=== PATIENT | female | born 1940 | race Caucasian/White ===

== ENCOUNTER 2017-08-31 22:08 | Inpatient (IN) | payer MEDICARE ==
[~2017-08-31] VITALS: Ht 162.6 cm; Wt 52.1 kg
[~2017-08-31 22:08] MED LIST: ASPI81 PO; FISH1000 PO; FURO1TAB93 PO; HYDR-2768 PO; HYDR10TA16 PO; HYDR2.5T PO; METO100T PO; MEVA40TA PO; NIAC500T34 PO; OMEP20TA PO; POTA-71 XX; PRED5 PO; TAB-TAB PO; TEMA15CA PO
[2017-08-31] MEDS ORDERED: SODIUM CHLORIDE 0.9% FLUSH 10 ML FLUSH IVF PRN (22:15)
[2017-08-31 22:19] VITALS: BP 162/75; PULSE 78; RESP 18; O2SAT 95
[2017-08-31] MEDS ORDERED: ONDANSETRON HCL 4 MG/2 ML VIAL ONE (22:27)
[2017-08-31 22:36] LABS: AUTOMATED NEUTROPHIL # 7.1 TH/MM3 (1.8-7.7); BASOPHIL % 0.4 % (0.0-2.0); EOSINOPHIL # 0.1 TH/MM3 (0-0.4); EOSINOPHIL % 1.4 % (0.0-4.0); HEMATOCRIT 42.2 % (35.0-46.0); HEMOGLOBIN 14.3 GM/DL (11.6-15.3); LYMPH % 16.4 % (9.0-44.0); LYMPHOCYTE # 1.5 TH/MM3 (1.0-4.8); MEAN CELL VOLUME 89.8 FL (80.0-100.0); MEAN CORPUSCULAR HEMOGLOBIN 30.5 PG (27.0-34.0); MEAN CORPUSCULAR HGB CONC 33.9 % (32.0-36.0); MONOCYTE # 0.6 TH/MM3 (0-0.9); NEUT % 75.8 % (16.0-70.0); PLATELET COUNT 300 TH/MM3 (150-450); RED CELL DISTRIBUTION WIDTH 13.8 % (11.6-17.2); WHITE BLOOD COUNT 9.3 TH/MM3 (4.0-11.0)
--- NOTE | 2017-08-31 22:44 | RADRPT ---
EXAM DATE/TIME: 08/31/2017 22:18 [facility] COMPARISON: No previous studies available for comparison. INDICATIONS : Right sided weakness. RADIATION DOSE: 52.83 CTDIvol (mGy) MEDICAL HISTORY : Non-responsive. SURGICAL HISTORY : Non-responsive. ENCOUNTER: Initial ACUITY: 1 day PAIN SCALE: Non-responsive LOCATION: cranial TECHNIQUE: Multiple contiguous axial images were obtained of the head. Using automated exposure control and adj ustment of the mA and/or kV according to patient size, radiation dose was kept as low as reasonably a chievable to obtain optimal diagnostic quality images. DICOM format image data is available electro nically for review and comparison. FINDINGS: CEREBRUM: The ventricles are normal for age. There is mild decreased attenuation in the supratentorial white m atter suggesting Kienbck change. No evidence of midline shift, mass lesion, hemorrhage or acute inf arction. No extra-axial fluid collections are seen. POSTERIOR FOSSA: The cerebellum and brainstem are intact. The 4th ventricle is midline. The cerebellopontine angle i s unremarkable. EXTRACRANIAL: The visualized portion of the orbits is intact. SKULL: The calvaria is intact. No evidence of skull fracture. CONCLUSION: 1. No acute findings in the brain. Gordon Huerta MD on August 31, 2017 at 22:41 Board Certified Radiologist. This report was verified electronically.
[2017-08-31] MEDS ORDERED: ONDANSETRON HCL 4 MG/2 ML VIAL IV PUSH ONE (22:45)
[2017-08-31 22:50] VITALS: BP 142/67; PULSE 77; RESP 18; O2SAT 97
[2017-08-31 22:51] LABS: INTERNATIONAL NORMALIZED RATIO 1.2 RATIO; PROTHROMBIN TIME - PATIENT 12.2 SEC (9.8-11.6)
--- NOTE | 2017-08-31 22:51 | RADRPT ---
EXAM DATE/TIME: 08/31/2017 22:24 [facility] COMPARISON: No previous studies available for comparison. INDICATIONS : Possible cerebral vascular accident. MEDICAL HISTORY : None. SURGICAL HISTORY : None. ENCOUNTER: Initial ACUITY: 1 day PAIN SCORE: Non-responsive. LOCATION: Bilateral chest FINDINGS: Mild patient rotation towards the left. Frontal view of the chest demonstrates calcified nodes in th e left hilar and infrahilar region. There is thickening of the minor fissure on the right side, poss ible pleural fluid. Focal prominence infrahilar region on the right side measuring 1.8 cm. Both hem idiaphragms are well delineated. The heart is normal in size for AP technique. Degenerative changes in both shoulders. CONCLUSION: 1. No focal infiltrates seen. 2. 1.8 cm focal opacity right perihilar region of uncertain significance; cannot exclude a focal mass . Gordon Huerta MD on August 31, 2017 at 22:48 Board Certified Radiologist. This report was verified electronically.
[2017-08-31 22:56] LABS: ALBUMIN 3.8 GM/DL (3.4-5.0); AST (GOT) 20 U/L (15-37); BICARBONATE 26.1 MEQ/L (21.0-32.0); BLOOD UREA NITROGEN 14 MG/DL (7-18); CALCIUM 9.5 MG/DL (8.5-10.1); CHLORIDE 103 MEQ/L (98-107); CREATININE 0.93 MG/DL (0.50-1.00); GLOMERULAR FILTRATION RATE 59 ML/MIN (>89); GLUCOSE,RANDOM 139 MG/DL (74-106); SODIUM (NA) 139 MEQ/L (136-145)
[2017-08-31 22:57] LABS: ALT (GPT) 16 U/L (10-53)
[2017-08-31 23:00] LABS: ALKALINE PHOSPHATASE 44 U/L (45-117); TOTAL BILIRUBIN ADULT 0.9 MG/DL (0.2-1.0); TOTAL PROTEIN 7.5 GM/DL (6.4-8.2); TROPONIN I LESS THAN 0.02 NG/ML (0.02-0.05)
[2017-08-31] MEDS ORDERED: ASPIRIN 325 MG TAB PO ONE (23:00)
--- NOTE | 2017-08-31 23:04 | PD ---
HPI Chief Complaint: Neuro Symptoms/ Deficits Time Seen by Provider: 22:13 Travel History International Travel<30 days: No Contact w/Intl Traveler<30days: No Traveled to known affect area: No History of Present Illness HPI 76-year-old female patient presents to the ER today brought in by EMS, stroke alert had been called in the field, patient was last seen normal by family according to EMS at 3:30 PM, somebody had talked her over the phone, and this evening, she appears disoriented, slurred speech, aphasic. I was not able to get much more history from her. Modifying Factors: None Associated Signs & Symptoms: Altered mental status, slurred speech, phasic Risk Factors: Elderly PFSH Past Medical History Arthritis: Yes Cancer: No Cardiac Catheterization: Yes Cardiovascular Problems: Yes High Cholesterol: Yes Chest Pain: No Congestive Heart Failure: Yes Diabetes: No Diminished Hearing: No Gastrointestinal Disorders: No Glaucoma: No Hepatitis: No Hiatal Hernia: No Hypertension: Yes Respiratory: Yes (COPD) Integumentary: No Immunizations Current: Yes Thyroid Disease: No Past Surgical History Abdominal Surgery: Yes Appendectomy: Yes Hysterectomy: Yes Social History Alcohol Use: No Tobacco Use: Yes (1/2-1PPD) Substance Use: No Allergies-Medications (Allergen,Severity, Reaction): Coded Allergies: No Known Allergies (Unverified Adverse Reaction, Unknown, 08/31/17) Reported Meds & Prescriptions Reported Meds & Active Scripts Active Reported Hydrochlorothiazide 12.5 Mg Tab 12.5 Mg PO DAILY Aspirin 81 Mg Chew 81 Mg CHEW DAILY EC-Naprosyn (Naproxen) 500 Mg Tabdr 500 Mg PO BID Metoprolol Tartrate 100 Mg Tab 100 Mg PO BID Omeprazole 20 Mg Tab 20 Mg PO DAILY Meclizine (Meclizine HCl) 12.5 Mg Tab 12.5 Mg PO DIRECTED PRN Unisom Sleepgels (Diphenhydramine (Sleep)) 50 Mg Cap 50 Mg PO HS PRN Losartan (Losartan Potassium) 100 Mg Tab 100 Mg PO DAILY Promethazine (Promethazine HCl) 12.5 Mg Tab 12.5 Mg PO Q6H PRN Lovastatin 20 Mg Tab 20 Mg PO DAILY Prednisone 2.5 Mg Tab 2.5 Mg PO DAILY Furosemide 40 Mg Tab 40 Mg PO DAILY Review of Systems ROS Limitations: Altered Mental Status Physical Exam Narrative GENERAL: Well-developed elderly white female patient who is currently in moderate distress. Awake, oriented to self, poorly directable, not following directions appropriately. SKIN: Focused skin assessment warm/dry. HEAD: Atraumatic. Normocephalic. EYES: Pupils equal and round. No scleral icterus. No injection or drainage. ENT: No nasal bleeding or discharge. Mucous membranes pink and moist. NECK: Trachea midline. No JVD. CARDIOVASCULAR: Regular rate and rhythm. No murmur appreciated. RESPIRATORY: No accessory muscle use. Clear to auscultation. Breath sounds equal bilaterally. GASTROINTESTINAL: Abdomen soft, non-tender, nondistended. Hepatic and splenic margins not palpable. MUSCULOSKELETAL: No obvious deformities. No clubbing. No cyanosis. No edema. NEUROLOGICAL: Awake and alert. Mild facial asymmetry. Motor grossly within normal limits although exam is fairly limited because the patient is disoriented and not following directions well. Aphasic. PSYCHIATRIC: Disoriented; insight and judgment poor. Data Data Last Documented VS Vital Signs Date Time Temp Pulse Resp B/P (MAP) Pulse Ox O2 Delivery O2 Flow Rate FiO2 08/31/17 22:50 77 18 142/67 (92) 97 Nasal Cannula 2.00 Orders Orders Electrocardiogram (08/31/17 22:13) Prothrombin Time / Inr (Pt) (08/31/17 22:13) Act Partial Throm Time (Ptt) (08/31/17 22:13) Complete Blood Count With Diff (08/31/17 22:13) Comprehensive Metabolic Panel (08/31/17 22:13) Troponin I (08/31/17 22:13) Urinalysis - C+S If Indicated (08/31/17 22:13) Ct Brain W/O Iv Contrast(Rout) (08/31/17 22:13) Cta Brain W Iv Contrast W 3d (08/31/17 22:13) Cta Neck W Iv Contrast W 3d (08/31/17 22:13) Chest, Single Ap (08/31/17 22:13) Ecg Monitoring (08/31/17 22:13) Iv Access Insert/Monitor (08/31/17 22:13) Oximetry (08/31/17 22:13) Sodium Chloride 0.9% Flush (Ns Flush) (08/31/17 22:15) Ondansetron Inj (Zofran Inj) (08/31/17 22:27) Ondansetron Inj (Zofran Inj) (08/31/17 22:45) Aspirin (Aspirin) (08/31/17 23:00) Urine Culture (08/31/17 22:37) Iohexol 350 Inj (Omnipaque 350 Inj) (08/31/17 23:29) Blood Culture (08/31/17 23:45) Piperacil-Tazo 4.5 Gm Premix (Zosyn 4.5 (08/31/17 23:45) Admit Order (Ed Use Only) (09/01/17 00:16) Admit To Inpatient (09/01/17 ) Code Status (09/01/17 00:18) Vital Signs (Adult) Q4H (09/01/17 00:18) Nih Stroke Scale - Nihss .On admission and discharge (09/01/17 00:18) Neuro Checks Q4H (09/01/17 00:18) Case Management Consult (09/01/17 ) Activity Bed Rest (09/01/17 00:18) Nursing Bedside Swallow Assess .ONCE (09/01/17 00:18) Scd Bilateral/Knee High DIANA.QSHIFT (09/01/17 00:18) Diet Npo (09/01/17 Breakfast) Hemoglobin (Hgb) A1c (09/01/17 06:00) Lipid Profile (09/01/17 06:00) ^ Hold Medication (09/01/17 00:18) Consult Neurology (09/01/17 ) Sodium Chloride 0.9% Flush (Ns Flush) (09/01/17 09:00) Sodium Chloride 0.9% Flush (Ns Flush) (09/01/17 00:30) Enalaprilat Inj (Vasotec Inj) (09/01/17 00:30) Aspirin Supp (Aspirin Supp) (09/01/17 09:00) Bedside Glucose DIANA.CSUGAR (09/01/17 00:18) ^ Discontinue Insulin Orders (09/01/17 00:18) Insulin Aspart Supplemtl Scale (Novolog (09/01/17 08:00) Dextrose 50% In Jack (Vial) Inj (D50w (Vi (09/01/17 00:30) Glucagon Inj (Glucagon Inj) (09/01/17 00:30) Harness Placer / Telemetry DIANA.Q8H (09/01/17 00:18) Consult Stroke Navigator (09/01/17 ) Scd Bilateral/Knee High DIANA.BID (09/01/17 00:18) Reji Bilateral/Knee High DIANA.QSHIFT (09/01/17 00:20) Inpatient Certification (09/01/17 ) Labs Laboratory Tests Test 08/31/17 22:20 08/31/17 22:37 White Blood Count 9.3 TH/MM3 Red Blood Count 4.70 MIL/MM3 Hemoglobin 14.3 GM/DL Hematocrit 42.2 % Mean Corpuscular Volume 89.8 FL Mean Corpuscular Hemoglobin 30.5 PG Mean Corpuscular Hemoglobin Concent 33.9 % Red Cell Distribution Width 13.8 % Platelet Count 300 TH/MM3 Mean Platelet Volume 7.0 FL Neutrophils (%) (Auto) 75.8 % Lymphocytes (%) (Auto) 16.4 % Monocytes (%) (Auto) 6.0 % Eosinophils (%) (Auto) 1.4 % Basophils (%) (Auto) 0.4 % Neutrophils # (Auto) 7.1 TH/MM3 Lymphocytes # (Auto) 1.5 TH/MM3 Monocytes # (Auto) 0.6 TH/MM3 Eosinophils # (Auto) 0.1 TH/MM3 Basophils # (Auto) 0.0 TH/MM3 CBC Comment DIFF FINAL Differential Comment Prothrombin Time 12.2 SEC Prothromb Time International Ratio 1.2 RATIO Activated Partial Thromboplast Time 22.9 SEC Blood Urea Nitrogen 14 MG/DL Creatinine 0.93 MG/DL Random Glucose 139 MG/DL Total Protein 7.5 GM/DL Albumin 3.8 GM/DL Calcium Level 9.5 MG/DL Alkaline Phosphatase 44 U/L Aspartate Amino Transf (AST/SGOT) 20 U/L Alanine Aminotransferase (ALT/SGPT) 16 U/L Total Bilirubin 0.9 MG/DL Sodium Level 139 MEQ/L Potassium Level 3.3 MEQ/L Chloride Level 103 MEQ/L Carbon Dioxide Level 26.1 MEQ/L Anion Gap 10 MEQ/L Estimat Glomerular Filtration Rate 59 ML/MIN Troponin I LESS THAN 0.02 NG/ML Urine Color YELLOW Urine Turbidity HAZY Urine pH 6.5 Urine Specific [place] 1.017 Urine Protein 30 mg/dL Urine Glucose (UA) NEG mg/dL Urine Ketones NEG mg/dL Urine Occult Blood MOD Urine Nitrite NEG Urine Bilirubin NEG Urine Urobilinogen LESS THAN 2.0 MG/DL Urine Leukocyte Esterase LARGE Urine RBC 72 /hpf Urine WBC /hpf Urine WBC Clumps MOD Urine Squamous Epithelial Cells 2 /hpf Urine Bacteria OCC /hpf Urine Mucus FEW /lpf Urine Yeast (Budding) MANY Microscopic Urinalysis Comment CATH-CULTURE IND MDM Medical Decision Making Medical Screen Exam Complete: Yes Emergency Medical Condition: Yes Medical Record Reviewed: Yes Interpretation(s) EKG shows normal sinus rhythm at a rate of 74 bpm. No signs of acute ST elevations. T-wave inversions notable in the lateral leads. Differential Diagnosis CVA versus ICH versus metabolic issues versus dehydration Narrative Course Patient's last normal was in dispute, her daughter states it was 10 PM last night, and 72 also told EMS at [address], patient would be out of TPA window. CAT scan initially did not show any signs of acute intracranial processes. Aspirin was given as a precaution for possible CVA. She had UTI on lab work and IV antibiotics were initiated after cultures were drawn. Lab work otherwise did not show any significant metabolic issues. My plan would be to admit her for further treatment at this point. Case was discussed with Dr. Smyth for admission. Diagnosis Primary Impression: Altered mental status Admitting Information Admitting Physician Requests: Admit Salvador Madrigal MD Aug 31, 2017 23:04
[2017-08-31 23:05] LABS: BACTERIA, URINE OCC /hpf; BILIRUBIN, URINE NEG (NEG); BLOOD, URINE MOD (NEG); GLUCOSE,URINE NEG (NEG); KETONE, URINE NEG (NEG); MUCUS URINE FEW /lpf (OCC); NITRITE,URINE NEG (NEG); PH, URINE 6.5 (5.0-8.5); SQUAMOUS EPITHELIAL CELL URINE 2 /hpf (0-5); URINE COLOR YELLOW (YELLW/STRAW); URINE LEUKOCYTE ESTERASE LARGE (NEG); WHITE BLOOD CELL CLUMPS MOD
[2017-08-31] MEDS ORDERED: NAPR-810 PO (23:18)
[2017-08-31] MEDS ORDERED: UNIS50CA PO (23:18)
[2017-08-31] MEDS ORDERED: METO100T PO (23:18)
[2017-08-31] MEDS ORDERED: LOSA100T PO (23:18)
[2017-08-31] MEDS ORDERED: PROM12.54 PO (23:18)
[2017-08-31] MEDS ORDERED: PRED2.5T PO (23:18)
[2017-08-31] MEDS ORDERED: ASPI-516 CHEW (23:18)
[2017-08-31] MEDS ORDERED: MECL12.574 PO (23:18)
[2017-08-31] MEDS ORDERED: LOVA20TA PO (23:18)
[2017-08-31] MEDS ORDERED: FURO40TA PO (23:18)
[2017-08-31] MEDS ORDERED: OMEP20TA93 PO (23:18)
[2017-08-31] MEDS ORDERED: HYDR12.56 PO (23:18)
[2017-08-31] MEDS ORDERED: IOHEXOL 350 MG/ML 10 ML VIAL (for RAD DIAG) IVCONTRAST ONE (23:29)
--- NOTE | 2017-08-31 23:42 | RADRPT ---
EXAM DATE/TIME: 08/31/2017 23:08 [facility] COMPARISON: No previous studies available for comparison. INDICATIONS : Right sided weakness. IV CONTRAST: 75 cc Omnipaque 350 (iohexol) IV ; Cumulative dose for multiple exams. RADIATION DOSE: 9.78 CTDIvol (mGy) ; Combined studies MEDICAL HISTORY : Non-responsive. SURGICAL HISTORY : Non-responsive. ENCOUNTER: Initial ACUITY: 1 day PAIN SCALE: 0/10 LOCATION: neck Elevated flow velocities and ICA/CCA ratios have been found to correlate with increased degrees of vessel stenosis, calculated as percentage of diameter relative to a normal segment of distal ICA/CCA. TECHNIQUE: Volumetric scanning was performed using a multirow detector CT scanner. The data was post processed with a variety of visualization algorithms including full-volume maximum intensity projection, multip lanar sliding thin-slab reformation, curved-planar reformation, and surface-rendering techniques. Us ing automated exposure control and adjustment of the mA and/or kV according to patient size, radiatio n dose was kept as low as reasonably achievable to obtain optimal diagnostic quality images. DICOM f ormat image data is available electronically for review and comparison. FINDINGS: AORTIC ARCH: There is a three-vessel origin of the great vessels from the aorta. No evidence of ostial narrowing. RIGHT CAROTID: The common carotid artery is intact. The carotid bulb has a normal configuration without ulceration o r narrowing. The internal carotid artery lumen is smooth without stenosis. The external carotid garret ry is intact. LEFT CAROTID: The common carotid artery is intact. The carotid bulb has a normal configuration without ulceration or narrowing. The internal carotid artery lumen is smooth without stenosis. The external carotid ar ekta is intact. VERTEBRALS: The vertebral arteries have a symmetric diameter. No stenotic lesions are seen. CONCLUSION: Negative CTA of the carotids. Gordon Huerta MD on August 31, 2017 at 23:33 Board Certified Radiologist. This report was verified electronically.
[2017-08-31] MEDS ORDERED: PIPERACIL-TAZO 4.5 GM PREMIX 100 ML IV ONE (23:45)
--- NOTE | 2017-08-31 23:49 | RADRPT ---
EXAM DATE/TIME: 08/31/2017 23:08 [facility] COMPARISON: No previous studies available for comparison. INDICATIONS : Right side weakness. IV CONTRAST: 75 cc Omnipaque 350 (iohexol) IV ; Cumulative dose for multiple exams. RADIATION DOSE: 9.78 CTDIvol (mGy) MEDICAL HISTORY : Non-responsive. SURGICAL HISTORY : Non-responsive. ENCOUNTER: Initial ACUITY: 1 day PAIN SCALE: 0/10 LOCATION: cranial TECHNIQUE: Volumetric scanning was performed using a multi-row detector CT scanner. The data was post processed with a variety of visualization algorithms including full volume maximum intensity projection, multi -planar sliding thin slab reformation, curved planar reformation, and surface rendering techniques. Using automated exposure control and adjustment of the mA and/or kV according to patient size, radiat ion dose was kept as low as reasonably achievable to obtain optimal diagnostic quality images. DICO M format image data is available electronically for review and comparison. FINDINGS: There is excellent visualization of the major intracranial arteries out to the second-order branch ve ssels. There is no evidence vessel truncation or stenosis, and no evidence for vascular malformation . 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 Flow is seen in the left PCOM. The right posterior cerebral artery arises from the anterior circulat ion. Intercommunicating artery is not identified. CONCLUSION: No evidence of vessel truncation. 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 Gordon Huerta MD on August 31, 2017 at 23:44 Board Certified Radiologist. This report was verified electronically.
[2017-09-01] VITALS (9 sets, daily range): BP systolic 121–179; BP diastolic 66–91; PULSE 75–91; RESP 14–22; TEMP 97.2–99.5; O2SAT 91–100
[2017-09-01] MEDS ORDERED: ENALAPRILAT 1.25 MG/ML VIAL IV PUSH PRN (00:30)
[2017-09-01] MEDS ORDERED: SODIUM CHLORIDE 0.9% FLUSH 10 ML FLUSH IV FLUSH PRN (00:30)
[2017-09-01] MEDS ORDERED: DEXTROSE 50% IN WATER 50 ML VIAL(D50) IV PUSH PRN (00:30)
[2017-09-01] MEDS ORDERED: GLUCAGON 1 MG/ML VIAL OTHER PRN (00:30)
--- NOTE | 2017-09-01 02:44 | HHI.HP ---
[facility] Unknown Admission Diagnosis Altered mental status/TIA/UTI Diagnoses: (1) Encephalopathy Diagnosis: Principal (2) CVA (cerebral vascular accident) Diagnosis: Principal (3) UTI (urinary tract infection) Diagnosis: Principal Travel History International Travel<30 Days: No Contact w/Intl Traveler <30 Da: No Traveled to Known Affected Are: No History of Present Illness This is a 76-year-old female with a PMH of HTN, Hyperlipidemia, COPD and Tobacco Abuse who is brought to the ER by EMS secondary to AMS, Stroke Alert initiated in field prior to arrival. Pt unable to provide any history as she is aphasic, not following commands. Per Daughter, pt is AA&Ox4 at baseline, ambulates without difficulty. Today pt noted to be confused, not making sense, slurring speech at approx 3:30pm. On arrival, BP 142/67, HR 77, O2 sat 97% on 2L NC, Afebrile. CBC unremarkable. Chemistry unremarkable with the. GFR 59. Troponin negative. INR 1.2. CXR with no focal infiltrates, 1.8 cm opacity right perihilar region, cannot exclude mass. CT Head negative. 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 CTA Neck negative. S/p Zosyn in ER. Review of Systems Except as stated in HPI: all other systems reviewed are Neg ROS: Unable to obtain secondary to AMS. Past Family Social History Past Medical History PMH: HTN, Hyperlipidemia, COPD and Tobacco Abuse Past Surgical History PAST SURGICAL HISTORY: Appendectomy, Hysterectomy Allergies: Coded Allergies: No Known Allergies (Unverified Allergy, Unknown, 09/01/17) Family History PAST FAMILY HISTORY: Reviewed. No h/o DM or CAD Social History PAST SOCIAL HISTORY: Positive for tobacco. Negative for alcohol or drugs. Physical Exam Vital Signs Vital Signs Date Time Temp Pulse Resp B/P (MAP) Pulse Ox O2 Delivery O2 Flow Rate FiO2 09/01/17 01:30 98.5 79 22 173/81 (111) 92 09/01/17 01:20 08/31/17 22:50 77 18 142/67 (92) 97 Nasal Cannula 2.00 08/31/17 22:19 78 18 162/75 (104) 95 Room Air Physical Exam PE: GENERAL: Elderly white female, mildly agitated, says "yes" to name otherwise not following commands. HEENT: PERRLA, EOMI. No scleral icterus or conjunctival pallor. No lid lag or facial droop. CARDIOVASCULAR: Regular rate and rhythm. No obvious murmurs to auscultation. No chest tenderness to palpation. RESPIRATORY: No obvious rhonchi or wheezing. Clear to auscultation. Breath sounds equal bilaterally. GASTROINTESTINAL: Abdomen soft, non-tender, nondistended. BS normal. MUSCULOSKELETAL: Extremities without clubbing, cyanosis, or edema. No obvious deformities. NEUROLOGICAL: Awake, confused, difficult to assess strength as not following commands. Moving both upper and lower extremities spontaneously. Laboratory Laboratory Tests Test 08/31/17 22:20 08/31/17 22:37 White Blood Count 9.3 Red Blood Count 4.70 Hemoglobin 14.3 Hematocrit 42.2 Mean Corpuscular Volume 89.8 Mean Corpuscular Hemoglobin 30.5 Mean Corpuscular Hemoglobin Concent 33.9 Red Cell Distribution Width 13.8 Platelet Count 300 Mean Platelet Volume 7.0 Neutrophils (%) (Auto) 75.8 Lymphocytes (%) (Auto) 16.4 Monocytes (%) (Auto) 6.0 Eosinophils (%) (Auto) 1.4 Basophils (%) (Auto) 0.4 Neutrophils # (Auto) 7.1 Lymphocytes # (Auto) 1.5 Monocytes # (Auto) 0.6 Eosinophils # (Auto) 0.1 Basophils # (Auto) 0.0 CBC Comment DIFF FINAL Differential Comment Prothrombin Time 12.2 Prothromb Time International Ratio 1.2 Activated Partial Thromboplast Time 22.9 Blood Urea Nitrogen 14 Creatinine 0.93 Random Glucose 139 Total Protein 7.5 Albumin 3.8 Calcium Level 9.5 Alkaline Phosphatase 44 Aspartate Amino Transf (AST/SGOT) 20 Alanine Aminotransferase (ALT/SGPT) 16 Total Bilirubin 0.9 Sodium Level 139 Potassium Level 3.3 Chloride Level 103 Carbon Dioxide Level 26.1 Anion Gap 10 Estimat Glomerular Filtration Rate 59 Troponin I LESS THAN 0.02 Urine Color YELLOW Urine Turbidity HAZY Urine pH 6.5 Urine Specific [place] 1.017 Urine Protein 30 Urine Glucose (UA) NEG Urine Ketones NEG Urine Occult Blood MOD Urine Nitrite NEG Urine Bilirubin NEG Urine Urobilinogen LESS THAN 2.0 Urine Leukocyte Esterase LARGE Urine RBC 72 Urine WBC Urine WBC Clumps MOD Urine Squamous Epithelial Cells 2 Urine Bacteria OCC Urine Mucus FEW Urine Yeast (Budding) MANY Microscopic Urinalysis Comment CATH-CULTURE IND Date/Time Source Procedure Growth Status 09/01/17 00:13 Blood Peripheral Aerobic Blood Culture Pending Received 09/01/17 00:13 Blood Peripheral Anaerobic Blood Culture Pending Received 08/31/17 22:37 Urine Catheterized Urine Urine Culture Pending Worksheet Result Diagram: 08/31/17221908/31/172219 Caprini VTE Risk Assessment Caprini VTE Risk Assessment: No/Low Risk (score <= 1) Caprini Risk Assessment Model Point Value = 1 Point Value = 2 Point Value = 3 Point Value = 5 Age 41-60 Minor surgery BMI > 25 kg/m2 Swollen legs Varicose veins or History of unexplained or recurrent spontaneous Oral contraceptives or hormone replacement Sepsis (< 1 month) Serious lung disease, including pneumonia (< 1 month) Abnormal pulmonary function Acute myocardial infarction Congestive heart failure (< 1 month) History of inflammatory bowel disease Medical patient at bed rest Age 61-74 Arthroscopic surgery Major open surgery (> 45 min) Laparoscopic surgery (> 45 min) Malignancy Confined to bed (> 72 hours) Immobilizing plaster cast Central venous access Age >= 75 History of VTE Family history of VTE Factor V Leiden Prothrombin [id number] Lupus anticoagulant Anticardiolipin antibodies Elevated serum homocysteine Heparin-induced thrombocytopenia Other congenital or acquired thrombophilia Stroke (< 1 month) Elective arthroplasty Hip, pelvis, or leg fracture Acute spinal cord injury (< 1 month) Prophylaxis Regimen Total Risk Factor Score Risk Level Prophylaxis Regimen 0-1 Low Early ambulation 2 Moderate Order ONE of the following: *Sequential Compression Device (SCD) *Heparin 5000 units SQ BID 3-4 Higher Order ONE of the following medications: *Heparin 5000 units SQ TID *Enoxaparin/Lovenox 40 mg SQ daily (WT < 150 kg, CrCl > 30 mL/min) *Enoxaparin/Lovenox 30 mg SQ daily (WT < 150 kg, CrCl > 10-29 mL/min) *Enoxaparin/Lovenox 30 mg SQ BID (WT < 150 kg, CrCl > 30 mL/min) AND/OR *Sequential Compression Device (SCD) 5 or more Highest Order ONE of the following medications: *Heparin 5000 units SQ TID (Preferred with Epidurals) *Enoxaparin/Lovenox 40 mg SQ daily (WT < 150 kg, CrCl > 30 mL/min) *Enoxaparin/Lovenox 30 mg SQ daily (WT < 150 kg, CrCl > 10-29 mL/min) *Enoxaparin/Lovenox 30 mg SQ BID (WT < 150 kg, CrCl > 30 mL/min) AND *Sequential Compression Device (SCD) Assessment and Plan Problem List: (1) Encephalopathy ICD Code: G93.40 - Encephalopathy, unspecified (2) CVA (cerebral vascular accident) ICD Code: I63.9 - Cerebral infarction, unspecified (3) UTI (urinary tract infection) ICD Code: N39.0 - Urinary tract infection, site not specified Assessment and Plan A/P: 1. Encephalopathy: acute episode of AMS noted by family, previously AA&Ox4 at baseline per Daughter. Neuro Checks. CT Head w/ no acute findings, images reviewed by me. Possibly compounded by UTI, continue w/ IV Rocephin. 2. CVA: slurred speech/confusion noted at 3:30pm, outside TPA window, previously aphasic, now able to say "yes". Difficult to assess strength as not following commands. CTA Head w/ no truncation, 3mm calcified aneurysm right ICA , CTA Neck negative, images reviewed by me. NPO, IVF, PT/Speech Consult for eval/tx. Consult Neurology for further evaluation. 3. UTI: U/a w/ UTI, follow up cultures, continue w/ IV Abx, IVF. 4. DVT Prophylaxis: SCD/Teds 5. Social work for d/c planning as needed. 6. Case discussed w/ ER physician at length, labs/records/imaging reviewed by me. Physician Certification 2 Midnight Certification Type: Admission for Inpatient Services Order for Inpatient Services The services are ordered in accordance with Medicare regulations or non- Medicare payer requirements, as applicable. In the case of services not specified as inpatient-only, they are appropriately provided as inpatient services in accordance with the 2-midnight benchmark. Estimated LOS (days): 2 days is the estimated time the patient will need to remain in the hospital, assuming treatment plan goals are met and no additional complications. Post-Hospital Plan: Not yet determined Nicolle Smyth MD Sep 01, 2017 02:44
[2017-09-01] MEDS ORDERED: ONDANSETRON HCL 4 MG/2 ML VIAL IV PUSH PRN (04:00)
[2017-09-01 07:08] LABS: CHOLESTEROL 207 MG/DL (120-200); TRIGLYCERIDES 148 MG/DL (42-150)
[2017-09-01 07:09] LABS: CHOLESTEROL/ HDL RATIO 3.39 RATIO; LDL CHOLESTEROL 116 MG/DL (0-99)
[2017-09-01] MEDS: INSULIN ASPART SUPPLEMENTAL SCALE SQ SCH ×4 (07:39→20:19)
[2017-09-01] MEDS: SODIUM CHLORIDE 0.9% FLUSH 10 ML FLUSH IV FLUSH SCH ×2 (07:44→21:00)
[2017-09-01] MEDS ORDERED: ASPIRIN 300 MG SUPP RECTAL SCH (09:00)
[2017-09-01] MEDS ORDERED: ASPIRIN 81 MG CHEW TAB CHEW SCH (09:00)
[2017-09-01] MEDS ORDERED: MECLIZINE HCL 25 MG TAB PO PRN (09:00)
[2017-09-01] MEDS ORDERED: POTASSIUM CHLORIDE 25 MEQ EFFERVESCENT TAB PO ONE (09:15)
[2017-09-01] MEDS: POTASSIUM CHLORIDE 25 MEQ EFFERVESCENT TAB PO ONE ×2 (09:15→11:05)
[2017-09-01] MEDS ORDERED: ASPIRIN 325 MG TAB PO SCH (09:15)
--- NOTE | 2017-09-01 09:18 | HHI.PR ---
Subjective Remarks This is a 76-year-old female with a PMH of HTN, Hyperlipidemia, COPD and Tobacco Abuse who is brought to the ER by EMS secondary to AMS, Stroke Alert initiated in field prior to arrival. Pt unable to provide any history as she is aphasic, not following commands. Per Daughter, pt is AA&Ox4 at baseline, ambulates without difficulty. Today pt noted to be confused, not making sense, slurring speech at approx 3:30pm. On arrival, BP 142/67, HR 77, O2 sat 97% on 2L NC, Afebrile. CBC unremarkable. Chemistry unremarkable with the. GFR 59. Troponin negative. INR 1.2. CXR with no focal infiltrates, 1.8 cm opacity right perihilar region, cannot exclude mass. CT Head negative. 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 CTA Neck negative. S/p Zosyn in ER. 09-01 patient remains totally aphasic Not able to follow any commands. Past swallow eval with pured diet and thickened liquids We will resume her home medications Continue on aspirin and statin Await neurological evaluation Physical therapy, occupational therapy, and speech therapy evaluations Objective Vitals Vital Signs Date Time Temp Pulse Resp B/P (MAP) Pulse Ox O2 Delivery O2 Flow Rate FiO2 09/01/17 04:00 98.4 91 20 179/84 (115) 95 09/01/17 04:00 86 09/01/17 02:10 84 09/01/17 01:30 98.5 79 22 173/81 (111) 92 09/01/17 01:20 08/31/17 22:50 77 18 142/67 (92) 97 Nasal Cannula 2.00 08/31/17 22:19 78 18 162/75 (104) 95 Room Air I/O 08/31/17 08/31/17 08/31/17 09/01/17 09/01/17 09/01/17 07:00 15:00 23:00 07:00 15:00 23:00 Intake Total 100 ml Balance 100 ml Intake Oral 0 ml IV Total 100 ml # Voids 1 # Bowel Movements 0 Result Diagram: 08/31/17 2220 08/31/17 2220 Other Results Laboratory Tests Test 08/31/17 22:20 08/31/17 22:37 3/10/18 05:22 09/01/17 06:00 White Blood Count 9.3 TH/MM3 Red Blood Count 4.70 MIL/MM3 Hemoglobin 14.3 GM/DL Hematocrit 42.2 % Mean Corpuscular Volume 89.8 FL Mean Corpuscular Hemoglobin 30.5 PG Mean Corpuscular Hemoglobin Concent 33.9 % Red Cell Distribution Width 13.8 % Platelet Count 300 TH/MM3 Mean Platelet Volume 7.0 FL Neutrophils (%) (Auto) 75.8 % Lymphocytes (%) (Auto) 16.4 % Monocytes (%) (Auto) 6.0 % Eosinophils (%) (Auto) 1.4 % Basophils (%) (Auto) 0.4 % Neutrophils # (Auto) 7.1 TH/MM3 Lymphocytes # (Auto) 1.5 TH/MM3 Monocytes # (Auto) 0.6 TH/MM3 Eosinophils # (Auto) 0.1 TH/MM3 Basophils # (Auto) 0.0 TH/MM3 CBC Comment DIFF FINAL Differential Comment Prothrombin Time 12.2 SEC Prothromb Time International Ratio 1.2 RATIO Activated Partial Thromboplast Time 22.9 SEC Blood Urea Nitrogen 14 MG/DL Creatinine 0.93 MG/DL Random Glucose 139 MG/DL Total Protein 7.5 GM/DL Albumin 3.8 GM/DL Calcium Level 9.5 MG/DL Alkaline Phosphatase 44 U/L Aspartate Amino Transf (AST/SGOT) 20 U/L Alanine Aminotransferase (ALT/SGPT) 16 U/L Total Bilirubin 0.9 MG/DL Sodium Level 139 MEQ/L Potassium Level 3.3 MEQ/L Chloride Level 103 MEQ/L Carbon Dioxide Level 26.1 MEQ/L Anion Gap 10 MEQ/L Estimat Glomerular Filtration Rate 59 ML/MIN Troponin I LESS THAN 0.02 NG/ML Urine Color YELLOW Urine Turbidity HAZY Urine pH 6.5 Urine Specific Helper 1.017 Urine Protein 30 mg/dL Urine Glucose (UA) NEG mg/dL Urine Ketones NEG mg/dL Urine Occult Blood MOD Urine Nitrite NEG Urine Bilirubin NEG Urine Urobilinogen LESS THAN 2.0 MG/DL Urine Leukocyte Esterase LARGE Urine RBC 72 /hpf Urine WBC /hpf Urine WBC Clumps MOD Urine Squamous Epithelial Cells 2 /hpf Urine Bacteria OCC /hpf Urine Mucus FEW /lpf Urine Yeast (Budding) MANY Microscopic Urinalysis Comment CATH-CULTURE IND Triglycerides Level 148 MG/DL Cholesterol Level 207 MG/DL LDL Cholesterol 116 MG/DL HDL Cholesterol 61.0 MG/DL Cholesterol/HDL Ratio 3.39 RATIO Imaging Last Impressions Neck CTA [id number]/31/172212 Signed Impressions: Service Date/Time: Thursday, August 31, 2017 23:08 - CONCLUSION: Negative CTA of the carotids. Gordon Huerta MD Head CTA [id number]/172212 Signed Impressions: Service Date/Time: Thursday, August 31, 2017 23:08 - CONCLUSION: No evidence of vessel truncation. 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 Gordon Huerta MD Head CT [id number]/31/172212 Signed Impressions: Service Date/Time: Thursday, August 31, 2017 22:18 - CONCLUSION: 1. No acute findings in the brain. Gordon Huerta MD Chest X-Ray [id number]/172212 Signed Impressions: Service Date/Time: Thursday, August 31, 2017 22:24 - CONCLUSION: 1. No focal infiltrates seen. 2. 1.8 cm focal opacity right perihilar region of uncertain significance; cannot exclude a focal mass. Gordon Huerta MD Objective Remarks GENERAL: She is awake and alert --completely aphasic --not oriented at all-- not following any commands-- not making any sense SKIN: Warm and dry. HEAD: Atraumatic. Normocephalic. EYES: Pupils equal and round. No scleral icterus. No injection or drainage. Extraocular muscles appear grossly intact ENT: No nasal bleeding or discharge. Mucous membranes pink and moist. Tongue is midline NECK: Trachea midline. No JVD. Supple CARDIOVASCULAR: Regular rate and rhythm. S1-S2 no S3 or S4 RESPIRATORY: No accessory muscle use. Clear to auscultation. Breath sounds equal bilaterally. GASTROINTESTINAL: Abdomen soft, non-tender, nondistended. Hepatic and splenic margins not palpable. MUSCULOSKELETAL: Extremities without clubbing, cyanosis, or edema. No obvious deformities. NEUROLOGICAL: Awake and alert. No obvious cranial nerve deficits. Motor grossly within normal limits. Five out of 5 muscle strength in the arms and legs. Abnormal speech. Totally aphasic PSYCHIATRIC: inAppropriate mood and affect; insight and judgment abnormal. Patient remains totally aphasic. Procedures None Medications and IVs Current Medications Sodium Chloride (NS Flush) 2 ml UNSCH PRN IVF FLUSH AFTER USING IV ACCESS; Start 08/31/17 at 22:15; Stop 09/01/17 at 00:39; Status DC Ondansetron HCl (Zofran Inj) 4 mg STK-MED ONCE .ROUTE ; Start 08/31/17 at 22:27; Stop 08/31/17 at 22:28; Status DC Ondansetron HCl (Zofran Inj) 4 mg ONCE ONCE IV PUSH Last administered on at 22:51; Start 08/31/17 at 22:45; Stop 08/31/17 at 22:46; Status DC Aspirin (Aspirin) 325 mg ONCE ONCE PO Last administered on 08/31/17at 23:30; Start 08/31/17 at 23:00; Stop 08/31/17 at 23:01; Status DC Iohexol (Omnipaque 350 Inj) 75 ml STK-MED ONCE IVCONTRAST Last administered on 08/31/17at 23:29; Start 08/31/17 at 23:29; Stop 08/31/17 at 23:30; Status DC Piperacillin Sod/ Tazobactam Sod 100 ml @ 200 mls/hr ONCE ONCE IV Last administered on 09/01/17at 00:23; Start 08/31/17 at 23:45; Stop 09/01/17 at 00:14 ; Status DC Sodium Chloride (NS Flush) 2 ml BID IV FLUSH Last administered on 09/01/17at 07: 44; Start 09/01/17 at 09:00 Sodium Chloride (NS Flush) 2 ml UNSCH PRN IV FLUSH FLUSH AFTER USING IV ACCESS ; Start 09/01/17 at 00:30 Enalaprilat (Vasotec Inj) 1.25 mg Q4H PRN IV PUSH For SBP > 220 or DBP > 120; Start 09/01/17 at 00:30 Aspirin (Aspirin Supp) 300 mg DAILY RECTAL Last administered on 09/01/17at 07:44 ; Start 09/01/17 at 09:00 Insulin Aspart (NovoLOG SUPPLEMENTAL SCALE) 1 ACHS SQ ; Start 09/01/17 at 08:00 Dextrose (D50w (Vial) Inj) 50 ml UNSCH PRN IV PUSH HYPOGLYCEMIA-SEE COMMENTS; Start 09/01/17 at 00:30 Glucagon (Glucagon Inj) 1 mg UNSCH PRN OTHER HYPOGLYCEMIA-SEE COMMENTS; Start 09/01/17 at 00:30 Ondansetron HCl (Zofran Inj) 4 mg Q6HR PRN IV PUSH NAUSEA OR VOMITING Last administered on 09/01/17at 04:07; Start 09/01/17 at 04:00 A/P Problem List: (1) Encephalopathy ICD Code: G93.40 - Encephalopathy, unspecified (2) CVA (cerebral vascular accident) ICD Code: I63.9 - Cerebral infarction, unspecified (3) UTI (urinary tract infection) ICD Code: N39.0 - Urinary tract infection, site not specified (4) Hypertension ICD Code: I10 - Essential (primary) hypertension (5) Hyperlipidemia ICD Code: E78.5 - Hyperlipidemia, unspecified (6) GERD (gastroesophageal reflux disease) ICD Code: K21.9 - Gastro-esophageal reflux disease without esophagitis (7) Vertigo ICD Code: R42 - Dizziness and giddiness Assessment and Plan 1. Encephalopathy: acute episode of AMS noted by family, previously AA&Ox4 at baseline per Daughter. Neuro Checks. CT Head w/ no acute findings, images reviewed by me. Possibly compounded by UTI, continue w/ IV Rocephin. 2. CVA: slurred speech/confusion noted at 3:30pm, outside TPA window, previously aphasic, now able to say "yes". Difficult to assess strength as not following commands. CTA Head w/ no truncation, 3mm calcified aneurysm right ICA , CTA Neck negative, images reviewed by me. NPO, IVF, PT/Speech Consult for eval/tx. Consult Neurology for further evaluation. 3. UTI: U/a w/ UTI, follow up cultures, continue w/ IV Abx, IVF. HYPOKALEMIA WILL REPLACE Hypertension resume home medications Hyperlipidemia resume all medications AM LABS PT, OT, and ST 4. DVT Prophylaxis: SCD/Teds 5. Social work for d/c planning as needed. Discharge Planning Pending neurological clearance May need to go to SNF at discharge Aleksander Smith DO Sep 01, 2017 09:18
[2017-09-01] MEDS ORDERED: IOHEXOL 350 MG/ML 10 ML VIAL (for RAD DIAG) IVCONTRAST ONE (10:32)
[2017-09-01] MEDS ORDERED: LORazepam 2 MG/ML VIAL IV PUSH ONE (11:00)
[2017-09-01] MEDS: LOSARTAN 50 MG TAB PO SCH (11:05)
[2017-09-01] MEDS: METOPROLOL TARTRATE 100 MG TAB PO SCH ×2 (11:05→21:39)
[2017-09-01] MEDS: PANTOPRAZOLE SOD 20 MG DELAYED RELEASE TAB PO SCH (11:05)
[2017-09-01] MEDS: PRAVASTATIN SOD 20 MG TAB PO SCH (11:05)
[2017-09-01] MEDS: HYDROCHLOROTHIAZIDE 12.5 MG CAP PO SCH (11:05)
[2017-09-01] MEDS: cefTRIAXone INJ 1,000 MG in SODIUM CHLORIDE 0.9% INJ 100 ML IV SCH (11:06)
[2017-09-01] MEDS: predniSONE 5 MG TAB PO SCH (11:06)
[2017-09-01] MEDS: FUROSEMIDE 40 MG TAB PO SCH (11:08)
--- NOTE | 2017-09-01 11:11 | RADRPT ---
EXAM DATE/TIME: 09/01/2017 10:13 [facility] COMPARISON: CHEST SINGLE AP, August 31, 2017, 22:24. INDICATIONS : Right perihilar opacity on chest x-ray; evaluate for mass. IV CONTRAST: 65 cc Omnipaque 350 (iohexol) IV RADIATION DOSE: 9.41 CTDIvol (mGy) MEDICAL HISTORY : Stroke. Chronic obstructive pulmonary disease. Cardiovascular diseaseHypertension. SURGICAL HISTORY : Appendectomy. Hysterectomy. ENCOUNTER: Initial ACUITY: 1 day PAIN SCALE: Non-responsive LOCATION: chest TECHNIQUE: Volumetric scanning of the chest was performed. Using automated exposure control and adjustment of t he mA and/or kV according to patient size, radiation dose was kept as low as reasonably achievable to obtain optimal diagnostic quality images. DICOM format image data is available electronically for review and comparison. Follow-up recommendations for detected pulmonary nodules are based at a minimum on nodule size and pa tient risk factors according to Fleischner Society Guidelines. FINDINGS: LUNGS: There are no suspicious pulmonary masses. Benign-appearing cysts are identified in the right cardioph renic angle that measure 4.6 4.8 cm in size. The cysts have a broad base along the right lisa. There is no evidence of nodularity or abnormal enhancement. There is no evidence of acute airspace disease. PLEURA: Mild pleural thickening is identified in the left lung base. MEDIASTINUM: The heart is moderately enlarged. Calcific coronary artery disease is noted. There is no evidence of hilar or mediastinal lymphadenopathy. AXILLAE: Within normal limits. No lymphadenopathy. SKELETAL: Advanced arthropathy is identified at both shoulder joints. There is significant joint space narrowin g, subchondral sclerosis and marginal spurring involving the glenohumeral joint. Degenerative disc di sease and spondylosis is seen throughout these thoracic spine. There are no destructive bone lesions. MISCELLANEOUS: Simple left renal cysts are noted. CONCLUSION: 1. Right-sided cardiophrenic opacities represent benign cysts and are characteristic of duplication cysts or pericardial cysts. 2. No suspicious pulmonary mass or acute airspace disease. 3. Moderate cardiomegaly with calcific described disease of the coronary arteries. 4. Simple left renal cyst. 5. Significant bilateral shoulder arthropathy. Carlin Walters MD on September 01, 2017 at 11:02 Board Certified Radiologist. This report was verified electronically.
[2017-09-01] MEDS ORDERED: GADODIAMIDE PF 287 MG/ML 20 ML VIAL (for RAD MRI) IVCONTRAST ONE (12:36)
[2017-09-01 12:37] LABS: HEMOGLOBIN A1C 5.1 % (4.3-6.0)
--- NOTE | 2017-09-01 13:37 | RADRPT ---
EXAM DATE/TIME: 09/01/2017 12:09 [facility] COMPARISON: No previous studies available for comparison. INDICATIONS : Expressive aphasia. MEDICAL HISTORY : Hypertension. Congestive heart failure. SURGICAL HISTORY : Appendectomy. Hysterectomy. ENCOUNTER: Initial ACUITY: 1 day PAIN SCORE: 0/10 LOCATION: cranial Please note a normal MRA of the brain does not entirely exclude the possibility of a small aneurysm, nor the possibility of distal intracranial vessel disease. TECHNIQUE: 3D time of flight MRA was performed. Source images, multiplanar STS MIP, and 3D volume MIP reconstru ctions were reviewed. FINDINGS: There is suboptimal visualization of the major intracranial arteries out to the second-order branch v essels. Significant motion is identified on the source images. Poor flow related enhancement is identified throughout the cerebral circulation. Focal luminal irregu larity with areas of mild to moderate narrowing identified in both middle cerebral arteries. The anterior cerebral arteries are patent. The vertebrobasilar circulation demonstrates lack of flow related enhancement in the distal left vert ebral artery which may represent a high-grade stenosis. The right vertebral artery is small. There is diffuse narrowing of the basilar artery without evidence of focal high-grade stenosis. Decreased faizan w related enhancement is identified in both posterior cerebral arteries. There is no evidence of significant aneurysmal enlargement or mass effect. CONCLUSION: 1. Suboptimal visualization of the intracranial vessels do to motion artifact. 2. Irregularity is evident throughout the middle and posterior cerebral arteries. 3. Focal areas of diminished flow related enhancement which may represent focal stenoses however cons idering the amount of background motion these may be artifactual. Carlin Walters MD on September 01, 2017 at 13:27 Board Certified Radiologist. This report was verified electronically.
--- NOTE | 2017-09-01 13:39 | RADRPT ---
EXAM DATE/TIME: 09/01/2017 12:09 [facility] COMPARISON: No previous studies available for comparison. INDICATIONS : Expressive aphasia. CONTRAST: 20 cc Omniscan (gadodiamide) IV MEDICAL HISTORY : Hypertension. Congestive heart failure. SURGICAL HISTORY : Appendectomy. Hysterectomy. ENCOUNTER: Initial ACUITY: 1 day PAIN SCORE: 0/10 LOCATION: cranial TECHNIQUE: Multiplanar, multisequence MRI of the brain was performed both prior to and following the administrat ion of paramagnetic contrast. FINDINGS: CEREBRUM: The ventricles are normal for age. No evidence of midline shift, mass lesion, hemorrhage or acute in farction. No extraaxial fluid collections are seen. There is no expansion of the sella turcica which is filled with CSF. WHITE MATTER: Scattered signal abnormalities are seen in the white matter. POSTERIOR FOSSA: The cerebellum and brainstem are intact. The 4th ventricle is midline. The cerebellopontine angle is unremarkable. The cerebellar tonsils are normal in position. DIFFUSION IMAGING: No focal areas of restricted diffusion are seen. No evidence of acute infarction. EXTRACRANIAL: The visualized portions of the orbits and paranasal sinuses are unremarkable. POST-CONTRAST: No abnormal areas of parenchymal or dural enhancement. No evidence of blood-brain barrier breakdown. CONCLUSION: 1. Mild cerebral white matter disease characteristic of chronic microvascular ischemic changes. 2. No evidence of acute infarct, hemorrhage, mass or edema. 3. Empty sella appearance. 4. No evidence of enhancing intra-or extra-axial lesions. Carlin Walters MD on September 01, 2017 at 13:35 Board Certified Radiologist. This report was verified electronically.
--- NOTE | 2017-09-01 13:42 | RADRPT ---
EXAM DATE/TIME: 09/01/2017 12:09 [facility] COMPARISON: No previous studies available for comparison. INDICATIONS : Expressive aphasia. CONTRAST: 20 cc Omniscan (gadodiamide) IV MEDICAL HISTORY : Hypertension. Congestive heart failure. SURGICAL HISTORY : Appendectomy. Hysterectomy. ENCOUNTER: Initial ACUITY: 1 day PAIN SCORE: 5/10 LOCATION: Abdomen. Percent stenosis is calculated using the diameter of the stenotic region over the diameter of the nor mal distal internal carotid artery. TECHNIQUE: Bolus infused MRA of the extracranial circulation was performed using a neurovascular coil. Post pro cessing was performed including rotating subvolume maximum intensity projections of each carotid garret ry, rotating full volume maximum intensity projections of both carotid arteries, sagittal and coronal sliding thin slab reformations of each carotid artery, and left oblique sliding thin slab reformatio n through the aortic arch to include the origin of the arch branch vessels. FINDINGS: AORTIC ARCH: There is a three vessel origin of the great vessels from the aorta. No evidence of ostial narrowing. RIGHT CAROTID: The common carotid artery is intact. The carotid bulb has a normal configuration without ulceration or narrowing. The internal carotid artery lumen is smooth without stenosis. The external carotid ar ekta is intact. LEFT CAROTID: The common carotid artery is intact. The carotid bulb has a normal configuration without ulceration or narrowing. The internal carotid artery lumen is smooth without stenosis. The external carotid ar ekta is intact. VERTEBRALS: The vertebral arteries have a symmetric diameter. No stenotic lesions are seen. Intracranial circulation: The apparent stenosis identified in the distal left vertebral artery on nonenhanced MRA is artifactua l. Contrast enhanced evaluation of the carotids demonstrates normal caliber in this area without evid ence of stenosis. The proximal intracranial cerebral vessels are also better visualized. Carotid siph ons and proximal middle cerebral arteries are well visualized and fail reveal any significant stenosi s. CONCLUSION: 1. No evidence of significant stenosis in the extracranial carotid and vertebral arteries. 2. Improved visualization of the intracranial vessels following administration of contrast compared t o nonenhanced MRA. There is no evidence of distal left vertebral artery stenosis or focal areas of mi aw-fl-ulxtbept narrowing in the proximal MCAs. Carlin Walters MD on September 01, 2017 at 13:37 Board Certified Radiologist. This report was verified electronically.
[2017-09-01] MEDS: AMPICILLIN INJ 1,000 MG in SODIUM CHLORIDE 0.9% INJ 100 ML IV SCH ×2 (15:35→21:40)
[2017-09-01 16:57] LABS: MAGNESIUM 1.7 MG/DL (1.5-2.5); PHOSPHORUS 3.8 MG/DL (2.5-4.9)
[2017-09-01] MEDS: SODIUM CHLORIDE 0.9% IV SCH (17:00)
[2017-09-01] MEDS: ACYCLOVIR IV SCH (17:00)
[2017-09-01 17:22] LABS: C-REACTIVE PROTEIN 0.49 MG/DL (0.00-0.30)
[2017-09-01] MEDS ORDERED: VANCOMYCIN INJ 850 MG in SODIUM CHLOR 0.9% 250 ML INJ 250 ML IV SCH ×2 (18:00→22:00)
--- NOTE | 2017-09-01 19:15 | PD.RAD ---
Post Procedure Progress Note Pre Procedure Diagnosis: (1) Altered mental status Post Procedure Diagnosis: (1) Altered mental status Procedure Date: Sep 01, 2017 Supervising Radiologist: Gordon Rodriguez JR Proceduralist/Assist: Corrina Ramírez, RT(R)(CV), May Ding RT(R)() Anesthesia: Local Plan of Activity Patient to Unit: Nursing Unit Patient Condition: Good See PACS Report for procedural detail/treatment Spinal Procedure Lumbar Puncture L3-L4 Fluid Removal (CCs): 11 Fluid Description: Clear Puncture Time: 19:10 Findings: Clear CSF. Opening pressures not requested. Sample to lab. Jr. Michael,Gordon Alfredo MD Sep 01, 2017 19:15
[2017-09-01 19:59] LABS: TOTAL PROTEIN,CSF 42.3 MG/DL (15.0-45.0)
[2017-09-01 20:07] LABS: RBC TUBE #1 0 /MM3; RBC TUBE #4 0 /MM3; SUPERNATE COLOR TUBE #1 CLEAR (CLEAR); WBC TUBE #1 0 /MM3 (0-10); WBC TUBE #4 3 /MM3 (0-10)
[2017-09-01] MEDS: levETIRAcetam INJ 100 ML IV SCH (20:56)
[2017-09-01 21:06] LABS: CSF LYMPHOCYTES 40 %; CSF MONOCYTES 50 %; CSF NEUTROPHILS 10 %
--- NOTE | 2017-09-01 22:42 | MB ---
cc: Brock Laughlin MD, David J MD DATE OF CONSULT: 09/01/2017 A 76-year-old right-handed woman with a history of hypertension, hypercholesterolemia, rheumatoid arthritis. Otherwise, she has been fairly healthy. She is a heavy smoker. She has done fine. Her daughter sees her once a week, usually on Saturdays, and calls her every night. On night, she complained of a little bit of headache, went to bed. She was talking fine at that time, said she was going to go to bed early. Then Sunday night, her son talked to her and she was confused and her daughter went over and she was found to have thrown up on herself sitting on the sofa and was confused, was not making any sense. She came into the hospital. 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 A CT was negative. A chest x-ray revealed possibly right mass in the hilar region. MRI of the brain showed some white matter changes bilaterally but no acute infarct and that was just done. She has not returned to normal on her functioning, however. The MRI of the brain was done with and without contrast. No enhancing was noted. REVIEW OF SYSTEMS: According to her daughter, no diabetes, [place], CABG, stent, angioplasty, A-fib or Coumadin. She does take an aspirin a day. She is not sure what dose, but she is not on any heavy blood thinners or Plavix. She denies any history of renal, hepatic or major pulmonary disease, thyroid disease, lupus, ulcer, cancer, seizure or stroke. SOCIAL HISTORY: She is a smoker, not a drinker. She lives alone in [place]. FAMILY HISTORY: Negative for cancer, seizure or stroke. MEDICATIONS: Hydrochlorothiazide, aspirin 81, naproxen, metoprolol, omeprazole, meclizine, diphenhydramine, losartan, promethazine, prednisone 2.5 a day, Lasix. PHYSICAL EXAMINATION: VITAL SIGNS: Blood pressure initially was 162/75 to 145/91, afebrile, sinus rhythm 88. NECK: There were no carotid bruits. HEART: Regular rhythm. I did not detect a murmur. NEUROLOGIC: She does not count fingers for me. She has a word salad type speech. Sometimes she will say "I am doing it" when I ask her to stick out her tongue but she is not. She will not follow any commands. She moves all four of her extremities well. The toes appear to be downgoing. There is no ankle clonus. Her face has just a hint of droopiness on the right side. She likes to sit with her eyes closed but will open them up. LABORATORY DATA: Her CBC is normal. UA - large amount of leuko esterase, white blood cell clumps. Coags were normal. Basic metabolic profile - GFR is normal, glucose 139. Hemoglobin A1c is normal. Calcium is normal. LFTs are normal. Troponin is negative. LDL is 116. IMAGING STUDIES: As noted. She has not been running any fevers here. IMPRESSION: Acute change in mental status. MRI is negative for any stroke. She had some mild white matter changes, a little bit more on the right than the left. Possibilities would be complex partial seizure or encephalitis could also be considered. We are going to start her on some acyclovir. I note she has taken some aspirin. I did describe to her daughter the risk of bleeding in the back from an lumbar puncture, but I think she should have a lumbar puncture with the change in mental status without obvious etiology. We will check a stat EEG and do a lumbar puncture. Another possibility would be I suppose a urinary tract infection, but she looks much worse than usual on encephalopathy from urinary tract infection. I will check some additional blood work on her including ABG and an ammonia level. We will start her on some acyclovir and other antibiotics at this time. MD DAVID Moreno//pipe , 02:12 PM , 09:57 PM
--- NOTE | 2017-09-01 23:59 | EKG ---
Date Performed: 08/31/2017 Time Performed: 22:46:51 PTAGE: 76 years EKG: Sinus rhythm SEPTAL MYOCARDIAL INFARCTION MODERATE T-WAVE ABNORMALITY, CONSIDER LATERAL ISCHEMIA VS LVH ABNORMAL ECG PREVIOUS TRACING : 09/14/1998 08.10 Compared to prior tracing, lateral ST/T wave changes now n oted DOCTOR: Selvin Cope Interpretating Date/Time 09/01/2017 23:59:16
[2017-09-02] VITALS (8 sets, daily range): BP systolic 123–135; BP diastolic 64–68; PULSE 68–86; RESP 12–18; TEMP 97–98.7; O2SAT 91–99
--- NOTE | 2017-09-02 00:36 | MG ---
cc: Brock Laughlin MD [phone] Change in mental status. Apparently aphasia. Antibiotics. A lot of movement artifact seen at the beginning of the recording. Appears to be some increased alpha rhythms at the right posterior temporal head region to start the recording. There is definitely asymmetry between the left hemisphere and the right hemisphere, higher amplitudes on the right than the left. Some small sharp appearing waves are seen in the alpha range at times on the right side in the temporoparietal region but no definite seizure, no prolonged seizure activity is noted. ____ proximity 3 would be one example and 74 and asymmetry also ____ 83. Photic stimulation is performed without significant posterior driving. IMPRESSION: There does appear to be an asymmetry to the background, some sharp appearing waves are seen over the right posterior temporoparietal region. No PLEDs are noted. Slight attenuation of left hemisphere could also be considered. Clinical correlation is needed. MD MILA MorenoM/rt , 06:00 PM , 12:35 AM
[2017-09-02] MEDS: AMPICILLIN INJ 1,000 MG in SODIUM CHLORIDE 0.9% INJ 100 ML IV SCH ×3 (01:10→07:39)
[2017-09-02] MEDS: ACYCLOVIR IV SCH ×3 (03:11→17:31)
[2017-09-02] MEDS: SODIUM CHLORIDE 0.9% IV SCH ×3 (03:11→17:31)
[2017-09-02] MEDS: SODIUM CHLORIDE 0.9% FLUSH 10 ML FLUSH IV FLUSH SCH ×2 (07:39→21:00)
[2017-09-02] MEDS: INSULIN ASPART SUPPLEMENTAL SCALE SQ SCH ×4 (07:44→21:00)
[2017-09-02] MEDS: METOPROLOL TARTRATE 100 MG TAB PO SCH ×2 (07:45→21:53)
[2017-09-02] MEDS: predniSONE 5 MG TAB PO SCH (07:45)
[2017-09-02] MEDS: LOSARTAN 50 MG TAB PO SCH (07:45)
[2017-09-02] MEDS: HYDROCHLOROTHIAZIDE 12.5 MG CAP PO SCH (07:46)
[2017-09-02] MEDS: PRAVASTATIN SOD 20 MG TAB PO SCH (07:46)
[2017-09-02] MEDS: POTASSIUM CHLORIDE 25 MEQ EFFERVESCENT TAB PO SCH (07:46)
[2017-09-02] MEDS: FUROSEMIDE 40 MG TAB PO SCH (07:46)
[2017-09-02] MEDS: PANTOPRAZOLE SOD 20 MG DELAYED RELEASE TAB PO SCH (07:46)
[2017-09-02] MEDS: levETIRAcetam INJ 100 ML IV SCH ×2 (08:01→21:48)
[2017-09-02 08:40] LABS: AUTOMATED NEUTROPHIL # 4.5 TH/MM3 (1.8-7.7); BASOPHIL % 0.5 % (0.0-2.0); EOSINOPHIL # 0.1 TH/MM3 (0-0.4); EOSINOPHIL % 1.5 % (0.0-4.0); HEMATOCRIT 37.9 % (35.0-46.0); HEMOGLOBIN 12.9 GM/DL (11.6-15.3); LYMPH % 23.6 % (9.0-44.0); LYMPHOCYTE # 1.7 TH/MM3 (1.0-4.8); MEAN CELL VOLUME 90.3 FL (80.0-100.0); MEAN CORPUSCULAR HEMOGLOBIN 30.8 PG (27.0-34.0); MEAN CORPUSCULAR HGB CONC 34.1 % (32.0-36.0); MEAN PLATELET VOLUME 7.1 FL (7.0-11.0); MONO % 11.3 % (0.0-8.0); MONOCYTE # 0.8 TH/MM3 (0-0.9); NEUT % 63.1 % (16.0-70.0); PLATELET COUNT 245 TH/MM3 (150-450); RED CELL DISTRIBUTION WIDTH 13.8 % (11.6-17.2); WHITE BLOOD COUNT 7.2 TH/MM3 (4.0-11.0)
[2017-09-02] MEDS: cefTRIAXone INJ 1,000 MG in SODIUM CHLORIDE 0.9% INJ 100 ML IV SCH (08:49)
[2017-09-02] MEDS ORDERED: POTASSIUM CHLORIDE 25 MEQ EFFERVESCENT TAB PO SCH (09:00)
[2017-09-02 09:26] LABS: ALBUMIN 3.2 GM/DL (3.4-5.0); ALT (GPT) 15 U/L (10-53); AST (GOT) 16 U/L (15-37); BICARBONATE 28.7 MEQ/L (21.0-32.0); BLOOD UREA NITROGEN 16 MG/DL (7-18); CALCIUM 8.4 MG/DL (8.5-10.1); CHLORIDE 105 MEQ/L (98-107); GLOMERULAR FILTRATION RATE 54 ML/MIN (>89); GLUCOSE,RANDOM 84 MG/DL (74-106); MAGNESIUM 1.8 MG/DL (1.5-2.5); SODIUM (NA) 143 MEQ/L (136-145)
[2017-09-02] MEDS ORDERED: Vancomycin Consult Pharmacy 1 EA OTHER SCH (09:45)
[2017-09-02] MEDS ORDERED: VANCOMYCIN INJ 1,000 MG in SODIUM CHLOR 0.9% 250 ML INJ 250 ML IV ONE (09:45)
--- NOTE | 2017-09-02 09:57 | HHI.PR ---
Subjective Remarks much better this am confused last pm Objective Vital Signs Date Time Temp Pulse Resp B/P (MAP) Pulse Ox O2 Delivery O2 Flow Rate FiO2 09/02/17 08:39 71 09/02/17 07:30 97.6 68 12 123/64 (83) 98 09/02/17 03:00 97.0 72 18 125/68 (87) 99 09/01/17 21:25 100 Nasal Cannula 2.00 09/01/17 21:02 99.5 82 14 121/85 (97) 100 09/01/17 20:03 99.1 75 16 142/79 (100) 09/01/17 16:00 99.3 78 17 134/66 (88) 93 09/01/17 12:00 97.2 88 17 145/91 (109) 93 I/O 09/01/17 09/01/17 09/01/17 09/02/17 09/02/17 09/02/17 07:00 15:00 23:00 07:00 15:00 23:00 Intake Total 100 ml 420 ml 300 ml Balance 100 ml 420 ml 300 ml Intake Oral 0 ml 420 ml IV Total 100 ml 300 ml # Voids 1 5 2 3 # Bowel Movements 0 0 2 Result Diagram: 09/02/17 0732 09/02/17 0732 Objective Remarks awake alert face sym moves all follows commands well slurred speech but not aphasic knows db not month Assessment and Plan Assessment and Plan imp LP neg eeg some mild r changes +/- sharps on keppra blood and urine cx pos plan cont acyclovir until pcr back i dw med team watch renal fx daily on that ivf keppra change to po when taking better hold sedatives recheck mri make sure no small cva missed first time sepsis vanco much better Brock Laughlin MD Sep 02, 2017 09:57
[2017-09-02 10:15] LABS: PHOSPHORUS 4.2 MG/DL (2.5-4.9); TOTAL PROTEIN 6.6 GM/DL (6.4-8.2)
[2017-09-02 10:16] LABS: ALKALINE PHOSPHATASE 38 U/L (45-117); FREE T4 1.34 NG/DL (0.76-1.46); TOTAL BILIRUBIN ADULT 0.9 MG/DL (0.2-1.0)
--- NOTE | 2017-09-02 10:26 | HHI.PR ---
Subjective Remarks This is a 76-year-old female with a PMH of HTN, Hyperlipidemia, COPD and Tobacco Abuse who is brought to the ER by EMS secondary to AMS, Stroke Alert initiated in field prior to arrival. Pt unable to provide any history as she is aphasic, not following commands. Per Daughter, pt is AA&Ox4 at baseline, ambulates without difficulty. Today pt noted to be confused, not making sense, slurring speech at approx 3:30pm. On arrival, BP 142/67, HR 77, O2 sat 97% on 2L NC, Afebrile. CBC unremarkable. Chemistry unremarkable with the. GFR 59. Troponin negative. INR 1.2. CXR with no focal infiltrates, 1.8 cm opacity right perihilar region, cannot exclude mass. CT Head negative. 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 CTA Neck negative. S/p Zosyn in ER. 3 patient remains totally aphasic Not able to follow any commands. Past swallow eval with pured diet and thickened liquids We will resume her home medications Continue on aspirin and statin Await neurological evaluation Physical therapy, occupational therapy, and speech therapy evaluations 09-02 POSITIVE CULTURES PENDING SENSITIVITIES CONTINUE ROCEPHIN VANCOMYCIN AND ACYCLOVIR DW NEUROLOGY MOVED TO NEURO FLOOR MUCH MORE ALERT TODAY TALKATIVE- COOPERATIVE DW RN AND PT AND CM AM LABS Objective Vitals Vital Signs Date Time Temp Pulse Resp B/P (MAP) Pulse Ox O2 Delivery O2 Flow Rate FiO2 09/02/17 08:39 71 09/02/17 07:30 97.6 68 12 123/64 (83) 98 09/02/17 03:00 97.0 72 18 125/68 (87) 99 09/01/17 21:25 100 Nasal Cannula 2.00 09/01/17 21:02 99.5 82 14 121/85 (97) 100 09/01/17 20:03 99.1 75 16 142/79 (100) 09/01/17 16:00 99.3 78 17 134/66 (88) 93 09/01/17 12:00 97.2 88 17 145/91 (109) 93 I/O 09/01/17 09/01/17 09/01/17 09/02/17 09/02/17 09/02/17 07:00 15:00 23:00 07:00 15:00 23:00 Intake Total 100 ml 420 ml 300 ml Balance 100 ml 420 ml 300 ml Intake Oral 0 ml 420 ml IV Total 100 ml 300 ml # Voids 1 5 2 3 # Bowel Movements 0 0 2 Result Diagram: 09/02/17 0732 09/02/17 0732 Other Results Laboratory Tests Test 08/31/17 22:20 08/31/17 22:37 09/01/17 05:22 09/01/17 14:29 White Blood Count 9.3 TH/MM3 Red Blood Count 4.70 MIL/MM3 Hemoglobin 14.3 GM/DL Hematocrit 42.2 % Mean Corpuscular Volume 89.8 FL Mean Corpuscular Hemoglobin 30.5 PG Mean Corpuscular Hemoglobin Concent 33.9 % Red Cell Distribution Width 13.8 % Platelet Count 300 TH/MM3 Mean Platelet Volume 7.0 FL Neutrophils (%) (Auto) 75.8 % Lymphocytes (%) (Auto) 16.4 % Monocytes (%) (Auto) 6.0 % Eosinophils (%) (Auto) 1.4 % Basophils (%) (Auto) 0.4 % Neutrophils # (Auto) 7.1 TH/MM3 Lymphocytes # (Auto) 1.5 TH/MM3 Monocytes # (Auto) 0.6 TH/MM3 Eosinophils # (Auto) 0.1 TH/MM3 Basophils # (Auto) 0.0 TH/MM3 CBC Comment DIFF FINAL Differential Comment Prothrombin Time 12.2 SEC Prothromb Time International Ratio 1.2 RATIO Activated Partial Thromboplast Time 22.9 SEC Blood Urea Nitrogen 14 MG/DL Creatinine 0.93 MG/DL Random Glucose 139 MG/DL Total Protein 7.5 GM/DL Albumin 3.8 GM/DL Calcium Level 9.5 MG/DL Alkaline Phosphatase 44 U/L Aspartate Amino Transf (AST/SGOT) 20 U/L Alanine Aminotransferase (ALT/SGPT) 16 U/L Total Bilirubin 0.9 MG/DL Sodium Level 139 MEQ/L Potassium Level 3.3 MEQ/L Chloride Level 103 MEQ/L Carbon Dioxide Level 26.1 MEQ/L Anion Gap 10 MEQ/L Estimat Glomerular Filtration Rate 59 ML/MIN Troponin I LESS THAN 0.02 NG/ML Urine Color YELLOW Urine Turbidity HAZY Urine pH 6.5 Urine Specific [place] 1.017 Urine Protein 30 mg/dL Urine Glucose (UA) NEG mg/dL Urine Ketones NEG mg/dL Urine Occult Blood MOD Urine Nitrite NEG Urine Bilirubin NEG Urine Urobilinogen LESS THAN 2.0 MG/DL Urine Leukocyte Esterase LARGE Urine RBC 72 /hpf Urine WBC /hpf Urine WBC Clumps MOD Urine Squamous Epithelial Cells 2 /hpf Urine Bacteria OCC /hpf Urine Mucus FEW /lpf Urine Yeast (Budding) MANY Microscopic Urinalysis Comment CATH-CULTURE IND Hemoglobin A1c 5.1 % Phosphorus Level 3.8 MG/DL Magnesium Level 1.7 MG/DL C-Reactive Protein 0.49 MG/DL Triglycerides Level 148 MG/DL Cholesterol Level 207 MG/DL LDL Cholesterol 116 MG/DL HDL Cholesterol 61.0 MG/DL Cholesterol/HDL Ratio 3.39 RATIO Vitamin B12 Level 357 PG/ML Blood Gas Puncture Site LT BRACHIAL Blood Gas Patient Temperature 98.6 Blood Gas HCO3 26 mmol/L Blood Gas Base Excess 2.0 mmol/L Blood Gas Oxygen Saturation 85 % Arterial Blood pH 7.42 Arterial Blood Partial Pressure CO2 41 mmHg Arterial Blood Partial Pressure O2 53 mmHg Arterial Blood Oxygen Content 15.6 Vol % Arterial Blood Carboxyhemoglobin 1.3 % Arterial Blood Methemoglobin 0.8 % Blood Gas Hemoglobin 13.1 G/DL Oxygen Delivery Device ROOM AIR Blood Gas Inspired Oxygen 21 % Test 09/01/17 17:28 09/01/17 19:07 09/02/17 07:32 Erythrocyte Sedimentation Rate 5 mm/hr Ammonia 16 MCMOL/L CSF Volume (Tube 1) 2.0 ML CSF Supernatant Color (tube 1) CLEAR CSF WBC (Tube 1) 0 /MM3 CSF RBC (Tube 1) 0 /MM3 CSF Volume (Tube 2) 2.5 ML CSF Supernatant Color (tube 2) CLEAR CSF Gross Blood (Tube 2) 0 CSF Volume (Tube 3) 2.0 ML CSF Supernatant Color (tube 3) CLEAR CSF Gross Blood (Tube 3) 0 CSF Volume (Tube 4) 3.2 ML CSF Supernatant Color (tube 4) CLEAR CSF WBC (Tube 4) 3 /MM3 CSF RBC (Tube 4) 0 /MM3 CSF Neutrophils % CSF Lymphocytes % CSF Monocytes 50 % CSF Glucose 60 MG/DL CSF Total Protein 42.3 MG/DL White Blood Count 7.2 TH/MM3 Red Blood Count 4.20 MIL/MM3 Hemoglobin 12.9 GM/DL Hematocrit 37.9 % Mean Corpuscular Volume 90.3 FL Mean Corpuscular Hemoglobin 30.8 PG Mean Corpuscular Hemoglobin Concent 34.1 % Red Cell Distribution Width 13.8 % Platelet Count 245 TH/MM3 Mean Platelet Volume 7.1 FL Neutrophils (%) (Auto) 63.1 % Lymphocytes (%) (Auto) 23.6 % Monocytes (%) (Auto) 11.3 % Eosinophils (%) (Auto) 1.5 % Basophils (%) (Auto) 0.5 % Neutrophils # (Auto) 4.5 TH/MM3 Lymphocytes # (Auto) 1.7 TH/MM3 Monocytes # (Auto) 0.8 TH/MM3 Eosinophils # (Auto) 0.1 TH/MM3 Basophils # (Auto) 0.0 TH/MM3 CBC Comment DIFF FINAL Differential Comment Blood Urea Nitrogen 16 MG/DL Creatinine 1.00 MG/DL Random Glucose 84 MG/DL Total Protein 6.6 GM/DL Albumin 3.2 GM/DL Calcium Level 8.4 MG/DL Phosphorus Level 4.2 MG/DL Magnesium Level 1.8 MG/DL Alkaline Phosphatase 38 U/L Aspartate Amino Transf (AST/SGOT) 16 U/L Alanine Aminotransferase (ALT/SGPT) 15 U/L Total Bilirubin 0.9 MG/DL Sodium Level 143 MEQ/L Potassium Level 3.3 MEQ/L Chloride Level 105 MEQ/L Carbon Dioxide Level 28.7 MEQ/L Anion Gap 9 MEQ/L Estimat Glomerular Filtration Rate 54 ML/MIN Free Thyroxine 1.34 NG/DL Thyroid Stimulating Hormone 3rd Gen 0.228 uIU/ML Imaging Last Impressions Neck Magnetic Resonance Angiography 09/01/17 Signed Impressions: Service Date/Time: Friday, September 01, 2017 12:09 - CONCLUSION: 1. No evidence of significant stenosis in the extracranial carotid and vertebral arteries. 2. Improved visualization of the intracranial vessels following administration of contrast compared to nonenhanced MRA. There is no evidence of distal left vertebral artery stenosis or focal areas of [id number] narrowing in the proximal MCAs. Carlin Walters MD Head Magnetic Resonance Angiography 09/01/17 Signed Impressions: Service Date/Time: Friday, September 01, 2017 12:09 - CONCLUSION: 1. Suboptimal visualization of the intracranial vessels do to motion artifact. 2. Irregularity is evident throughout the middle and posterior cerebral arteries. 3. Focal areas of diminished flow related enhancement which may represent focal stenoses however considering the amount of background motion these may be artifactual. Carlin Walters MD Chest CT 09/01/17 Signed Impressions: Service Date/Time: Friday, September 01, 2017 10:13 - CONCLUSION: 1. 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 2. No suspicious pulmonary mass or acute airspace disease. 3. Moderate cardiomegaly with calcific described disease of the coronary arteries. 4. Simple left renal cyst. 5. Significant bilateral shoulder arthropathy. Carlin Walters MD Brain MRI 09/01/17 Signed Impressions: Service Date/Time: Friday, September 01, 2017 12:09 - CONCLUSION: 1. Mild cerebral white matter disease characteristic of chronic microvascular ischemic changes. 2. No evidence of acute infarct, hemorrhage, mass or edema. 3. Empty sella appearance. 4. No evidence of enhancing intra-or extra-axial lesions. Carlin Walters MD Neck CTA [id number] Signed Impressions: Service Date/Time: Thursday, August 31, 2017 23:08 - CONCLUSION: Negative CTA of the carotids. Gordon Huerta MD Head CTA [id number] Signed Impressions: Service Date/Time: Thursday, August 31, 2017 23:08 - CONCLUSION: No evidence of vessel truncation. 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 Gordon Huerta MD Head CT [id number] Signed Impressions: Service Date/Time: Thursday, August 31, 2017 22:18 - CONCLUSION: 1. No acute findings in the brain. Gordon Huerta MD Chest X-Ray [id number] Signed Impressions: Service Date/Time: Thursday, August 31, 2017 22:24 - CONCLUSION: 1. No focal infiltrates seen. 2. 1.8 cm focal opacity right perihilar region of uncertain significance; cannot exclude a focal mass. Gordon Huerta MD Objective Remarks GENERAL: She is awake and alert ORIENTED X3 MUCH IMPROVED- TALKATIVE AND COOPERATIVE SKIN: Warm and dry. HEAD: Atraumatic. Normocephalic. EYES: Pupils equal and round. No scleral icterus. No injection or drainage. Extraocular muscles appear grossly intact ENT: No nasal bleeding or discharge. Mucous membranes pink and moist. Tongue is midline NECK: Trachea midline. No JVD. Supple CARDIOVASCULAR: Regular rate and rhythm. S1-S2 no S3 or S4 NO HEAVE OR THRILL OR RUB RESPIRATORY: No accessory muscle use. Clear to auscultation. Breath sounds equal bilaterally. GASTROINTESTINAL: Abdomen soft, non-tender, nondistended. Hepatic and splenic margins not palpable. MUSCULOSKELETAL: Extremities without clubbing, cyanosis, or edema. No obvious deformities. NEUROLOGICAL: Awake and alert. No obvious cranial nerve deficits. Motor grossly within normal limits. Five out of 5 muscle strength in the arms and legs. GOOD SPEECH PSYCHIATRIC: Appropriate mood and affect; insight and judgment ARE NORMAL- NO LONGER APHASIC-RESOLVED Procedures None Medications and IVs Current Medications Sodium Chloride (NS Flush) 2 ml UNSCH PRN IVF FLUSH AFTER USING IV ACCESS; Start 08/31/17 at 22:15; Stop 09/01/17 at 00:39; Status DC Ondansetron HCl (Zofran Inj) 4 mg STK-MED ONCE .ROUTE ; Start 08/31/17 at 22:27; Stop 08/31/17 at 22:28; Status DC Ondansetron HCl (Zofran Inj) 4 mg ONCE ONCE IV PUSH Last administered on at 22:51; Start 08/31/17 at 22:45; Stop 08/31/17 at 22:46; Status DC Aspirin (Aspirin) 325 mg ONCE ONCE PO Last administered on 08/31/17at 23:30; Start 08/31/17 at 23:00; Stop 09/01/17 at 14:02; Status DC Iohexol (Omnipaque 350 Inj) 75 ml STK-MED ONCE IVCONTRAST Last administered on 08/31/17at 23:29; Start 08/31/17 at 23:29; Stop 08/31/17 at 23:30; Status DC Piperacillin Sod/ Tazobactam Sod 100 ml @ 200 mls/hr ONCE ONCE IV Last administered on 09/01/17at 00:23; Start 08/31/17 at 23:45; Stop 09/01/17 at 00:14 ; Status DC Sodium Chloride (NS Flush) 2 ml BID IV FLUSH Last administered on 09/02/17at 07: 39; Start 09/01/17 at 09:00 Sodium Chloride (NS Flush) 2 ml UNSCH PRN IV FLUSH FLUSH AFTER USING IV ACCESS ; Start 09/01/17 at 00:30 Enalaprilat (Vasotec Inj) 1.25 mg Q4H PRN IV PUSH For SBP > 220 or DBP > 120; Start 09/01/17 at 00:30 Aspirin (Aspirin Supp) 300 mg DAILY RECTAL Last administered on 09/01/17at 07:44 ; Start 09/01/17 at 09:00; Stop 09/01/17 at 14:02; Status DC Insulin Aspart (NovoLOG SUPPLEMENTAL SCALE) 1 ACHS SQ ; Start 09/01/17 at 08:00 Dextrose (D50w (Vial) Inj) 50 ml UNSCH PRN IV PUSH HYPOGLYCEMIA-SEE COMMENTS; Start 09/01/17 at 00:30 Glucagon (Glucagon Inj) 1 mg UNSCH PRN OTHER HYPOGLYCEMIA-SEE COMMENTS; Start 09/01/17 at 00:30 Ondansetron HCl (Zofran Inj) 4 mg Q6HR PRN IV PUSH NAUSEA OR VOMITING Last administered on 09/01/17at 04:07; Start 09/01/17 at 04:00 Aspirin (Aspirin Chew) 81 mg DAILY CHEW ; Start 09/01/17 at 09:00; Stop at 09:11; Status DC Furosemide (Lasix) 40 mg DAILY PO Last administered on 09/02/17at 07:46; Start 09/01/17 at 09:00 Hydrochlorothiazide (Microzide) 12.5 mg DAILY PO Last administered on at 07:46; Start 09/01/17 at 09:00 Losartan Potassium (Cozaar) 100 mg DAILY PO Last administered on 09/02/17at 07: 45; Start 09/01/17 at 09:00 Pravastatin Sodium (Pravachol) 20 mg DAILY PO Last administered on 09/02/17at 07 :46; Start 09/01/17 at 09:00 Meclizine HCl (Antivert) 12.5 mg Q8H PRN PO VERTIGO; Start 09/01/17 at 09:00; Stop 09/01/17 at 14:02; Status DC Metoprolol Tartrate (Lopressor) 100 mg BID PO Last administered on 09/02/17at 07 :45; Start 09/01/17 at 09:00 Pantoprazole Sodium (Protonix) 20 mg DAILY PO Last administered on 09/02/17at 07 :46; Start 09/01/17 at 09:00 Prednisone (Deltasone) 2.5 mg DAILY PO Last administered on 09/02/17at 07:45; Start 09/01/17 at 09:00 Aspirin (Aspirin) 325 mg DAILY PO ; Start 09/01/17 at 09:15; Stop 09/01/17 at 14 :02; Status DC Ceftriaxone Sodium 1000 mg/ Sodium Chloride 100 ml @ 200 mls/hr Q24H IV Last administered on 09/02/17at 08:49; Start 09/01/17 at 09:00 Potassium Bicarb/ Potassium Chloride (K-Lyte Cl Eff) 50 meq ONCE ONCE PO ; Start 09/01/17 at 09:15; Stop 09/01/17 at 09:46; Status DC Potassium Bicarb/ Potassium Chloride (K-Lyte Cl Eff) 25 meq DAILY PO Last administered on 09/02/17at 07:46; Start 09/02/17 at 09:00 Potassium Bicarb/ Potassium Chloride (K-Lyte Cl Eff) 50 meq ONCE ONCE PO ; Start 09/01/17 at 09:15; Stop 09/01/17 at 09:16; Status UNV Potassium Bicarb/ Potassium Chloride (K-Lyte Cl Eff) 25 meq DAILY PO ; Start at 09:00; Status UNV Iohexol (Omnipaque 350 Inj) 65 ml STK-MED ONCE IVCONTRAST Last administered on 09/01/17at 10:32; Start 09/01/17 at 10:32; Stop 09/01/17 at 10:33; Status DC Lorazepam (Ativan Inj) 1 mg ONCE ONCE IV PUSH Last administered on 09/01/17at 11:51; Start 09/01/17 at 11:00; Stop 09/02/17 at 09:55; Status DC Gadodiamide (Omniscan Pf Inj) 20 ml STK-MED ONCE IVCONTRAST Last administered on 09/01/17at 12:36; Start 09/01/17 at 12:36; Stop 09/01/17 at 12:37; Status DC Acyclovir Sodium 568 mg/Sodium Chloride 100 ml @ 100 mls/hr Q8H IV Last administered on 09/02/17at 09:17; Start 09/01/17 at 17:00 Ampicillin Sodium 1000 mg/Sodium Chloride 100 ml @ 400 mls/hr Q4H IV Last administered on 09/02/17at 07:39; Start 09/01/17 at 16:00; Stop 09/02/17 at 08:22 ; Status DC Vancomycin HCl 850 mg/Sodium Chloride 258.5 ml @ 250 mls/hr Q12H IV ; Start 04/11 at 18:00; Stop 09/01/17 at 22:08; Status DC Levetriacetam 100 ml @ 400 mls/hr Q12HR IV Last administered on 09/02/17at 08: 01; Start 09/01/17 at 21:00 Vancomycin HCl 850 mg/Sodium Chloride 258.5 ml @ 250 mls/hr Q12H IV Last administered on 09/02/17at 00:04; Start 09/01/17 at 22:00; Stop 09/02/17 at 08:22 ; Status DC Vancomycin HCl 1000 mg/Sodium Chloride 250 ml @ 250 mls/hr ONCE ONCE IV ; Start 09/02/17 at 09:45; Stop 09/02/17 at 10:44; Status UNV Pharmacy Profile Note 0 ml @ 0 mls/hr UNSCH OTHER ; Start 09/02/17 at 09:45; Status UNV A/P Problem List: (1) Encephalopathy ICD Code: G93.40 - Encephalopathy, unspecified (2) CVA (cerebral vascular accident) ICD Code: I63.9 - Cerebral infarction, unspecified (3) UTI (urinary tract infection) ICD Code: N39.0 - Urinary tract infection, site not specified (4) Hypertension ICD Code: I10 - Essential (primary) hypertension (5) Hyperlipidemia ICD Code: E78.5 - Hyperlipidemia, unspecified (6) GERD (gastroesophageal reflux disease) ICD Code: K21.9 - Gastro-esophageal reflux disease without esophagitis (7) Vertigo ICD Code: R42 - Dizziness and giddiness (8) Hypokalemia ICD Code: E87.6 - Hypokalemia Assessment and Plan 1. Encephalopathy: MUCH IMPROVED acute episode of AMS noted by family, previously AA&Ox4 at baseline per Daughter. Neuro Checks. CT Head w/ no acute findings, images reviewed by me. Possibly compounded by UTI, continue w/ IV Rocephin. 2. CVA RULED OUT slurred speech/confusion noted at 3:30pm, outside T[facility] window , previously aphasic, now able to say "yes". FOLLOWING COMMANDS NOW. CTA Head w / no truncation, 3mm calcified aneurysm right ICA, CTA Neck negative, images reviewed by me. IVF, PT/Speech Consult for eval/tx. Consult Neurology for further evaluation. MUCH IMPROVED FROM YESTERDAY AWAKE AND ALERT- JOKING AROUND 3. UTI: U/a w/ UTI, follow up cultures, continue w/ IV Abx, IVF. ROCEPHIN AND VANCO- HYPOKALEMIA WILL REPLACE Hypertension resume home medications Hyperlipidemia resume all medications AM LABS PT, OT, and ST 4. DVT Prophylaxis: SCD/Teds AWAIT SENSITIVITIES ON CULTURES ON VANCO, ROCEPHIN AND ACYCLOVIR 5. Social work for d/c planning as needed. Discharge Planning Pending neurological clearance May need to go to SNF at discharge Aleksander Smith DO Sep 02, 2017 10:26
[2017-09-02] MEDS: VANCOMYCIN 1,000 MG/NS 250 ML IV SCH ×2 (12:14)
[2017-09-02] MEDS ORDERED: MAGNESIUM HYDROXIDE SUSP 30 ML CUP PO PRN (12:15)
--- NOTE | 2017-09-02 13:29 | RADRPT ---
EXAM DATE/TIME: 09/02/2017 12:49 [facility] COMPARISON: MRI BRAIN W & W/O CONTRAST, September 01, 2017, 12:09. INDICATIONS : Aphasia. MEDICAL HISTORY : Hypertension. Hypercholesterolemia. SURGICAL HISTORY : Tonsillectomy. Hysterectomy. ENCOUNTER: Subsequent ACUITY: 2 day PAIN SCORE: 0/10 LOCATION: cranial TECHNIQUE: Multiplanar, multisequence MRI of the brain was performed without contrast. FINDINGS: Significant interval change has developed since the prior study. T2 hyperintense fluid is now identif ied in the subarachnoid space throughout the parietal and occipital lobes. Focal hyperintensity is al so identified within the occipital horns. Diffusion weighted imaging remains unremarkable without evidence of acute infarct. There is no eviden ce of parenchymal hemorrhage, edema or mass effect. CONCLUSION: 1. Interval development of T2 hyperintense fluid in the subarachnoid space in the parietal and occipi cody lobes which may represent either subarachnoid blood or proteinaceous exudate. 2. No evidence of acute infarct or parenchymal hemorrhage. 3. No evidence of developing intra-axial edema. Carlin Walters MD on September 02, 2017 at 13:09 Board Certified Radiologist. This report was verified electronically.
[2017-09-02] MEDS: DOCUSATE SODIUM 50 MG/SENNA 8.6 MG TAB PO SCH (21:53)
[2017-09-02] MEDS ORDERED: ACETAMINOPHEN 325 MG TAB PO PRN (23:00)
--- NOTE | 2017-09-02 23:02 | RADRPT ---
EXAM DATE/TIME: 09/01/2017 19:14 [facility] COMPARISON: No previous studies available for comparison. INDICATIONS : Patient with altered mental status in need of lumbar puncture. MEDICAL HISTORY : 1.AMS 2.UTI 3.TIA 4.HTN 5.COPD 6.Hyperlipidemia SURGICAL HISTORY : 1.Appendectomy 2.Hysterectomy ENCOUNTER: Initial ACUITY: 1 day PAIN SCORE: Nonresponsive. LUMBAR PUNCTURE TIME: 1907 hours FLUORO TIME: 0.7 minutes IMAGE SERIES: 1 ACCESS LEVEL: L3-4 FLUID: 11 cc of clear CSF was collected and sent to the laboratory for analysis. PROCEDURE : 1. Fluoroscopic guided lumbar puncture. The risks, benefits and alternatives to the procedure were explained and verbal and written consent w as obtained from the patient's family. It was discussed with the family of the additional risks of bl eeding due to the patient's aspirin utilization. The site was prepped in sterile fashion. Full ster ile technique was used, including cap, mask, sterile gloves and gown and a large sterile sheet. Hand hygiene and 2% chlorhexidine and/or betadine/alcohol prep was utilized per protocol for cutaneous an tisepsis. The skin and subcutaneous tissues were infiltrated with local anesthetic solution. With fluoroscopic guidance the lumbar thecal sac was punctured at the level above. The fluid describ ed above was removed without difficulty. The patient tolerated the procedure well and there were no complications. CONCLUSION: Uncomplicated fluoroscopically guided lumbar puncture. Gorodn Rodriguez Jr., MD on September 02, 2017 at 23:00 Board Certified Radiologist. This report was verified electronically.
[2017-09-03] VITALS (12 sets, daily range): BP systolic 124–155; BP diastolic 67–87; PULSE 72–94; RESP 16–22; TEMP 97.3–98.8; O2SAT 94–98
[2017-09-03] MEDS: ACYCLOVIR IV SCH ×4 (00:28→23:51)
[2017-09-03] MEDS: SODIUM CHLORIDE 0.9% IV SCH ×4 (00:28→23:51)
[2017-09-03 07:10] LABS: AUTOMATED NEUTROPHIL # 4.8 TH/MM3 (1.8-7.7); BASOPHIL # 0.1 TH/MM3 (0-0.2); BASOPHIL % 0.8 % (0.0-2.0); EOSINOPHIL # 0.3 TH/MM3 (0-0.4); EOSINOPHIL % 4.1 % (0.0-4.0); HEMATOCRIT 38.3 % (35.0-46.0); HEMOGLOBIN 13.1 GM/DL (11.6-15.3); LYMPH % 21.4 % (9.0-44.0); LYMPHOCYTE # 1.6 TH/MM3 (1.0-4.8); MEAN CELL VOLUME 90.9 FL (80.0-100.0); MEAN CORPUSCULAR HGB CONC 34.1 % (32.0-36.0); MONO % 9.8 % (0.0-8.0); MONOCYTE # 0.7 TH/MM3 (0-0.9); NEUT % 63.9 % (16.0-70.0); PLATELET COUNT 243 TH/MM3 (150-450); RED BLOOD COUNT 4.21 MIL/MM3 (4.00-5.30); RED CELL DISTRIBUTION WIDTH 13.5 % (11.6-17.2); WHITE BLOOD COUNT 7.5 TH/MM3 (4.0-11.0)
--- NOTE | 2017-09-03 07:20 | HHI.PR ---
Subjective Remarks ruelas mils overnoc Objective Vital Signs Date Time Temp Pulse Resp B/P (MAP) Pulse Ox O2 Delivery O2 Flow Rate FiO2 09/03/17 06:00 73 09/03/17 04:00 97.3 73 18 145/73 (97) 95 09/03/17 00:00 97.3 94 18 124/87 (99) 97 09/02/17 22:18 94 Nasal Cannula 2.00 09/02/17 20:00 98.7 86 18 135/68 (90) 91 09/02/17 17:13 74 09/02/17 16:00 97.6 73 16 131/66 (87) 93 09/02/17 12:00 71 09/02/17 12:00 98.5 72 16 128/66 (86) 95 09/02/17 08:39 71 09/02/17 07:30 97.6 68 12 123/64 (83) 98 I/O 09/02/17 09/02/17 09/02/17 09/03/17 09/03/17 09/03/17 07:00 15:00 23:00 07:00 15:00 23:00 Intake Total 300 ml Balance 300 ml IV Total 300 ml # Voids 3 2 # Bowel Movements 2 Result Diagram: 09/03/17 0610 09/02/17 0732 Objective Remarks awake alert face sym moves all follows commands well speech clear now knows db not month or yr know [facility] no ruelas nad moves all well Assessment and Plan Assessment and Plan imp LP neg eeg some mild r changes +/- sharps on keppra blood and urine cx pos plan cont acyclovir until pcr back i dw med team watch renal fx daily on that ivf keppra change to po when taking better hold sedatives recheck mri make sure no small cva missed first time sepsis vanco much better 09/03/17 really looks well some stm off the mri repeat yest no cva but some posterior bilat extra axial fluid unclear what that is with nl LP plan is to repeat mri tomorrow and see if cleared but clinically not apparent may have some mild dementia Brock Stout MD Sep 03, 2017 07:20
[2017-09-03 07:38] LABS: ALBUMIN 3.3 GM/DL (3.4-5.0); ALKALINE PHOSPHATASE 39 U/L (45-117); ALT (GPT) 16 U/L (10-53); AST (GOT) 18 U/L (15-37); BICARBONATE 28.1 MEQ/L (21.0-32.0); BLOOD UREA NITROGEN 18 MG/DL (7-18); CALCIUM 9.8 MG/DL (8.5-10.1); CHLORIDE 106 MEQ/L (98-107); CREATININE 1.01 MG/DL (0.50-1.00); GLOMERULAR FILTRATION RATE 54 ML/MIN (>89); GLUCOSE,RANDOM 86 MG/DL (74-106); MAGNESIUM 1.8 MG/DL (1.5-2.5); PHOSPHORUS 3.7 MG/DL (2.5-4.9); SODIUM (NA) 144 MEQ/L (136-145); TOTAL BILIRUBIN ADULT 0.8 MG/DL (0.2-1.0); TOTAL PROTEIN 6.7 GM/DL (6.4-8.2)
[2017-09-03] MEDS: INSULIN ASPART SUPPLEMENTAL SCALE SQ SCH ×2 (07:52→11:22)
[2017-09-03] MEDS: SODIUM CHLORIDE 0.9% FLUSH 10 ML FLUSH IV FLUSH SCH ×2 (07:54→21:01)
[2017-09-03] MEDS: levETIRAcetam INJ 100 ML IV SCH ×2 (07:54→21:00)
[2017-09-03] MEDS: predniSONE 5 MG TAB PO SCH (07:59)
[2017-09-03] MEDS: POTASSIUM CHLORIDE 25 MEQ EFFERVESCENT TAB PO SCH (07:59)
[2017-09-03] MEDS: DOCUSATE SODIUM 50 MG/SENNA 8.6 MG TAB PO SCH ×2 (08:00→21:01)
[2017-09-03] MEDS: PRAVASTATIN SOD 20 MG TAB PO SCH (08:00)
[2017-09-03] MEDS: HYDROCHLOROTHIAZIDE 12.5 MG CAP PO SCH (08:00)
[2017-09-03] MEDS: FUROSEMIDE 40 MG TAB PO SCH (08:01)
[2017-09-03] MEDS: METOPROLOL TARTRATE 100 MG TAB PO SCH ×2 (08:01→21:00)
[2017-09-03] MEDS: PANTOPRAZOLE SOD 20 MG DELAYED RELEASE TAB PO SCH (08:01)
[2017-09-03] MEDS: LOSARTAN 50 MG TAB PO SCH (08:01)
[2017-09-03] MEDS: cefTRIAXone INJ 1,000 MG in SODIUM CHLORIDE 0.9% INJ 100 ML IV SCH (08:39)
[2017-09-03] MEDS: VANCOMYCIN 1,000 MG/NS 250 ML IV SCH ×2 (11:40)
--- NOTE | 2017-09-03 12:36 | HHI.PR ---
Subjective Remarks This is a 76-year-old female with a PMH of HTN, Hyperlipidemia, COPD and Tobacco Abuse who is brought to the ER by EMS secondary to AMS, Stroke Alert initiated in field prior to arrival. Pt unable to provide any history as she is aphasic, not following commands. Per Daughter, pt is AA&Ox4 at baseline, ambulates without difficulty. Today pt noted to be confused, not making sense, slurring speech at approx 3:30pm. On arrival, BP 142/67, HR 77, O2 sat 97% on 2L NC, Afebrile. CBC unremarkable. Chemistry unremarkable with the. GFR 59. Troponin negative. INR 1.2. CXR with no focal infiltrates, 1.8 cm opacity right perihilar region, cannot exclude mass. CT Head negative. 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 CTA Neck negative. S/p Zosyn in ER. 3-10 patient remains totally aphasic Not able to follow any commands. Past swallow eval with pured diet and thickened liquids We will resume her home medications Continue on aspirin and statin Await neurological evaluation Physical therapy, occupational therapy, and speech therapy evaluations 09-02 POSITIVE CULTURES PENDING SENSITIVITIES CONTINUE ROCEPHIN VANCOMYCIN AND ACYCLOVIR DW NEUROLOGY MOVED TO NEURO FLOOR MUCH MORE ALERT TODAY TALKATIVE- COOPERATIVE DW RN AND PT AND AM LABS 3-12 CONSULT ID REGARDING COAG NEG STAPH MUCH MORE TALKATIVE AND ALERT PROBABLY UNISOM OVERDOSE UNINTENTIONALLY UTI AND COAG NEGATIVE STAPH MUCH IMPROVED DOES NOT WANT TO GO TO REHAB DW FAMILY AND RN AND PT AND CASE MANAGEMENT Objective Vitals Vital Signs Date Time Temp Pulse Resp B/P (MAP) Pulse Ox O2 Delivery O2 Flow Rate FiO2 09/03/17 12:00 97.9 81 18 140/81 (100) 98 09/03/17 09:02 72 09/03/17 08:42 97.7 78 16 146/75 (98) 96 09/03/17 06:00 73 09/03/17 04:00 97.3 73 18 145/73 (97) 95 09/03/17 00:00 97.3 94 18 124/87 (99) 97 09/02/17 22:18 94 Nasal Cannula 2.00 09/02/17 20:00 98.7 86 18 135/68 (90) 91 09/02/17 17:13 74 3/11/18 16:00 97.6 73 16 131/66 (87) 93 I/O 09/02/17 09/02/17 09/02/17 09/03/17 09/03/17 09/03/17 07:00 15:00 23:00 07:00 15:00 23:00 Intake Total 300 ml 300 ml Balance 300 ml 300 ml IV Total 300 ml 300 ml # Voids 3 2 # Bowel Movements 2 Result Diagram: 09/03/17 0610 09/03/17 0610 Other Results Laboratory Tests Test 08/31/17 22:20 08/31/17 22:37 09/01/17 05:22 09/01/17 14:29 White Blood Count 9.3 TH/MM3 Red Blood Count 4.70 MIL/MM3 Hemoglobin 14.3 GM/DL Hematocrit 42.2 % Mean Corpuscular Volume 89.8 FL Mean Corpuscular Hemoglobin 30.5 PG Mean Corpuscular Hemoglobin Concent 33.9 % Red Cell Distribution Width 13.8 % Platelet Count 300 TH/MM3 Mean Platelet Volume 7.0 FL Neutrophils (%) (Auto) 75.8 % Lymphocytes (%) (Auto) 16.4 % Monocytes (%) (Auto) 6.0 % Eosinophils (%) (Auto) 1.4 % Basophils (%) (Auto) 0.4 % Neutrophils # (Auto) 7.1 TH/MM3 Lymphocytes # (Auto) 1.5 TH/MM3 Monocytes # (Auto) 0.6 TH/MM3 Eosinophils # (Auto) 0.1 TH/MM3 Basophils # (Auto) 0.0 TH/MM3 CBC Comment DIFF FINAL Differential Comment Prothrombin Time 12.2 SEC Prothromb Time International Ratio 1.2 RATIO Activated Partial Thromboplast Time 22.9 SEC Blood Urea Nitrogen 14 MG/DL Creatinine 0.93 MG/DL Random Glucose 139 MG/DL Total Protein 7.5 GM/DL Albumin 3.8 GM/DL Calcium Level 9.5 MG/DL Alkaline Phosphatase 44 U/L Aspartate Amino Transf (AST/SGOT) 20 U/L Alanine Aminotransferase (ALT/SGPT) 16 U/L Total Bilirubin 0.9 MG/DL Sodium Level 139 MEQ/L Potassium Level 3.3 MEQ/L Chloride Level 103 MEQ/L Carbon Dioxide Level 26.1 MEQ/L Anion Gap 10 MEQ/L Estimat Glomerular Filtration Rate 59 ML/MIN Troponin I LESS THAN 0.02 NG/ML Urine Color YELLOW Urine Turbidity HAZY Urine pH 6.5 Urine Specific [place] 1.017 Urine Protein 30 mg/dL Urine Glucose (UA) NEG mg/dL Urine Ketones NEG mg/dL Urine Occult Blood MOD Urine Nitrite NEG Urine Bilirubin NEG Urine Urobilinogen LESS THAN 2.0 MG/DL Urine Leukocyte Esterase LARGE Urine RBC 72 /hpf Urine WBC /hpf Urine WBC Clumps MOD Urine Squamous Epithelial Cells 2 /hpf Urine Bacteria OCC /hpf Urine Mucus FEW /lpf Urine Yeast (Budding) MANY Microscopic Urinalysis Comment CATH-CULTURE IND Hemoglobin A1c 5.1 % Phosphorus Level 3.8 MG/DL Magnesium Level 1.7 MG/DL C-Reactive Protein 0.49 MG/DL Triglycerides Level 148 MG/DL Cholesterol Level 207 MG/DL LDL Cholesterol 116 MG/DL HDL Cholesterol 61.0 MG/DL Cholesterol/HDL Ratio 3.39 RATIO Vitamin B12 Level 357 PG/ML Blood Gas Puncture Site LT BRACHIAL Blood Gas Patient Temperature 98.6 Blood Gas HCO3 26 mmol/L Blood Gas Base Excess 2.0 mmol/L Blood Gas Oxygen Saturation 85 % Arterial Blood pH 7.42 Arterial Blood Partial Pressure CO2 41 mmHg Arterial Blood Partial Pressure O2 53 mmHg Arterial Blood Oxygen Content 15.6 Vol % Arterial Blood Carboxyhemoglobin 1.3 % Arterial Blood Methemoglobin 0.8 % Blood Gas Hemoglobin 13.1 G/DL Oxygen Delivery Device ROOM AIR Blood Gas Inspired Oxygen 21 % Test 09/01/17 17:28 09/01/17 19:07 09/02/17 07:32 09/03/17 06:10 Erythrocyte Sedimentation Rate 5 mm/hr Ammonia 16 MCMOL/L Rapid Plasma Reagin NON-REACTIVE CSF Volume (Tube 1) 2.0 ML CSF Supernatant Color (tube 1) CLEAR CSF WBC (Tube 1) 0 /MM3 CSF RBC (Tube 1) 0 /MM3 CSF Volume (Tube 2) 2.5 ML CSF Supernatant Color (tube 2) CLEAR CSF Gross Blood (Tube 2) 0 CSF Volume (Tube 3) 2.0 ML CSF Supernatant Color (tube 3) CLEAR CSF Gross Blood (Tube 3) 0 CSF Volume (Tube 4) 3.2 ML CSF Supernatant Color (tube 4) CLEAR CSF WBC (Tube 4) 3 /MM3 CSF RBC (Tube 4) 0 /MM3 CSF Neutrophils % CSF Lymphocytes % CSF Monocytes 50 % CSF Glucose 60 MG/DL CSF Total Protein 42.3 MG/DL White Blood Count 7.2 TH/MM3 7.5 TH/MM3 Red Blood Count 4.20 MIL/MM3 4.21 MIL/MM3 Hemoglobin 12.9 GM/DL 13.1 GM/DL Hematocrit 37.9 % 38.3 % Mean Corpuscular Volume 90.3 FL 90.9 FL Mean Corpuscular Hemoglobin 30.8 PG 31.0 PG Mean Corpuscular Hemoglobin Concent 34.1 % 34.1 % Red Cell Distribution Width 13.8 % 13.5 % Platelet Count 245 TH/MM3 243 TH/MM3 Mean Platelet Volume 7.1 FL 7.0 FL Neutrophils (%) (Auto) 63.1 % 63.9 % Lymphocytes (%) (Auto) 23.6 % 21.4 % Monocytes (%) (Auto) 11.3 % 9.8 % Eosinophils (%) (Auto) 1.5 % 4.1 % Basophils (%) (Auto) 0.5 % 0.8 % Neutrophils # (Auto) 4.5 TH/MM3 4.8 TH/MM3 Lymphocytes # (Auto) 1.7 TH/MM3 1.6 TH/MM3 Monocytes # (Auto) 0.8 TH/MM3 0.7 TH/MM3 Eosinophils # (Auto) 0.1 TH/MM3 0.3 TH/MM3 Basophils # (Auto) 0.0 TH/MM3 0.1 TH/MM3 CBC Comment DIFF FINAL DIFF FINAL Differential Comment Blood Urea Nitrogen 16 MG/DL 18 MG/DL Creatinine 1.00 MG/DL 1.01 MG/DL Random Glucose 84 MG/DL 86 MG/DL Total Protein 6.6 GM/DL 6.7 GM/DL Albumin 3.2 GM/DL 3.3 GM/DL Calcium Level 8.4 MG/DL 9.8 MG/DL Phosphorus Level 4.2 MG/DL 3.7 MG/DL Magnesium Level 1.8 MG/DL 1.8 MG/DL Alkaline Phosphatase 38 U/L 39 U/L Aspartate Amino Transf (AST/SGOT) 16 U/L 18 U/L Alanine Aminotransferase (ALT/SGPT) 15 U/L 16 U/L Total Bilirubin 0.9 MG/DL 0.8 MG/DL Sodium Level 143 MEQ/L 144 MEQ/L Potassium Level 3.3 MEQ/L 3.3 MEQ/L Chloride Level 105 MEQ/L 106 MEQ/L Carbon Dioxide Level 28.7 MEQ/L 28.1 MEQ/L Anion Gap 9 MEQ/L 10 MEQ/L Estimat Glomerular Filtration Rate 54 ML/MIN 54 ML/MIN Free Thyroxine 1.34 NG/DL Thyroid Stimulating Hormone 3rd Gen 0.228 uIU/ML Imaging Last Impressions Brain MRI 09/02/17 Signed Impressions: Service Date/Time: Saturday, September 02, 2017 12:49 - CONCLUSION: 1. Interval development of T2 hyperintense fluid in the subarachnoid space in the parietal and occipital lobes which may represent either subarachnoid blood or proteinaceous exudate. 2. No evidence of acute infarct or parenchymal hemorrhage. 3. No evidence of developing intra-axial edema. Carlin Walters MD Neck Magnetic Resonance Angiography 09/01/17 Signed Impressions: Service Date/Time: Friday, September 01, 2017 12:09 - CONCLUSION: 1. No evidence of significant stenosis in the extracranial carotid and vertebral arteries. 2. Improved visualization of the intracranial vessels following administration of contrast compared to nonenhanced MRA. There is no evidence of distal left vertebral artery stenosis or focal areas of [id number] narrowing in the proximal MCAs. Carlin Walters MD Lumbar Puncture Fluoroscopy 09/01/17 Signed Impressions: Service Date/Time: Friday, September 01, 2017 19:14 - CONCLUSION: Uncomplicated fluoroscopically guided lumbar puncture. Gordon Rodriguez Jr., MD Head Magnetic Resonance Angiography 09/01/17 Signed Impressions: Service Date/Time: Friday, September 01, 2017 12:09 - CONCLUSION: 1. Suboptimal visualization of the intracranial vessels do to motion artifact. 2. Irregularity is evident throughout the middle and posterior cerebral arteries. 3. Focal areas of diminished flow related enhancement which may represent focal stenoses however considering the amount of background motion these may be artifactual. Carlin Walters MD Chest CT 09/01/17 Signed Impressions: Service Date/Time: Friday, September 01, 2017 10:13 - CONCLUSION: 1. 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 2. No suspicious pulmonary mass or acute airspace disease. 3. Moderate cardiomegaly with calcific described disease of the coronary arteries. 4. Simple left renal cyst. 5. Significant bilateral shoulder arthropathy. Carlin Walters MD Neck CTA [id number]/[id number] Signed Impressions: Service Date/Time: Thursday, August 31, 2017 23:08 - CONCLUSION: Negative CTA of the carotids. Gordon Huerta MD Head CTA [id number] Signed Impressions: Service Date/Time: Thursday, August 31, 2017 23:08 - CONCLUSION: No evidence of vessel truncation. 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 Gordon Huerta MD Head CT [id number] Signed Impressions: Service Date/Time: Thursday, August 31, 2017 22:18 - CONCLUSION: 1. No acute findings in the brain. Gordon Huerta MD Chest X-Ray [id number] Signed Impressions: Service Date/Time: Thursday, August 31, 2017 22:24 - CONCLUSION: 1. No focal infiltrates seen. 2. 1.8 cm focal opacity right perihilar region of uncertain significance; cannot exclude a focal mass. Gordon Huerta MD Objective Remarks GENERAL: She is awake and alert ORIENTED X3 MUCH IMPROVED- TALKATIVE AND COOPERATIVE SKIN: Warm and dry. HEAD: Atraumatic. Normocephalic. EYES: Pupils equal and round. No scleral icterus. No injection or drainage. Extraocular muscles appear grossly intact ENT: No nasal bleeding or discharge. Mucous membranes pink and moist. Tongue is midline NECK: Trachea midline. No JVD. Supple CARDIOVASCULAR: Regular rate and rhythm. S1-S2 no S3 or S4 NO HEAVE OR THRILL OR RUB RESPIRATORY: No accessory muscle use. Clear to auscultation. Breath sounds equal bilaterally. GASTROINTESTINAL: Abdomen soft, non-tender, nondistended. Hepatic and splenic margins not palpable. MUSCULOSKELETAL: Extremities without clubbing, cyanosis, or edema. No obvious deformities. NEUROLOGICAL: Awake and alert. No obvious cranial nerve deficits. Motor grossly within normal limits. Five out of 5 muscle strength in the arms and legs. GOOD SPEECH PSYCHIATRIC: Appropriate mood and affect; insight and judgment ARE NORMAL- NO LONGER APHASIC-RESOLVED Procedures None Medications and IVs Current Medications Sodium Chloride (NS Flush) 2 ml UNSCH PRN IVF FLUSH AFTER USING IV ACCESS; Start 08/31/17 at 22:15; Stop 09/01/17 at 00:39; Status DC Ondansetron HCl (Zofran Inj) 4 mg STK-MED ONCE .ROUTE ; Start 08/31/17 at 22:27; Stop 08/31/17 at 22:28; Status DC Ondansetron HCl (Zofran Inj) 4 mg ONCE ONCE IV PUSH Last administered on at 22:51; Start 08/31/17 at 22:45; Stop 08/31/17 at 22:46; Status DC Aspirin (Aspirin) 325 mg ONCE ONCE PO Last administered on 08/31/17at 23:30; Start 08/31/17 at 23:00; Stop 09/01/17 at 14:02; Status DC Iohexol (Omnipaque 350 Inj) 75 ml STK-MED ONCE IVCONTRAST Last administered on 08/31/17at 23:29; Start 08/31/17 at 23:29; Stop 08/31/17 at 23:30; Status DC Piperacillin Sod/ Tazobactam Sod 100 ml @ 200 mls/hr ONCE ONCE IV Last administered on 09/01/17at 00:23; Start 08/31/17 at 23:45; Stop 09/01/17 at 00:14 ; Status DC Sodium Chloride (NS Flush) 2 ml BID IV FLUSH Last administered on 09/03/17at 07: 54; Start 09/01/17 at 09:00 Sodium Chloride (NS Flush) 2 ml UNSCH PRN IV FLUSH FLUSH AFTER USING IV ACCESS ; Start 09/01/17 at 00:30 Enalaprilat (Vasotec Inj) 1.25 mg Q4H PRN IV PUSH For SBP > 220 or DBP > 120; Start 09/01/17 at 00:30 Aspirin (Aspirin Supp) 300 mg DAILY RECTAL Last administered on 09/01/17at 07:44 ; Start 09/01/17 at 09:00; Stop 09/01/17 at 14:02; Status DC Insulin Aspart (NovoLOG SUPPLEMENTAL SCALE) 1 ACHS SQ ; Start 09/01/17 at 08:00 ; Stop 09/03/17 at 12:22; Status DC Dextrose (D50w (Vial) Inj) 50 ml UNSCH PRN IV PUSH HYPOGLYCEMIA-SEE COMMENTS; Start 09/01/17 at 00:30; Stop 09/03/17 at 12:22; Status DC Glucagon (Glucagon Inj) 1 mg UNSCH PRN OTHER HYPOGLYCEMIA-SEE COMMENTS; Start 09/01/17 at 00:30; Stop 09/03/17 at 12:22; Status DC Ondansetron HCl (Zofran Inj) 4 mg Q6HR PRN IV PUSH NAUSEA OR VOMITING Last administered on 09/01/17at 04:07; Start 09/01/17 at 04:00 Aspirin (Aspirin Chew) 81 mg DAILY CHEW ; Start 09/01/17 at 09:00; Stop at 09:11; Status DC Furosemide (Lasix) 40 mg DAILY PO Last administered on 09/03/17at 08:01; Start 09/01/17 at 09:00 Hydrochlorothiazide (Microzide) 12.5 mg DAILY PO Last administered on at 08:00; Start 09/01/17 at 09:00 Losartan Potassium (Cozaar) 100 mg DAILY PO Last administered on 09/03/17at 08: 01; Start 09/01/17 at 09:00 Pravastatin Sodium (Pravachol) 20 mg DAILY PO Last administered on 09/03/17at 08 :00; Start 09/01/17 at 09:00 Meclizine HCl (Antivert) 12.5 mg Q8H PRN PO VERTIGO; Start 09/01/17 at 09:00; Stop 09/01/17 at 14:02; Status DC Metoprolol Tartrate (Lopressor) 100 mg BID PO Last administered on 09/03/17at 08 :01; Start 09/01/17 at 09:00 Pantoprazole Sodium (Protonix) 20 mg DAILY PO Last administered on 09/03/17at 08 :01; Start 09/01/17 at 09:00 Prednisone (Deltasone) 2.5 mg DAILY PO Last administered on 09/03/17at 07:59; Start 09/01/17 at 09:00 Aspirin (Aspirin) 325 mg DAILY PO ; Start 09/01/17 at 09:15; Stop 09/01/17 at 14 :02; Status DC Ceftriaxone Sodium 1000 mg/ Sodium Chloride 100 ml @ 200 mls/hr Q24H IV Last administered on 09/03/17at 08:39; Start 09/01/17 at 09:00 Potassium Bicarb/ Potassium Chloride (K-Lyte Cl Eff) 50 meq ONCE ONCE PO ; Start 09/01/17 at 09:15; Stop 09/01/17 at 09:46; Status DC Potassium Bicarb/ Potassium Chloride (K-Lyte Cl Eff) 25 meq DAILY PO Last administered on 09/03/17at 07:59; Start 09/02/17 at 09:00 Potassium Bicarb/ Potassium Chloride (K-Lyte Cl Eff) 50 meq ONCE ONCE PO ; Start 09/01/17 at 09:15; Stop 09/01/17 at 09:16; Status UNV Potassium Bicarb/ Potassium Chloride (K-Lyte Cl Eff) 25 meq DAILY PO ; Start at 09:00; Status UNV Iohexol (Omnipaque 350 Inj) 65 ml STK-MED ONCE IVCONTRAST Last administered on 09/01/17at 10:32; Start 09/01/17 at 10:32; Stop 09/01/17 at 10:33; Status DC Lorazepam (Ativan Inj) 1 mg ONCE ONCE IV PUSH Last administered on 09/01/17at 11:51; Start 09/01/17 at 11:00; Stop 09/02/17 at 09:55; Status DC Gadodiamide (Omniscan Pf Inj) 20 ml STK-MED ONCE IVCONTRAST Last administered on 09/01/17at 12:36; Start 09/01/17 at 12:36; Stop 09/01/17 at 12:37; Status DC Acyclovir Sodium 568 mg/Sodium Chloride 100 ml @ 100 mls/hr Q8H IV Last administered on 09/03/17at 09:20; Start 09/01/17 at 17:00 Ampicillin Sodium 1000 mg/Sodium Chloride 100 ml @ 400 mls/hr Q4H IV Last administered on 09/02/17at 07:39; Start 09/01/17 at 16:00; Stop 09/02/17 at 08:22 ; Status DC Vancomycin HCl 850 mg/Sodium Chloride 258.5 ml @ 250 mls/hr Q12H IV ; Start 04/11 at 18:00; Stop 09/01/17 at 22:08; Status DC Levetriacetam 100 ml @ 400 mls/hr Q12HR IV Last administered on 09/03/17at 07: 54; Start 09/01/17 at 21:00 Vancomycin HCl 850 mg/Sodium Chloride 258.5 ml @ 250 mls/hr Q12H IV Last administered on 09/02/17at 00:04; Start 09/01/17 at 22:00; Stop 09/02/17 at 08:22 ; Status DC Vancomycin HCl 1000 mg/Sodium Chloride 250 ml @ 250 mls/hr ONCE ONCE IV ; Start 09/02/17 at 09:45; Stop 09/02/17 at 10:44; Status UNV Pharmacy Profile Note 0 ml @ 0 mls/hr UNSCH OTHER ; Start 09/02/17 at 09:45 Vancomycin HCl 1000 mg/Sodium Chloride 250 ml @ 250 mls/hr Q24H IV Last administered on 09/03/17at 11:40; Start 09/02/17 at 12:00 Senna/Docusate Sodium (Franci-Colace) 2 tab BID PO Last administered on at 08:00; Start 09/02/17 at 21:00 Magnesium Hydroxide (Milk Of Magnesia Liq) 30 ml Q6H PRN PO CONSTIPATION; Start 09/02/17 at 12:15 Miscellaneous Information SPECIFIC LAB TO BE ... ONCE ONCE .XX ; Start 09/05 at 11:45; Stop 09/05/17 at 11:46 Acetaminophen (Tylenol) 650 mg Q8H PRN PO HEADACHE Last administered on at 23:02; Start 09/02/17 at 23:00 A/P Problem List: (1) Encephalopathy ICD Code: G93.40 - Encephalopathy, unspecified (2) CVA (cerebral vascular accident) ICD Code: I63.9 - Cerebral infarction, unspecified (3) UTI (urinary tract infection) ICD Code: N39.0 - Urinary tract infection, site not specified (4) Hypertension ICD Code: I10 - Essential (primary) hypertension (5) Hyperlipidemia ICD Code: E78.5 - Hyperlipidemia, unspecified (6) GERD (gastroesophageal reflux disease) ICD Code: K21.9 - Gastro-esophageal reflux disease without esophagitis (7) Vertigo ICD Code: R42 - Dizziness and giddiness (8) Hypokalemia ICD Code: E87.6 - Hypokalemia Assessment and Plan 1. Encephalopathy: MUCH IMPROVED acute episode of AMS noted by family, previously AA&Ox4 at baseline per Daughter. Neuro Checks. CT Head w/ no acute findings, images reviewed by me. Possibly compounded by UTI, continue w/ IV Rocephin. 2. CVA RULED OUT slurred speech/confusion noted at 3:30pm, outside [facility] window , previously aphasic, now able to say "yes". FOLLOWING COMMANDS NOW. CTA Head w / no truncation, 3mm calcified aneurysm right ICA, CTA Neck negative, images reviewed by me. IVF, PT/Speech Consult for eval/tx. Consult Neurology for further evaluation. MUCH IMPROVED FROM YESTERDAY AWAKE AND ALERT- JOKING AROUND--POSSIBLE BENADRYL/ UNISOM OVERDOSE UNINTENTIONALLY 3. UTI: U/a w/ UTI, follow up cultures, continue w/ IV Abx, IVF. ROCEPHIN AND VANCO- HYPOKALEMIA WILL REPLACE AGAIN Hypertension resume home medications Hyperlipidemia resume all medications AM LABS PT, OT, and ST 4. DVT Prophylaxis: SCD/Teds AWAIT SENSITIVITIES ON CULTURES ON VANCO, ROCEPHIN AND ACYCLOVIR- COAG NEGATIVE STAPH- CONSULT ID 5. Social work for d/c planning as needed. Discharge Planning Pending neurological clearance May need to go to SNF at discharge Aleksander Smith DO Sep 03, 2017 12:36
[2017-09-03] MEDS ORDERED: POTASSIUM CHLORIDE 25 MEQ EFFERVESCENT TAB PO ONE (12:45)
[2017-09-03 14:45] LABS: ANA SCREEN NEG (NEG)
[2017-09-03 16:56] LABS: HEMOGLOBIN A1C 5.1 % (4.3-6.0)
--- NOTE | 2017-09-03 17:16 | ECHRPT ---
Indication: CVA/TIA CONCLUSIONS Normal left ventricular size. Mild concentric left ventricular hypertrophy. The left ventricular systolic function is low normal with an estimated ejection fraction in the rang e of 50- 55%. The left atrial size is ftllzltp-[id number]-vevtscdy dilated. The right atrial size is mildly dilated. No atrial level shunt is demonstrated by color flow Doppler interrogation. Mild mitral annular calcification. Trace mitral valve regurgitation. Mild aortic valve regurgitation. There is mild tricuspid valve regurgitation. The estimated pulmonary arterial pressure is 47.9 mmHg. The pulmonary valve is not well visualized. BP: 123 / 64 HR: 83 Rhythm: Sinus MEASUREMENTS (Male / Female) Normal Values Technical Quality:Fair 2D ECHO LV Diastolic Diameter PLAX 4.3 cm 4.2 - 5.9 / 3.9 - 5.3 cm LV Systolic Diameter PLAX 3.4 cm IVS Diastolic Thickness 1.2 cm 0.6 - 1.0 / 0.6 - 0.9 cm LVPW Diastolic Thickness 1.1 cm 0.6 - 1.0 / 0.6 - 0.9 cm LV Relative Wall Thickness 0.5 RV Internal Dim ED PLAX 3.1 cm LVOT Diameter 2.2 cm LA Systolic Diameter LX 5.3 cm 3.0 - 4.0 / 2.7 - 3.8 cm LA Volume Index 53.3 cm/m 16 - 28 cm/m M-MODE Aortic Root Diameter MM 3.1 cm LA Systolic Diameter MM 5.1 cm LA Ao Ratio MM 1.6 AV Cusp Separation MM 1.8 cm DOPPLER AV Peak Velocity 109.0 cm/s AV Peak Gradient 4.8 mmHg AI Peak Velocity 418.5 cm/s AI Peak Gradient 70.1 mmHg AI Pressure Half Time 476.0 ms LVOT Peak Velocity 74.3 cm/s LVOT Peak Gradient 2.2 mmHg AV Area Cont Eq pk 2.6 cm MV Area PHT 3.9 cm Mitral E Point Velocity 41.3 cm/s Mitral A Point Velocity 58.3 cm/s Mitral E to A Ratio 0.7 LV E' Lateral Velocity 5.7 cm/s Mitral E to LV E' Lateral Ratio 7.3 LV E' Septal Velocity 3.2 cm/s Mitral E to LV E' Septal Ratio 13.0 TR Peak Velocity 308.0 cm/s TR Peak Gradient 37.9 mmHg Right Atrial Pressure 10.0 mmHg Pulmonary Artery Systolic Pressu 47.9 mmHg Right Ventricular Systolic Press 47.9 mmHg FINDINGS LEFT VENTRICLE Normal left ventricular size. Mild concentric left ventricular hypertrophy. The left ventricular systolic function is low normal with an estimated ejection fraction in the rang e of 50- 55%. RIGHT VENTRICLE Normal right ventricular size and systolic function. LEFT ATRIUM The left atrial size is dmbuiikl-yv-ykglhjup dilated. RIGHT ATRIUM The right atrial size is mildly dilated. ATRIAL SEPTUM No atrial level shunt is demonstrated by color flow Doppler interrogation. AORTA The aortic root and proximal ascending aorta are normal in size on limited imaging. MITRAL VALVE Mild mitral annular calcification. Trace mitral valve regurgitation. AORTIC VALVE Mild aortic valve regurgitation. TRICUSPID VALVE There is mild tricuspid valve regurgitation. The estimated pulmonary arterial pressure is 47.9 mmHg. PULMONARY VALVE The pulmonary valve is not well visualized. VESSELS The inferior vena cava is normal in size. PERICARDIUM No pericardial effusion. Mat Allen MD, FACC (Electronically Signed) Final Date:03 September 2017 17:15
[2017-09-04] VITALS (8 sets, daily range): BP systolic 131–155; BP diastolic 68–95; PULSE 80–88; RESP 19–21; TEMP 97.9–99.3; O2SAT 92–96
--- NOTE | 2017-09-04 07:24 | HHI.PR ---
Subjective Remarks ruelas none now did not sleep well Objective Vital Signs Date Time Temp Pulse Resp B/P (MAP) Pulse Ox O2 Delivery O2 Flow Rate FiO2 09/04/17 05:47 98.5 80 21 144/68 (93) 92 09/04/17 01:16 97.9 82 21 155/68 (97) 95 09/03/17 22:05 98.8 93 22 142/67 (92) 94 09/03/17 17:19 97 Nasal Cannula 2.00 09/03/17 16:40 85 09/03/17 16:00 97.8 85 18 155/78 (103) 95 09/03/17 14:19 97 Nasal Cannula 2.00 09/03/17 13:22 82 09/03/17 12:00 97.9 81 18 140/81 (100) 98 09/03/17 09:02 72 09/03/17 08:42 97.7 78 16 146/75 (98) 96 I/O 09/03/17 09/03/17 09/03/17 09/04/17 09/04/17 09/04/17 07:00 15:00 23:00 07:00 15:00 23:00 Intake Total 550 ml Balance 550 ml IV Total 550 ml # Voids 2 3 1 # Bowel Movements 1 Result Diagram: 09/03/1710 09/03/17 0610 Objective Remarks awake alert face sym moves all follows commands well speech slurred now but nurse state like that every am knows db not month or yr know hmc vff moves all well Assessment and Plan Assessment and Plan imp LP neg eeg some mild r changes +/- sharps on keppra blood and urine cx pos plan cont acyclovir until pcr back i dw med team watch renal fx daily on that ivf keppra change to po when taking better hold sedatives recheck mri make sure no small cva missed first time sepsis vanco much better 09/03/17 really looks well some stm off the mri repeat yest no cva but some posterior bilat extra axial fluid unclear what that is with nl LP plan is to repeat mri tomorrow and see if cleared but clinically not apparent may have some mild dementia oob 09/04/17 doing well fu hsv pcr repeat mri today sepsis stable neuro Brock Laughlin MD Sep 04, 2017 07:24
[2017-09-04 08:17] LABS: AUTOMATED NEUTROPHIL # 6.6 TH/MM3 (1.8-7.7); BASOPHIL # 0.1 TH/MM3 (0-0.2); BASOPHIL % 0.6 % (0.0-2.0); EOSINOPHIL # 0.3 TH/MM3 (0-0.4); EOSINOPHIL % 2.9 % (0.0-4.0); HEMATOCRIT 38.6 % (35.0-46.0); HEMOGLOBIN 13.2 GM/DL (11.6-15.3); LYMPH % 17.9 % (9.0-44.0); LYMPHOCYTE # 1.7 TH/MM3 (1.0-4.8); MEAN CELL VOLUME 91.7 FL (80.0-100.0); MEAN CORPUSCULAR HEMOGLOBIN 31.3 PG (27.0-34.0); MEAN CORPUSCULAR HGB CONC 34.2 % (32.0-36.0); MEAN PLATELET VOLUME 7.4 FL (7.0-11.0); MONO % 9.2 % (0.0-8.0); MONOCYTE # 0.9 TH/MM3 (0-0.9); NEUT % 69.4 % (16.0-70.0); PLATELET COUNT 283 TH/MM3 (150-450); RED CELL DISTRIBUTION WIDTH 13.5 % (11.6-17.2); WHITE BLOOD COUNT 9.5 TH/MM3 (4.0-11.0)
[2017-09-04] MEDS: levETIRAcetam INJ 100 ML IV SCH ×2 (08:36→21:57)
[2017-09-04] MEDS: HYDROCHLOROTHIAZIDE 12.5 MG CAP PO SCH (08:37)
[2017-09-04] MEDS: PANTOPRAZOLE SOD 20 MG DELAYED RELEASE TAB PO SCH (08:37)
[2017-09-04] MEDS: METOPROLOL TARTRATE 100 MG TAB PO SCH ×2 (08:37→22:04)
[2017-09-04] MEDS: PRAVASTATIN SOD 20 MG TAB PO SCH (08:37)
[2017-09-04] MEDS: SODIUM CHLORIDE 0.9% FLUSH 10 ML FLUSH IV FLUSH SCH ×2 (08:38→22:04)
[2017-09-04] MEDS: DOCUSATE SODIUM 50 MG/SENNA 8.6 MG TAB PO SCH ×2 (08:38→22:04)
[2017-09-04] MEDS: POTASSIUM CHLORIDE 25 MEQ EFFERVESCENT TAB PO SCH (08:38)
[2017-09-04] MEDS: FUROSEMIDE 40 MG TAB PO SCH (08:38)
[2017-09-04] MEDS: LOSARTAN 50 MG TAB PO SCH (08:38)
[2017-09-04] MEDS: predniSONE 5 MG TAB PO SCH (08:38)
[2017-09-04 08:45] LABS: ALBUMIN 3.3 GM/DL (3.4-5.0); ALT (GPT) 16 U/L (10-53); AST (GOT) 16 U/L (15-37); BICARBONATE 31.4 MEQ/L (21.0-32.0); BLOOD UREA NITROGEN 20 MG/DL (7-18); CALCIUM 9.7 MG/DL (8.5-10.1); CHLORIDE 105 MEQ/L (98-107); CREATININE 1.11 MG/DL (0.50-1.00); GLOMERULAR FILTRATION RATE 48 ML/MIN (>89); GLUCOSE,RANDOM 96 MG/DL (74-106); MAGNESIUM 1.7 MG/DL (1.5-2.5); PHOSPHORUS 3.5 MG/DL (2.5-4.9); SODIUM (NA) 145 MEQ/L (136-145)
[2017-09-04 08:47] LABS: ALKALINE PHOSPHATASE 42 U/L (45-117); TOTAL BILIRUBIN ADULT 0.7 MG/DL (0.2-1.0); TOTAL PROTEIN 6.8 GM/DL (6.4-8.2)
[2017-09-04 08:58] LABS: HSV 1,PCR Negative (Negative)
[2017-09-04] MEDS: ACYCLOVIR IV SCH (09:39)
[2017-09-04] MEDS: SODIUM CHLORIDE 0.9% IV SCH (09:39)
[2017-09-04] MEDS: cefTRIAXone INJ 1,000 MG in SODIUM CHLORIDE 0.9% INJ 100 ML IV SCH (10:37)
--- NOTE | 2017-09-04 11:04 | HHI.PR ---
Subjective Remarks This is a 76-year-old female with a PMH of HTN, Hyperlipidemia, COPD and Tobacco Abuse who is brought to the ER by EMS secondary to AMS, Stroke Alert initiated in field prior to arrival. Pt unable to provide any history as she is aphasic, not following commands. Per Daughter, pt is AA&Ox4 at baseline, ambulates without difficulty. Today pt noted to be confused, not making sense, slurring speech at approx 3:30pm. On arrival, BP 142/67, HR 77, O2 sat 97% on 2L NC, Afebrile. CBC unremarkable. Chemistry unremarkable with the. GFR 59. Troponin negative. INR 1.2. CXR with no focal infiltrates, 1.8 cm opacity right perihilar region, cannot exclude mass. CT Head negative. 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 CTA Neck negative. S/p Zosyn in ER. 3-10 patient remains totally aphasic Not able to follow any commands. Past swallow eval with pured diet and thickened liquids We will resume her home medications Continue on aspirin and statin Await neurological evaluation Physical therapy, occupational therapy, and speech therapy evaluations 09-02 POSITIVE CULTURES PENDING SENSITIVITIES CONTINUE ROCEPHIN VANCOMYCIN AND ACYCLOVIR DW NEUROLOGY MOVED TO NEURO FLOOR MUCH MORE ALERT TODAY TALKATIVE- COOPERATIVE DW RN AND PT AND CM AM LABS 09-03 CONSULT ID REGARDING COAG NEG STAPH MUCH MORE TALKATIVE AND ALERT PROBABLY UNISOM OVERDOSE UNINTENTIONALLY UTI AND COAG NEGATIVE STAPH MUCH IMPROVED DOES NOT WANT TO GO TO REHAB DW FAMILY AND RN AND PT AND CASE MANAGEMENT 09-04 THINKS SHE SAW ID TODAY CALIN RN AND PT TO HAVE REPEAT MRI TODAY CONTINUE PT AND OT MAY NEED SNF AT DC Objective Vitals Vital Signs Date Time Temp Pulse Resp B/P (MAP) Pulse Ox O2 Delivery O2 Flow Rate FiO2 09/04/17 10:41 85 09/04/17 07:40 98.0 84 19 141/70 (93) 93 09/04/17 05:47 98.5 80 21 144/68 (93) 92 09/04/17 01:16 97.9 82 21 155/68 (97) 95 09/03/17 22:05 98.8 93 22 142/67 (92) 94 09/03/17 17:19 97 Nasal Cannula 2.00 09/03/17 16:40 85 09/03/17 16:00 97.8 85 18 155/78 (103) 95 09/03/17 14:19 97 Nasal Cannula 2.00 09/03/17 13:22 82 09/03/17 12:00 97.9 81 18 140/81 (100) 98 I/O 09/03/17 09/03/17 09/03/17 09/04/17 09/04/17 09/04/17 07:00 15:00 23:00 07:00 15:00 23:00 Intake Total 550 ml Balance 550 ml IV Total 550 ml # Voids 2 3 1 # Bowel Movements 1 Result Diagram: 09/04/17 0540 09/04/17 0540 Other Results Laboratory Tests Test 09/01/17 14:29 09/01/17 17:28 09/01/17 19:07 09/02/17 07:32 Blood Gas Puncture Site LT BRACHIAL Blood Gas Patient Temperature 98.6 Blood Gas HCO3 26 mmol/L Blood Gas Base Excess 2.0 mmol/L Blood Gas Oxygen Saturation 85 % Arterial Blood pH 7.42 Arterial Blood Partial Pressure CO2 41 mmHg Arterial Blood Partial Pressure O2 53 mmHg Arterial Blood Oxygen Content 15.6 Vol % Arterial Blood Carboxyhemoglobin 1.3 % Arterial Blood Methemoglobin 0.8 % Blood Gas Hemoglobin 13.1 G/DL Oxygen Delivery Device ROOM AIR Blood Gas Inspired Oxygen 21 % Erythrocyte Sedimentation Rate 5 mm/hr Ammonia 16 MCMOL/L Anti-Nuclear Antibody Screen NEG Rapid Plasma Reagin NON-REACTIVE CSF Volume (Tube 1) 2.0 ML CSF Supernatant Color (tube 1) CLEAR CSF WBC (Tube 1) 0 /MM3 CSF RBC (Tube 1) 0 /MM3 CSF Volume (Tube 2) 2.5 ML CSF Supernatant Color (tube 2) CLEAR CSF Gross Blood (Tube 2) 0 CSF Volume (Tube 3) 2.0 ML CSF Supernatant Color (tube 3) CLEAR CSF Gross Blood (Tube 3) 0 CSF Volume (Tube 4) 3.2 ML CSF Supernatant Color (tube 4) CLEAR CSF WBC (Tube 4) 3 /MM3 CSF RBC (Tube 4) 0 /MM3 CSF Neutrophils % CSF Lymphocytes % CSF Monocytes 50 % CSF Glucose 60 MG/DL CSF Total Protein 42.3 MG/DL Herpes Simplex Virus I DNA (PCR) Negative Herpes Simplex Virus II DNA (PCR) Negative White Blood Count 7.2 TH/MM3 Red Blood Count 4.20 MIL/MM3 Hemoglobin 12.9 GM/DL Hematocrit 37.9 % Mean Corpuscular Volume 90.3 FL Mean Corpuscular Hemoglobin 30.8 PG Mean Corpuscular Hemoglobin Concent 34.1 % Red Cell Distribution Width 13.8 % Platelet Count 245 TH/MM3 Mean Platelet Volume 7.1 FL Neutrophils (%) (Auto) 63.1 % Lymphocytes (%) (Auto) 23.6 % Monocytes (%) (Auto) 11.3 % Eosinophils (%) (Auto) 1.5 % Basophils (%) (Auto) 0.5 % Neutrophils # (Auto) 4.5 TH/MM3 Lymphocytes # (Auto) 1.7 TH/MM3 Monocytes # (Auto) 0.8 TH/MM3 Eosinophils # (Auto) 0.1 TH/MM3 Basophils # (Auto) 0.0 TH/MM3 CBC Comment DIFF FINAL Differential Comment Blood Urea Nitrogen 16 MG/DL Creatinine 1.00 MG/DL Random Glucose 84 MG/DL Total Protein 6.6 GM/DL Albumin 3.2 GM/DL Calcium Level 8.4 MG/DL Phosphorus Level 4.2 MG/DL Magnesium Level 1.8 MG/DL Alkaline Phosphatase 38 U/L Aspartate Amino Transf (AST/SGOT) 16 U/L Alanine Aminotransferase (ALT/SGPT) 15 U/L Total Bilirubin 0.9 MG/DL Sodium Level 143 MEQ/L Potassium Level 3.3 MEQ/L Chloride Level 105 MEQ/L Carbon Dioxide Level 28.7 MEQ/L Anion Gap 9 MEQ/L Estimat Glomerular Filtration Rate 54 ML/MIN Hemoglobin A1c 5.1 % Free Thyroxine 1.34 NG/DL Thyroid Stimulating Hormone 3rd Gen 0.228 uIU/ML Test 09/03/17 06:10 09/04/17 05:40 White Blood Count 7.5 TH/MM3 9.5 TH/MM3 Red Blood Count 4.21 MIL/MM3 4.20 MIL/MM3 Hemoglobin 13.1 GM/DL 13.2 GM/DL Hematocrit 38.3 % 38.6 % Mean Corpuscular Volume 90.9 FL 91.7 FL Mean Corpuscular Hemoglobin 31.0 PG 31.3 PG Mean Corpuscular Hemoglobin Concent 34.1 % 34.2 % Red Cell Distribution Width 13.5 % 13.5 % Platelet Count 243 TH/MM3 283 TH/MM3 Mean Platelet Volume 7.0 FL 7.4 FL Neutrophils (%) (Auto) 63.9 % 69.4 % Lymphocytes (%) (Auto) 21.4 % 17.9 % Monocytes (%) (Auto) 9.8 % 9.2 % Eosinophils (%) (Auto) 4.1 % 2.9 % Basophils (%) (Auto) 0.8 % 0.6 % Neutrophils # (Auto) 4.8 TH/MM3 6.6 TH/MM3 Lymphocytes # (Auto) 1.6 TH/MM3 1.7 TH/MM3 Monocytes # (Auto) 0.7 TH/MM3 0.9 TH/MM3 Eosinophils # (Auto) 0.3 TH/MM3 0.3 TH/MM3 Basophils # (Auto) 0.1 TH/MM3 0.1 TH/MM3 CBC Comment DIFF FINAL DIFF FINAL Differential Comment Blood Urea Nitrogen 18 MG/DL 20 MG/DL Creatinine 1.01 MG/DL 1.11 MG/DL Random Glucose 86 MG/DL 96 MG/DL Total Protein 6.7 GM/DL 6.8 GM/DL Albumin 3.3 GM/DL 3.3 GM/DL Calcium Level 9.8 MG/DL 9.7 MG/DL Phosphorus Level 3.7 MG/DL 3.5 MG/DL Magnesium Level 1.8 MG/DL 1.7 MG/DL Alkaline Phosphatase 39 U/L 42 U/L Aspartate Amino Transf (AST/SGOT) 18 U/L 16 U/L Alanine Aminotransferase (ALT/SGPT) 16 U/L 16 U/L Total Bilirubin 0.8 MG/DL 0.7 MG/DL Sodium Level 144 MEQ/L 145 MEQ/L Potassium Level 3.3 MEQ/L 3.4 MEQ/L Chloride Level 106 MEQ/L 105 MEQ/L Carbon Dioxide Level 28.1 MEQ/L 31.4 MEQ/L Anion Gap 10 MEQ/L 9 MEQ/L Estimat Glomerular Filtration Rate 54 ML/MIN 48 ML/MIN Imaging Last Impressions Brain MRI 09/02/17 0000 Signed Impressions: Service Date/Time: Saturday, September 02, 2017 12:49 - CONCLUSION: 1. Interval development of T2 hyperintense fluid in the subarachnoid space in the parietal and occipital lobes which may represent either subarachnoid blood or proteinaceous exudate. 2. No evidence of acute infarct or parenchymal hemorrhage. 3. No evidence of developing intra-axial edema. Carlin Walters MD Neck Magnetic Resonance Angiography 09/01/17 Signed Impressions: Service Date/Time: Friday, September 01, 2017 12:09 - CONCLUSION: 1. No evidence of significant stenosis in the extracranial carotid and vertebral arteries. 2. Improved visualization of the intracranial vessels following administration of contrast compared to nonenhanced MRA. There is no evidence of distal left vertebral artery stenosis or focal areas of [id number] narrowing in the proximal MCAs. Carlin Walters MD Lumbar Puncture Fluoroscopy 09/01/17 Signed Impressions: Service Date/Time: Friday, September 01, 2017 19:14 - CONCLUSION: Uncomplicated fluoroscopically guided lumbar puncture. Gordon Rodriguez Jr., MD Head Magnetic Resonance Angiography 09/01/17 Signed Impressions: Service Date/Time: Friday, September 01, 2017 12:09 - CONCLUSION: 1. Suboptimal visualization of the intracranial vessels do to motion artifact. 2. Irregularity is evident throughout the middle and posterior cerebral arteries. 3. Focal areas of diminished flow related enhancement which may represent focal stenoses however considering the amount of background motion these may be artifactual. Carlin Walters MD Chest CT 09/01/17 Signed Impressions: Service Date/Time: Friday, September 01, 2017 10:13 - CONCLUSION: 1. 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 2. No suspicious pulmonary mass or acute airspace disease. 3. Moderate cardiomegaly with calcific described disease of the coronary arteries. 4. Simple left renal cyst. 5. Significant bilateral shoulder arthropathy. Carlin Walters MD Neck CTA [id number] Signed Impressions: Service Date/Time: Thursday, August 31, 2017 23:08 - CONCLUSION: Negative CTA of the carotids. Gordon Huerta MD Head CTA [id number] Signed Impressions: Service Date/Time: Thursday, August 31, 2017 23:08 - CONCLUSION: No evidence of vessel truncation. 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 Gordon Huerta MD Head CT [id number] Signed Impressions: Service Date/Time: Thursday, August 31, 2017 22:18 - CONCLUSION: 1. No acute findings in the brain. Gordon Huerta MD Chest X-Ray 3/9/18 [id number] Signed Impressions: Service Date/Time: Thursday, August 31, 2017 22:24 - CONCLUSION: 1. No focal infiltrates seen. 2. 1.8 cm focal opacity right perihilar region of uncertain significance; cannot exclude a focal mass. Gordon Huerta MD Objective Remarks GENERAL: She is awake and alert ORIENTED X3 MUCH IMPROVED- TALKATIVE AND COOPERATIVE SKIN: Warm and dry. HEAD: Atraumatic. Normocephalic. EYES: Pupils equal and round. No scleral icterus. No injection or drainage. Extraocular muscles appear grossly intact ENT: No nasal bleeding or discharge. Mucous membranes pink and moist. Tongue is midline NECK: Trachea midline. No JVD. Supple CARDIOVASCULAR: Regular rate and rhythm. S1-S2 no S3 or S4 NO HEAVE OR THRILL OR RUB RESPIRATORY: No accessory muscle use. Clear to auscultation. Breath sounds equal bilaterally. GASTROINTESTINAL: Abdomen soft, non-tender, nondistended. Hepatic and splenic margins not palpable. MUSCULOSKELETAL: Extremities without clubbing, cyanosis, or edema. No obvious deformities. NEUROLOGICAL: Awake and alert. No obvious cranial nerve deficits. Motor grossly within normal limits. Five out of 5 muscle strength in the arms and legs. GOOD SPEECH PSYCHIATRIC: Appropriate mood and affect; insight and judgment ARE NORMAL- NO LONGER APHASIC-RESOLVED Procedures LUMBAR PUNCTURE Medications and IVs Current Medications Sodium Chloride (NS Flush) 2 ml UNSCH PRN IVF FLUSH AFTER USING IV ACCESS; Start 08/31/17 at 22:15; Stop 09/01/17 at 00:39; Status DC Ondansetron HCl (Zofran Inj) 4 mg STK-MED ONCE .ROUTE ; Start 08/31/17 at 22:27; Stop 08/31/17 at 22:28; Status DC Ondansetron HCl (Zofran Inj) 4 mg ONCE ONCE IV PUSH Last administered on at 22:51; Start 08/31/17 at 22:45; Stop 08/31/17 at 22:46; Status DC Aspirin (Aspirin) 325 mg ONCE ONCE PO Last administered on 08/31/17at 23:30; Start 08/31/17 at 23:00; Stop 09/01/17 at 14:02; Status DC Iohexol (Omnipaque 350 Inj) 75 ml STK-MED ONCE IVCONTRAST Last administered on 08/31/17at 23:29; Start 08/31/17 at 23:29; Stop 08/31/17 at 23:30; Status DC Piperacillin Sod/ Tazobactam Sod 100 ml @ 200 mls/hr ONCE ONCE IV Last administered on 09/01/17at 00:23; Start 08/31/17 at 23:45; Stop 09/01/17 at 00:14 ; Status DC Sodium Chloride (NS Flush) 2 ml BID IV FLUSH Last administered on 09/04/17at 08: 38; Start 09/01/17 at 09:00 Sodium Chloride (NS Flush) 2 ml UNSCH PRN IV FLUSH FLUSH AFTER USING IV ACCESS ; Start 09/01/17 at 00:30 Enalaprilat (Vasotec Inj) 1.25 mg Q4H PRN IV PUSH For SBP > 220 or DBP > 120; Start 09/01/17 at 00:30 Aspirin (Aspirin Supp) 300 mg DAILY RECTAL Last administered on 09/01/17at 07:44 ; Start 09/01/17 at 09:00; Stop 09/01/17 at 14:02; Status DC Insulin Aspart (NovoLOG SUPPLEMENTAL SCALE) 1 ACHS SQ ; Start 09/01/17 at 08:00 ; Stop 09/03/17 at 12:22; Status DC Dextrose (D50w (Vial) Inj) 50 ml UNSCH PRN IV PUSH HYPOGLYCEMIA-SEE COMMENTS; Start 09/01/17 at 00:30; Stop 09/03/17 at 12:22; Status DC Glucagon (Glucagon Inj) 1 mg UNSCH PRN OTHER HYPOGLYCEMIA-SEE COMMENTS; Start 09/01/17 at 00:30; Stop 09/03/17 at 12:22; Status DC Ondansetron HCl (Zofran Inj) 4 mg Q6HR PRN IV PUSH NAUSEA OR VOMITING Last administered on 09/01/17at 04:07; Start 09/01/17 at 04:00 Aspirin (Aspirin Chew) 81 mg DAILY CHEW ; Start 09/01/17 at 09:00; Stop at 09:11; Status DC Furosemide (Lasix) 40 mg DAILY PO Last administered on 09/04/17at 08:38; Start 09/01/17 at 09:00 Hydrochlorothiazide (Microzide) 12.5 mg DAILY PO Last administered on 08:37; Start 09/01/17 at 09:00 Losartan Potassium (Cozaar) 100 mg DAILY PO Last administered on 09/04/17 08: 38; Start 09/01/17 at 09:00 Pravastatin Sodium (Pravachol) 20 mg DAILY PO Last administered on 09/04/17 08 :37; Start 09/01/17 at 09:00 Meclizine HCl (Antivert) 12.5 mg Q8H PRN PO VERTIGO; Start 09/01/17 at 09:00; Stop 09/01/17 at 14:02; Status DC Metoprolol Tartrate (Lopressor) 100 mg BID PO Last administered on 09/04/17 08 :37; Start 09/01/17 at 09:00 Pantoprazole Sodium (Protonix) 20 mg DAILY PO Last administered on 09/04/17 08 :37; Start 09/01/17 at 09:00 Prednisone (Deltasone) 2.5 mg DAILY PO Last administered on 09/04/17 08:38; Start 09/01/17 at 09:00 Aspirin (Aspirin) 325 mg DAILY PO ; Start 09/01/17 at 09:15; Stop 09/01/17 at 14 :02; Status DC Ceftriaxone Sodium 1000 mg/ Sodium Chloride 100 ml @ 200 mls/hr Q24H IV Last administered on 09/04/17at 10:37; Start 09/01/17 at 09:00 Potassium Bicarb/ Potassium Chloride (K-Lyte Cl Eff) 50 meq ONCE ONCE PO ; Start 09/01/17 at 09:15; Stop 09/01/17 at 09:46; Status DC Potassium Bicarb/ Potassium Chloride (K-Lyte Cl Eff) 25 meq DAILY PO Last administered on 09/04/17at 08:38; Start 09/02/17 at 09:00 Potassium Bicarb/ Potassium Chloride (K-Lyte Cl Eff) 50 meq ONCE ONCE PO ; Start 09/01/17 at 09:15; Stop 09/01/17 at 09:16; Status UNV Potassium Bicarb/ Potassium Chloride (K-Lyte Cl Eff) 25 meq DAILY PO ; Start at 09:00; Status UNV Iohexol (Omnipaque 350 Inj) 65 ml STK-MED ONCE IVCONTRAST Last administered on 09/01/17at 10:32; Start 09/01/17 at 10:32; Stop 09/01/17 at 10:33; Status DC Lorazepam (Ativan Inj) 1 mg ONCE ONCE IV PUSH Last administered on 09/01/17at 11:51; Start 09/01/17 at 11:00; Stop 09/02/17 at 09:55; Status DC Gadodiamide (Omniscan Pf Inj) 20 ml STK-MED ONCE IVCONTRAST Last administered on 09/01/17at 12:36; Start 09/01/17 at 12:36; Stop 09/01/17 at 12:37; Status DC Acyclovir Sodium 568 mg/Sodium Chloride 100 ml @ 100 mls/hr Q8H IV Last administered on 09/04/17at 09:39; Start 09/01/17 at 17:00 Ampicillin Sodium 1000 mg/Sodium Chloride 100 ml @ 400 mls/hr Q4H IV Last administered on 09/02/17at 07:39; Start 09/01/17 at 16:00; Stop 09/02/17 at 08:22 ; Status DC Vancomycin HCl 850 mg/Sodium Chloride 258.5 ml @ 250 mls/hr Q12H IV ; Start 04/11 at 18:00; Stop 09/01/17 at 22:08; Status DC Levetriacetam 100 ml @ 400 mls/hr Q12HR IV Last administered on 09/04/17at 08: 36; Start 09/01/17 at 21:00 Vancomycin HCl 850 mg/Sodium Chloride 258.5 ml @ 250 mls/hr Q12H IV Last administered on 09/02/17at 00:04; Start 09/01/17 at 22:00; Stop 09/02/17 at 08:22 ; Status DC Vancomycin HCl 1000 mg/Sodium Chloride 250 ml @ 250 mls/hr ONCE ONCE IV ; Start 09/02/17 at 09:45; Stop 09/02/17 at 10:44; Status UNV Pharmacy Profile Note 0 ml @ 0 mls/hr UNSCH OTHER ; Start 09/02/17 at 09:45 Vancomycin HCl 1000 mg/Sodium Chloride 250 ml @ 250 mls/hr Q24H IV Last administered on 09/03/17at 11:40; Start 09/02/17 at 12:00 Senna/Docusate Sodium (Franci-Colace) 2 tab BID PO Last administered on at 08:38; Start 09/02/17 at 21:00 Magnesium Hydroxide (Milk Of Magngurmeet Liq) 30 ml Q6H PRN PO CONSTIPATION; Start 09/02/17 at 12:15 Miscellaneous Information SPECIFIC LAB TO BE ... ONCE ONCE .XX ; Start 09/05 at 11:45; Stop 09/05/17 at 11:46 Acetaminophen (Tylenol) 650 mg Q8H PRN PO HEADACHE Last administered on at 23:02; Start 09/02/17 at 23:00 Potassium Bicarb/ Potassium Chloride (K-Lyte Cl Eff) 75 meq ONCE ONCE PO Last administered on 09/03/17at 13:02; Start 09/03/17 at 12:45; Stop 09/03/17 at 12:46; Status DC A/P Problem List: (1) Encephalopathy ICD Code: G93.40 - Encephalopathy, unspecified (2) CVA (cerebral vascular accident) ICD Code: I63.9 - Cerebral infarction, unspecified (3) UTI (urinary tract infection) ICD Code: N39.0 - Urinary tract infection, site not specified (4) Hypertension ICD Code: I10 - Essential (primary) hypertension (5) Hyperlipidemia ICD Code: E78.5 - Hyperlipidemia, unspecified (6) GERD (gastroesophageal reflux disease) ICD Code: K21.9 - Gastro-esophageal reflux disease without esophagitis (7) Vertigo ICD Code: R42 - Dizziness and giddiness (8) Hypokalemia ICD Code: E87.6 - Hypokalemia Assessment and Plan 1. Encephalopathy: MUCH IMPROVED acute episode of AMS noted by family, previously AA&Ox4 at baseline per Daughter. Neuro Checks. CT Head w/ no acute findings, images reviewed by me. Possibly compounded by UTI, continue w/ IV Rocephin. 2. CVA RULED OUT slurred speech/confusion noted at 3:30pm, outside [facility] window , previously aphasic, now able to say "yes". FOLLOWING COMMANDS NOW. CTA Head w / no truncation, 3mm calcified aneurysm right ICA, CTA Neck negative, images reviewed by me. IVF, PT/Speech Consult for eval/tx. Consult Neurology for further evaluation. MUCH IMPROVED FROM YESTERDAY AWAKE AND ALERT- JOKING AROUND--POSSIBLE BENADRYL/ UNISOM OVERDOSE UNINTENTIONALLY 3. UTI: U/a w/ UTI, follow up cultures, continue w/ IV Abx, IVF. ROCEPHIN AND VANCO- HYPOKALEMIA WILL REPLACE AGAIN Hypertension resume home medications Hyperlipidemia resume all medications DEMENTIA AM LABS PT, OT, and ST 4. DVT Prophylaxis: SCD/Teds AWAIT SENSITIVITIES ON CULTURES ON VANCO, ROCEPHIN AND ACYCLOVIR- COAG NEGATIVE STAPH- CONSULT ID 5. Social work for d/c planning as needed. Discharge Planning Pending neurological clearance May need to go to SNF at discharge Aleksander Smith DO Sep 04, 2017 11:04
[2017-09-04] MEDS: VANCOMYCIN 1,000 MG/NS 250 ML IV SCH ×2 (12:08)
--- NOTE | 2017-09-04 12:25 | MB ---
cc: Dionisio Cotter MD DATE OF CONSULT: 09/03/2017 REQUESTING PHYSICIAN: Dr. Smith. REASON FOR CONSULTATION: Coag negative Staph. Treatment recommendation. HISTORY OF PRESENT ILLNESS: This is a 76-year-old white female who was admitted to the hospital because of altered mental status. The patient presented to the emergency department on 08/31/2017 via Stroke-Alert. The patient was noted to have problems with speech and appeared disoriented. Her speech was noted to be slurred and the daughter tells me that she was having difficulty getting up from a couch. She was evaluated in the emergency department and workup proceeded. The patient's heart rate was 77 and the blood pressure was 142/67 when she presented. Her white count was normal. CT scan was performed and it did not show any sign of intracranial process. Workup so far includes positive urine culture with E. coli. Blood culture from 09/01 has Staph coagulase-negative in all 4 bottles. LP was performed and the cerebrospinal fluid has no growth in 48 hours. The cerebrospinal fluid cell count revealed 0 white cells and 0 red cells. She was started on acyclovir. HSV test on the cerebrospinal fluid is pending. The patient states she feels a lot better. Her speech is coherent. She has a little forgetfulness in trying to remember events and trying to get the correct words to express what she wants to say, but this occurred only on a few occasions during my interview. MRI of the brain yesterday showed interval development of T2 hyperintense fluid in the subarachnoid space, in the parietal and occipital lobes, which may represent either subarachnoid blood or proteinaceous exudate. No evidence of acute infarct or parenchymal hemorrhage was noted. MRI of the brain on 09/01 showed mild cerebral white matter disease, characteristic of chronic microvascular ischemic changes. CT of the chest showed no suspicion of pulmonary mass or acute airspace disease. A 2D echocardiogram revealed mild mitral annular calcification and trace mitral regurgitation. Mild aortic valve regurgitation. Mild tricuspid valve regurgitation. The patient has been febrile since admission. Her white blood cell count has remained normal since admission. The patient has not had any IV access prior to this event. She last had a steroid injection into the knee 2 months ago for osteoarthritis. Besides that, she has had no other instrumentation. PAST MEDICAL HISTORY: Hypertension, COPD, hyperlipidemia, history of appendectomy, history of hysterectomy. ALLERGIES: NO KNOWN DRUG ALLERGIES. MEDICATIONS: Vancomycin, ceftriaxone, acyclovir, Lasix, hydrochlorothiazide, Cozaar, Pravachol, Lopressor, Protonix, prednisone 2.5 milligrams by mouth daily, levetiracetam, potassium. SOCIAL HISTORY: Positive tobacco 1/2-1 pack a day. No alcohol. No illicit drugs. FAMILY HISTORY: Noncontributory. REVIEW OF SYSTEMS: CONSTITUTIONAL: No fevers or chills. HEAD, EARS, EYES, NOSE AND THROAT: Denies visual, blurring or diplopia. Positive for vertigo. No difficulty swallowing. CARDIOVASCULAR: No palpitation or chest pain. RESPIRATORY: No cough or shortness of breath. GASTROINTESTINAL: No nausea. Positive vomiting before admission. GENITOURINARY: No urgency, frequency or dysuria. HEMATOLOGIC: No easy bruising, no bleeding. No skin rash or itching. MUSCULOSKELETAL: No muscle aches. No pain. ENDOCRINE: Denies polyuria. NEUROLOGIC: Problems with speech being slurred prior to admission. PSYCHIATRIC: No mood changes. PHYSICAL EXAMINATION: GENERAL: This is a well developed female who is in no acute distress. She is awake, alert and oriented. VITAL SIGNS: Temperature 97.8, blood pressure 155/78, respirations 18, heart rate 85. HEENT: Head atraumatic. Extraocular movements grossly intact. Pupils reactive to light. No icterus. Oropharynx has moist mucosa, without visible lesions. NECK: Supple, without adenopathy. LUNGS: Clear breath sounds bilateral. Slight rales at the bases. CARDIOVASCULAR: Regular rate and rhythm, without murmurs, rubs or gallops. ABDOMEN: Bowel sounds present, soft, no tenderness appreciated. Her bowel sounds are diminished, however. RECTAL: Not performed. EXTREMITIES: No clubbing, cyanosis or edema. SKIN: No rash. NEUROLOGIC: The patient is alert and oriented. No gross focal findings. PSYCHIATRIC: The patient is calm and cooperative. LABORATORY DATA: WBC 7.5, platelets 243, hemoglobin 13.1. Differential, 63% neutrophils and 21% lymphocytes, 9% monocytes, 4% eosinophils, creatinine 1.01, BUN 18. Sodium 144. Liver function tests normal. IMPRESSION: 1. Positive blood culture. Questionable etiology. The patient has had no recent instrumentation to suggest a possible portal of entry for the Gram negative bacteria in the blood. 2. Urinary tract infection due to Escherichia coli. 3. Altered mental status, which has improved. Cerebrospinal fluid unremarkable as far as the cell counts are concerned, but the cultures are not yet finalized. However, no clear evidence to suggest meningitis with 0 white count in the spinal fluid. RECOMMENDATIONS: 1. Continue vancomycin for the Staph coagulase-negative. 2. Repeat the blood cultures. 3. Follow the cerebrospinal fluid culture. 4. Continue ceftriaxone for UTI. 5. Monitor the clinical status. Thank you for this consultation. I will follow the patient's progress along with you and will make further recommendations upon followup. MD ABDON Awad/JOO , 06:32 PM , 11:12 PM ANNA
--- NOTE | 2017-09-04 14:59 | HHI.IDPN ---
Note Infectious Disease Note Patient is up in a chair. She is alert and oriented. Afebrile. Denies chills. Denies nausea vomiting. Denies headache. 76-year-old white female who was admitted to the hospital because of altered mental status. PAST MEDICAL HISTORY: Hypertension, COPD, hyperlipidemia, history of appendectomy, history of hysterectomy. ALLERGIES: NO KNOWN DRUG ALLERGIES. MEDICATIONS: Current Medications Medications (Trade) Dose Ordered Sig/Valdez Route PRN Reason Start Time Stop Time Status Last Admin Dose Admin Sodium Chloride (NS Flush) 2 ml BID IV FLUSH 09/01/17 09:00 09/04/17 08:38 Sodium Chloride (NS Flush) 2 ml UNSCH PRN IV FLUSH FLUSH AFTER USING IV ACCESS 09/01/17 00:30 Enalaprilat (Vasotec Inj) 1.25 mg Q4H PRN IV PUSH For SBP > 220 or DBP > 120 09/01/17 00:30 Ondansetron HCl (Zofran Inj) 4 mg Q6HR PRN IV PUSH NAUSEA OR VOMITING 09/01/17 04:00 09/01/17 04:07 Furosemide (Lasix) 40 mg DAILY PO 09/01/17 09:00 09/04/17 08:38 Hydrochlorothiazide (Microzide) 12.5 mg DAILY PO 09/01/17 09:00 09/04/17 08:37 Losartan Potassium (Cozaar) 100 mg DAILY PO 09/01/17 09:00 09/04/17 08:38 Pravastatin Sodium (Pravachol) 20 mg DAILY PO 09/01/17 09:00 09/04/17 08:37 Metoprolol Tartrate (Lopressor) 100 mg BID PO 09/01/17 09:00 09/04/17 08:37 Pantoprazole Sodium (Protonix) 20 mg DAILY PO 09/01/17 09:00 09/04/17 08:37 Prednisone (Deltasone) 2.5 mg DAILY PO 09/01/17 09:00 09/04/17 08:38 Ceftriaxone Sodium 1000 mg/ Sodium Chloride 100 ml @ 200 mls/hr Q24H IV 09/01/17 09:00 09/04/17 10:37 Potassium Bicarb/ Potassium Chloride (K-Lyte Cl Eff) 25 meq DAILY PO 09/02/17 09:00 09/04/17 08:38 Acyclovir Sodium 568 mg/Sodium Chloride 100 ml @ 100 mls/hr Q8H IV 09/01/17 17:00 09/04/17 09:39 Levetriacetam 100 ml @ 400 mls/hr Q12HR IV 09/01/17 21:00 09/04/17 08:36 Pharmacy Profile Note 0 ml @ 0 mls/hr UNSCH OTHER 09/02/17 09:45 Vancomycin HCl 1000 mg/Sodium Chloride 250 ml @ 250 mls/hr Q24H IV 09/02/17 12:00 09/04/17 12:08 Senna/Docusate Sodium (Franci-Colace) 2 tab BID PO 09/02/17 21:00 09/04/17 08:38 Magnesium Hydroxide (Milk Of [place] Liq) 30 ml Q6H PRN PO CONSTIPATION 09/02/17 12:15 Miscellaneous Information SPECIFIC LAB TO BE SIMONE... ONCE ONCE .XX 09/05/17 11:45 09/05/17 11:46 Acetaminophen (Tylenol) 650 mg Q8H PRN PO HEADACHE 09/02/17 23:00 09/02/17 23:02 SOCIAL HISTORY: Positive tobacco 1/2-1 pack a day. No alcohol. No illicit drugs. OBJECTIVE: Vital Signs Date Time Temp Pulse Resp B/P (MAP) Pulse Ox O2 Delivery O2 Flow Rate FiO2 09/04/17 11:47 98.7 81 20 131/95 (107) 96 09/04/17 10:41 85 09/04/17 07:40 98.0 84 19 141/70 (93) 93 09/04/17 05:47 98.5 80 21 144/68 (93) 92 09/04/17 01:16 97.9 82 21 155/68 (97) 95 09/03/17 22:05 98.8 93 22 142/67 (92) 94 09/03/17 17:19 97 Nasal Cannula 2.00 09/03/17 16:40 85 09/03/17 16:00 97.8 85 18 155/78 (103) 95 Laboratory Tests Test 09/03/17 06:10 09/04/17 05:40 White Blood Count 7.5 TH/MM3 9.5 TH/MM3 Red Blood Count 4.21 MIL/MM3 4.20 MIL/MM3 Hemoglobin 13.1 GM/DL 13.2 GM/DL Hematocrit 38.3 % 38.6 % Mean Corpuscular Volume 90.9 FL 91.7 FL Mean Corpuscular Hemoglobin 31.0 PG 31.3 PG Mean Corpuscular Hemoglobin Concent 34.1 % 34.2 % Red Cell Distribution Width 13.5 % 13.5 % Platelet Count 243 TH/MM3 283 TH/MM3 Mean Platelet Volume 7.0 FL 7.4 FL Neutrophils (%) (Auto) 63.9 % 69.4 % Lymphocytes (%) (Auto) 21.4 % 17.9 % Monocytes (%) (Auto) 9.8 % 9.2 % Eosinophils (%) (Auto) 4.1 % 2.9 % Basophils (%) (Auto) 0.8 % 0.6 % Neutrophils # (Auto) 4.8 TH/MM3 6.6 TH/MM3 Lymphocytes # (Auto) 1.6 TH/MM3 1.7 TH/MM3 Monocytes # (Auto) 0.7 TH/MM3 0.9 TH/MM3 Eosinophils # (Auto) 0.3 TH/MM3 0.3 TH/MM3 Basophils # (Auto) 0.1 TH/MM3 0.1 TH/MM3 CBC Comment DIFF FINAL DIFF FINAL Differential Comment Laboratory Tests Test 09/03/17 06:10 09/04/17 05:40 Blood Urea Nitrogen 18 MG/DL 20 MG/DL Creatinine 1.01 MG/DL 1.11 MG/DL Random Glucose 86 MG/DL 96 MG/DL Total Protein 6.7 GM/DL 6.8 GM/DL Albumin 3.3 GM/DL 3.3 GM/DL Calcium Level 9.8 MG/DL 9.7 MG/DL Phosphorus Level 3.7 MG/DL 3.5 MG/DL Magnesium Level 1.8 MG/DL 1.7 MG/DL Alkaline Phosphatase 39 U/L 42 U/L Aspartate Amino Transf (AST/SGOT) 18 U/L 16 U/L Alanine Aminotransferase (ALT/SGPT) 16 U/L 16 U/L Total Bilirubin 0.8 MG/DL 0.7 MG/DL Sodium Level 144 MEQ/L 145 MEQ/L Potassium Level 3.3 MEQ/L 3.4 MEQ/L Chloride Level 106 MEQ/L 105 MEQ/L Carbon Dioxide Level 28.1 MEQ/L 31.4 MEQ/L Anion Gap 10 MEQ/L 9 MEQ/L Estimat Glomerular Filtration Rate 54 ML/MIN 48 ML/MIN IMAGING: Brain MRI 09/02/17 0000 Signed Impressions: Service Date/Time: Saturday, September 02, 2017 12:49 - CONCLUSION: 1. Interval development of T2 hyperintense fluid in the subarachnoid space in the parietal and occipital lobes which may represent either subarachnoid blood or proteinaceous exudate. 2. No evidence of acute infarct or parenchymal hemorrhage. 3. No evidence of developing intra-axial edema. Carlin Walters MD Microbiology Date/Time Source Procedure Growth Status 09/03/17 20:00 Blood Peripheral Aerobic Blood Culture - Preliminary NO GROWTH IN 1 DAY Resulted 09/03/17 20:00 Blood Peripheral Anaerobic Blood Culture - Preliminary NO GROWTH IN 1 DAY Resulted 09/03/17 19:50 Blood Peripheral Aerobic Blood Culture - Preliminary NO GROWTH IN 1 DAY Resulted 09/03/17 19:50 Blood Peripheral Anaerobic Blood Culture - Preliminary NO GROWTH IN 1 DAY Resulted 09/01/17 19:07 Cerebral Spinal Fluid Lumbar Puncture Fungal Smear - Final NO FUNGAL ELEMENTS SEEN. Resulted 09/01/17 19:07 Cerebral Spinal Fluid Lumbar Puncture Fungal Culture Pending Resulted 09/01/17 19:07 Cerebral Spinal Fluid Lumbar Puncture Acid Fast Stain - Final NO ACID FAST BACILLI SEEN Resulted 09/01/17 19:07 Cerebral Spinal Fluid Lumbar Puncture Mycobacterial Culture Pending Resulted 09/01/17 19:07 Cerebral Spinal Fluid Lumbar Puncture Gram Stain - Final Complete 09/01/17 19:07 Cerebral Spinal Fluid Lumbar Puncture CSF Culture - Final NO GROWTH IN 72 HOURS Complete PHYSICAL EXAMINATION: GENERAL: No acute distress. Awake, alert and oriented. HEENT: Head atraumatic. Extraocular movements grossly intact. Pupils reactive to light. No icterus. Oropharynx has moist mucosa, without visible lesions. NECK: Supple, without adenopathy. LUNGS: Clear breath sounds. CARDIOVASCULAR: Regular rate and rhythm, without murmurs, rubs or gallops. ABDOMEN: Bowel sounds present, soft, no tenderness appreciated. Her bowel sounds are diminished, however. EXTREMITIES: No clubbing, cyanosis or edema. SKIN: No rash. NEUROLOGIC: The patient is alert and oriented. No gross focal findings. PSYCHIATRIC: Calm and cooperative. IMPRESSION: 1. Positive blood culture. Questionable etiology. The patient has had no recent instrumentation to suggest a possible portal of entry for the Gram positive bacteria in the blood. 2. Urinary tract infection due to Escherichia coli. 3. Altered mental status, which has improved significantly. Cerebrospinal fluid unremarkable as far as the cell counts are concerned, but the cultures are not yet finalized. However, no clear evidence to suggest meningitis with 0 white count in the spinal fluid. HSV negative. RECOMMENDATIONS: 1. Continue vancomycin for the Staph coagulase-negative. If repeat blood cultures negative 3 days Vancomycin can be discontinued. 2. Follow repeat the blood cultures. 3. Follow the cerebrospinal fluid culture. 4. Stop ceftriaxone. 5. Stop Acyclovir. 6. Monitor the clinical status. Dionisio Cotter MD Sep 04, 2017 14:59
[2017-09-04] MEDS ORDERED: GADODIAMIDE PF 287 MG/ML 10 ML VIAL (for RAD MRI) IVCONTRAST ONE (15:51)
--- NOTE | 2017-09-04 16:20 | RADRPT ---
EXAM DATE/TIME: 09/04/2017 15:32 [facility] COMPARISON: MRI BRAIN W/O CONTRAST, September 02, 2017, 12:49. MRI BRAIN W & W/O CONTRAST, September 01, 2017, 12:09. INDICATIONS : Abnormal prior MRI. CONTRAST: 10 cc Omniscan (gadodiamide) IV MEDICAL HISTORY : Hyperthyroidism. Congestive heart failure. SURGICAL HISTORY : Appendectomy. Hysterectomy. ENCOUNTER: Subsequent ACUITY: 4-6 days PAIN SCORE: 0/10 LOCATION: cranial TECHNIQUE: Multiplanar, multisequence MRI of the brain was performed both prior to and following the administrat ion of paramagnetic contrast. FINDINGS: Near interval resolution of previously noted T2 hyperintense fluid in the subarachnoid space througho ut the parietal and occipital lobes. There is persistent subtle focal hyperintensity within vertebral horns of the lateral ventricles bilaterally. Again, no diffusion abnormality is noted in this region . On postcontrast images there is no evidence for significant abnormal meningeal enhancement. No sign ificant evidence for blood products on DWI images. Ventricles are symmetrical and stable without evid ence for hydrocephalus. Remainder of the exam is unchanged. CONCLUSION: 1. Near interval resolution of previously noted T2 hyperintense subarachnoid fluid in the parietal an d occipital lobes. There is no residual restricted diffusion, meningeal enhancement or significant bl ood products. Jordan Epstein MD on September 04, 2017 at 16:07 Board Certified Radiologist. This report was verified electronically.
[2017-09-04 19:25] LABS: CSF CRYPTOCOCCUS AG CONF ND (NOT DETECTD)
[2017-09-05] VITALS (9 sets, daily range): BP systolic 105–147; BP diastolic 59–78; PULSE 73–92; RESP 18–20; TEMP 97.7–98.8; O2SAT 95–100
--- NOTE | 2017-09-05 07:40 | HHI.PR ---
Subjective Remarks slept from2-6 am Objective Vital Signs Date Time Temp Pulse Resp B/P (MAP) Pulse Ox O2 Delivery O2 Flow Rate FiO2 09/05/17 04:00 97.8 90 18 147/78 (101) 99 09/04/17 20:00 99.3 88 20 142/78 (99) 96 09/04/17 18:30 84 09/04/17 15:48 98.5 82 20 136/88 (104) 94 09/04/17 11:47 98.7 81 20 131/95 (107) 96 09/04/17 10:41 85 09/04/17 07:40 98.0 84 19 141/70 (93) 93 I/O 09/04/17 09/04/17 09/04/17 09/05/17 09/05/17 09/05/17 07:00 15:00 23:00 07:00 15:00 23:00 Intake Total 240 ml 240 ml Balance 240 ml 240 ml Intake Oral 240 ml 240 ml # Voids 1 2 1 2 1 # Bowel Movements 1 2 1 0 Result Diagram: 09/04/17 0540 09/04/17 0540 Objective Remarks awake alert face sym moves all follows commands well speech clear knows month and yr vff moves all well Assessment and Plan Assessment and Plan imp LP neg eeg some mild r changes +/- sharps on keppra blood and urine cx pos plan hsv pcr neg off acyclovir i dw med team watch renal fx daily on that ivf keppra change to po mri the posterior fluid resolved some hallucinations yest could have been sleep deprivation or keppra will watch ? dc soon? Brock Laughlin MD Sep 05, 2017 07:40
[2017-09-05 07:42] LABS: AUTOMATED NEUTROPHIL # 6.5 TH/MM3 (1.8-7.7); BASOPHIL # 0.1 TH/MM3 (0-0.2); BASOPHIL % 0.7 % (0.0-2.0); EOSINOPHIL # 0.3 TH/MM3 (0-0.4); EOSINOPHIL % 3.1 % (0.0-4.0); HEMATOCRIT 40.1 % (35.0-46.0); HEMOGLOBIN 13.6 GM/DL (11.6-15.3); LYMPH % 19.7 % (9.0-44.0); LYMPHOCYTE # 1.9 TH/MM3 (1.0-4.8); MEAN CELL VOLUME 90.3 FL (80.0-100.0); MEAN CORPUSCULAR HEMOGLOBIN 30.6 PG (27.0-34.0); MEAN CORPUSCULAR HGB CONC 33.9 % (32.0-36.0); MEAN PLATELET VOLUME 7.3 FL (7.0-11.0); MONO % 9.4 % (0.0-8.0); MONOCYTE # 0.9 TH/MM3 (0-0.9); NEUT % 67.1 % (16.0-70.0); PLATELET COUNT 298 TH/MM3 (150-450); RED BLOOD COUNT 4.44 MIL/MM3 (4.00-5.30); RED CELL DISTRIBUTION WIDTH 13.6 % (11.6-17.2); WHITE BLOOD COUNT 9.6 TH/MM3 (4.0-11.0)
[2017-09-05 07:51] LABS: ALBUMIN 3.3 GM/DL (3.4-5.0); AST (GOT) 16 U/L (15-37); BLOOD UREA NITROGEN 19 MG/DL (7-18); CALCIUM 10.2 MG/DL (8.5-10.1); CHLORIDE 102 MEQ/L (98-107); CREATININE 1.08 MG/DL (0.50-1.00); GLOMERULAR FILTRATION RATE 50 ML/MIN (>89); GLUCOSE,RANDOM 109 MG/DL (74-106); MAGNESIUM 1.6 MG/DL (1.5-2.5); PHOSPHORUS 4.4 MG/DL (2.5-4.9); SODIUM (NA) 143 MEQ/L (136-145)
[2017-09-05 07:56] LABS: ALKALINE PHOSPHATASE 46 U/L (45-117); ALT (GPT) 17 U/L (10-53); TOTAL BILIRUBIN ADULT 0.7 MG/DL (0.2-1.0); TOTAL PROTEIN 7.1 GM/DL (6.4-8.2)
[2017-09-05] MEDS: PANTOPRAZOLE SOD 20 MG DELAYED RELEASE TAB PO SCH (09:09)
[2017-09-05] MEDS: FUROSEMIDE 40 MG TAB PO SCH (09:09)
[2017-09-05] MEDS: LOSARTAN 50 MG TAB PO SCH (09:09)
[2017-09-05] MEDS: HYDROCHLOROTHIAZIDE 12.5 MG CAP PO SCH (09:09)
[2017-09-05] MEDS: levETIRAcetam 500 MG TAB PO SCH ×2 (09:09→21:40)
[2017-09-05] MEDS: predniSONE 5 MG TAB PO SCH (09:10)
[2017-09-05] MEDS: POTASSIUM CHLORIDE 25 MEQ EFFERVESCENT TAB PO SCH (09:10)
[2017-09-05] MEDS: PRAVASTATIN SOD 20 MG TAB PO SCH (09:11)
[2017-09-05] MEDS: METOPROLOL TARTRATE 100 MG TAB PO SCH ×2 (09:11→21:00)
[2017-09-05] MEDS: SODIUM CHLORIDE 0.9% FLUSH 10 ML FLUSH IV FLUSH SCH ×2 (09:11→21:40)
[2017-09-05] MEDS: DOCUSATE SODIUM 50 MG/SENNA 8.6 MG TAB PO SCH ×2 (09:11→21:00)
--- NOTE | 2017-09-05 10:50 | HHI.PR ---
Subjective Remarks This is a 76-year-old female with a PMH of HTN, Hyperlipidemia, COPD and Tobacco Abuse who is brought to the ER by EMS secondary to AMS, Stroke Alert initiated in field prior to arrival. Pt unable to provide any history as she is aphasic, not following commands. Per Daughter, pt is AA&Ox4 at baseline, ambulates without difficulty. Today pt noted to be confused, not making sense, slurring speech at approx 3:30pm. On arrival, BP 142/67, HR 77, O2 sat 97% on 2L NC, Afebrile. CBC unremarkable. Chemistry unremarkable with the. GFR 59. Troponin negative. INR 1.2. CXR with no focal infiltrates, 1.8 cm opacity right perihilar region, cannot exclude mass. CT Head negative. 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 CTA Neck negative. S/p Zosyn in ER. 3-10 patient remains totally aphasic Not able to follow any commands. Past swallow eval with pured diet and thickened liquids We will resume her home medications Continue on aspirin and statin Await neurological evaluation Physical therapy, occupational therapy, and speech therapy evaluations 3- POSITIVE CULTURES PENDING SENSITIVITIES CONTINUE ROCEPHIN VANCOMYCIN AND ACYCLOVIR DW NEUROLOGY MOVED TO NEURO FLOOR MUCH MORE ALERT TODAY TALKATIVE- COOPERATIVE DW RN AND PT AND CM AM LABS 3- CONSULT ID REGARDING COAG NEG STAPH MUCH MORE TALKATIVE AND ALERT PROBABLY UNISOM OVERDOSE UNINTENTIONALLY UTI AND COAG NEGATIVE STAPH MUCH IMPROVED DOES NOT WANT TO GO TO REHAB DW FAMILY AND RN AND PT AND CASE MANAGEMENT 09-04 THINKS SHE SAW ID TODAY DW RN AND PT TO HAVE REPEAT MRI TODAY CONTINUE PT AND OT MAY NEED SNF AT [place] -14 AWAIT ID CLEARANCE MEDS ADJUSTED BY ID ACYCLOVIR STOPPED, ROCEPHIN STOPPED SWITCH TO PO MEDS FOR KEPPRA DOES NOT WANT TO GO TO REHAB EVEN THOUGH PT AND OT RECOMMEND IT AM LABS Objective Vitals Vital Signs Date Time Temp Pulse Resp B/P (MAP) Pulse Ox O2 Delivery O2 Flow Rate FiO2 09/05/17 09:51 75 09/05/17 07:42 98.6 82 18 133/63 (86) 95 09/05/17 04:00 97.8 90 18 147/78 (101) 99 09/04/17 20:00 99.3 88 20 142/78 (99) 96 09/04/17 18:30 84 09/04/17 15:48 98.5 82 20 136/88 (104) 94 09/04/17 11:47 98.7 81 20 131/95 (107) 96 I/O 09/04/17 09/04/17 09/04/17 09/05/17 09/05/17 09/05/17 07:00 15:00 23:00 07:00 15:00 23:00 Intake Total 240 ml 240 ml Balance 240 ml 240 ml Intake Oral 240 ml 240 ml # Voids 1 2 1 2 1 # Bowel Movements 1 2 1 0 Result Diagram: 09/05/17 0652 09/05/17 0652 Other Results Laboratory Tests Test 09/03/17 06:10 09/04/17 05:40 09/05/17 06:52 White Blood Count 7.5 TH/MM3 9.5 TH/MM3 9.6 TH/MM3 Red Blood Count 4.21 MIL/MM3 4.20 MIL/MM3 4.44 MIL/MM3 Hemoglobin 13.1 GM/DL 13.2 GM/DL 13.6 GM/DL Hematocrit 38.3 % 38.6 % 40.1 % Mean Corpuscular Volume 90.9 FL 91.7 FL 90.3 FL Mean Corpuscular Hemoglobin 31.0 PG 31.3 PG 30.6 PG Mean Corpuscular Hemoglobin Concent 34.1 % 34.2 % 33.9 % Red Cell Distribution Width 13.5 % 13.5 % 13.6 % Platelet Count 243 TH/MM3 283 TH/MM3 298 TH/MM3 Mean Platelet Volume 7.0 FL 7.4 FL 7.3 FL Neutrophils (%) (Auto) 63.9 % 69.4 % 67.1 % Lymphocytes (%) (Auto) 21.4 % 17.9 % 19.7 % Monocytes (%) (Auto) 9.8 % 9.2 % 9.4 % Eosinophils (%) (Auto) 4.1 % 2.9 % 3.1 % Basophils (%) (Auto) 0.8 % 0.6 % 0.7 % Neutrophils # (Auto) 4.8 TH/MM3 6.6 TH/MM3 6.5 TH/MM3 Lymphocytes # (Auto) 1.6 TH/MM3 1.7 TH/MM3 1.9 TH/MM3 Monocytes # (Auto) 0.7 TH/MM3 0.9 TH/MM3 0.9 TH/MM3 Eosinophils # (Auto) 0.3 TH/MM3 0.3 TH/MM3 0.3 TH/MM3 Basophils # (Auto) 0.1 TH/MM3 0.1 TH/MM3 0.1 TH/MM3 CBC Comment DIFF FINAL DIFF FINAL DIFF FINAL Differential Comment Blood Urea Nitrogen 18 MG/DL 20 MG/DL 19 MG/DL Creatinine 1.01 MG/DL 1.11 MG/DL 1.08 MG/DL Random Glucose 86 MG/DL 96 MG/DL 109 MG/DL Total Protein 6.7 GM/DL 6.8 GM/DL 7.1 GM/DL Albumin 3.3 GM/DL 3.3 GM/DL 3.3 GM/DL Calcium Level 9.8 MG/DL 9.7 MG/DL 10.2 MG/DL Phosphorus Level 3.7 MG/DL 3.5 MG/DL 4.4 MG/DL Magnesium Level 1.8 MG/DL 1.7 MG/DL 1.6 MG/DL Alkaline Phosphatase 39 U/L 42 U/L 46 U/L Aspartate Amino Transf (AST/SGOT) 18 U/L 16 U/L 16 U/L Alanine Aminotransferase (ALT/SGPT) 16 U/L 16 U/L 17 U/L Total Bilirubin 0.8 MG/DL 0.7 MG/DL 0.7 MG/DL Sodium Level 144 MEQ/L 145 MEQ/L 143 MEQ/L Potassium Level 3.3 MEQ/L 3.4 MEQ/L 3.5 MEQ/L Chloride Level 106 MEQ/L 105 MEQ/L 102 MEQ/L Carbon Dioxide Level 28.1 MEQ/L 31.4 MEQ/L 33.0 MEQ/L Anion Gap 10 MEQ/L 9 MEQ/L 8 MEQ/L Estimat Glomerular Filtration Rate 54 ML/MIN 48 ML/MIN 50 ML/MIN Imaging Last Impressions Brain MRI 09/04/17 0600 Signed Impressions: Service Date/Time: Monday, September 04, 2017 15:32 - CONCLUSION: 1. Near interval resolution of previously noted T2 hyperintense subarachnoid fluid in the parietal and occipital lobes. There is no residual restricted diffusion, meningeal enhancement or significant blood products. Jordan Epstein MD Neck Magnetic Resonance Angiography 09/01/17 0000 Signed Impressions: Service Date/Time: Friday, September 01, 2017 12:09 - CONCLUSION: 1. No evidence of significant stenosis in the extracranial carotid and vertebral arteries. 2. Improved visualization of the intracranial vessels following administration of contrast compared to nonenhanced MRA. There is no evidence of distal left vertebral artery stenosis or focal areas of [id number] narrowing in the proximal MCAs. Carlin Walters MD Lumbar Puncture Fluoroscopy 09/01/17 Signed Impressions: Service Date/Time: Friday, September 01, 2017 19:14 - CONCLUSION: Uncomplicated fluoroscopically guided lumbar puncture. Gordon Rodriguez Jr., MD Head Magnetic Resonance Angiography 09/01/17 Signed Impressions: Service Date/Time: Friday, September 01, 2017 12:09 - CONCLUSION: 1. Suboptimal visualization of the intracranial vessels do to motion artifact. 2. Irregularity is evident throughout the middle and posterior cerebral arteries. 3. Focal areas of diminished flow related enhancement which may represent focal stenoses however considering the amount of background motion these may be artifactual. Carlin Walters MD Chest CT 09/01/17 Signed Impressions: Service Date/Time: Friday, September 01, 2017 10:13 - CONCLUSION: 1. 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 2. No suspicious pulmonary mass or acute airspace disease. 3. Moderate cardiomegaly with calcific described disease of the coronary arteries. 4. Simple left renal cyst. 5. Significant bilateral shoulder arthropathy. Carlin Walters MD Neck CTA [id number] Signed Impressions: Service Date/Time: Thursday, August 31, 2017 23:08 - CONCLUSION: Negative CTA of the carotids. Gordon Huerta MD Head CTA [id number] Signed Impressions: Service Date/Time: Thursday, August 31, 2017 23:08 - CONCLUSION: No evidence of vessel truncation. 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 Gordon Huerta MD Head CT [id number] Signed Impressions: Service Date/Time: Thursday, August 31, 2017 22:18 - CONCLUSION: 1. No acute findings in the brain. Gordon Huerta MD Chest X-Ray [id number] Signed Impressions: Service Date/Time: Thursday, August 31, 2017 22:24 - CONCLUSION: 1. No focal infiltrates seen. 2. 1.8 cm focal opacity right perihilar region of uncertain significance; cannot exclude a focal mass. Gordon Huerta MD Objective Remarks GENERAL: She is awake and alert ORIENTED X3 MUCH IMPROVED- TALKATIVE AND COOPERATIVE SKIN: Warm and dry. HEAD: Atraumatic. Normocephalic. EYES: Pupils equal and round. No scleral icterus. No injection or drainage. Extraocular muscles appear grossly intact ENT: No nasal bleeding or discharge. Mucous membranes pink and moist. Tongue is midline NECK: Trachea midline. No JVD. Supple CARDIOVASCULAR: Regular rate and rhythm. S1-S2 no S3 or S4 NO HEAVE OR THRILL OR RUB RESPIRATORY: No accessory muscle use. Clear to auscultation. Breath sounds equal bilaterally. GASTROINTESTINAL: Abdomen soft, non-tender, nondistended. Hepatic and splenic margins not palpable. MUSCULOSKELETAL: Extremities without clubbing, cyanosis, or edema. No obvious deformities. NEUROLOGICAL: Awake and alert. No obvious cranial nerve deficits. Motor grossly within normal limits. Five out of 5 muscle strength in the arms and legs. GOOD SPEECH PSYCHIATRIC: Appropriate mood and affect; insight and judgment ARE NORMAL- NO LONGER APHASIC-RESOLVED Procedures LUMBAR PUNCTURE Medications and IVs Current Medications Sodium Chloride (NS Flush) 2 ml UNSCH PRN IVF FLUSH AFTER USING IV ACCESS; Start 08/31/17 at 22:15; Stop 09/01/17 at 00:39; Status DC Ondansetron HCl (Zofran Inj) 4 mg STK-MED ONCE .ROUTE ; Start 08/31/17 at 22:27; Stop 08/31/17 at 22:28; Status DC Ondansetron HCl (Zofran Inj) 4 mg ONCE ONCE IV PUSH Last administered on at 22:51; Start 08/31/17 at 22:45; Stop 08/31/17 at 22:46; Status DC Aspirin (Aspirin) 325 mg ONCE ONCE PO Last administered on 08/31/17at 23:30; Start 08/31/17 at 23:00; Stop 09/01/17 at 14:02; Status DC Iohexol (Omnipaque 350 Inj) 75 ml STK-MED ONCE IVCONTRAST Last administered on 08/31/17at 23:29; Start 08/31/17 at 23:29; Stop 08/31/17 at 23:30; Status DC Piperacillin Sod/ Tazobactam Sod 100 ml @ 200 mls/hr ONCE ONCE IV Last administered on 09/01/17at 00:23; Start 08/31/17 at 23:45; Stop 09/01/17 at 00:14 ; Status DC Sodium Chloride (NS Flush) 2 ml BID IV FLUSH Last administered on 09/05/17at 09: 11; Start 09/01/17 at 09:00 Sodium Chloride (NS Flush) 2 ml UNSCH PRN IV FLUSH FLUSH AFTER USING IV ACCESS ; Start 09/01/17 at 00:30 Enalaprilat (Vasotec Inj) 1.25 mg Q4H PRN IV PUSH For SBP > 220 or DBP > 120; Start 09/01/17 at 00:30 Aspirin (Aspirin Supp) 300 mg DAILY RECTAL Last administered on 09/01/17at 07:44 ; Start 09/01/17 at 09:00; Stop 09/01/17 at 14:02; Status DC Insulin Aspart (NovoLOG SUPPLEMENTAL SCALE) 1 ACHS SQ ; Start 09/01/17 at 08:00 ; Stop 09/03/17 at 12:22; Status DC Dextrose (D50w (Vial) Inj) 50 ml UNSCH PRN IV PUSH HYPOGLYCEMIA-SEE COMMENTS; Start 09/01/17 at 00:30; Stop 09/03/17 at 12:22; Status DC Glucagon (Glucagon Inj) 1 mg UNSCH PRN OTHER HYPOGLYCEMIA-SEE COMMENTS; Start 09/01/17 at 00:30; Stop 09/03/17 at 12:22; Status DC Ondansetron HCl (Zofran Inj) 4 mg Q6HR PRN IV PUSH NAUSEA OR VOMITING Last administered on 09/01/17at 04:07; Start 09/01/17 at 04:00 Aspirin (Aspirin Chew) 81 mg DAILY CHEW ; Start 09/01/17 at 09:00; Stop at 09:11; Status DC Furosemide (Lasix) 40 mg DAILY PO Last administered on 09/05/17at 09:09; Start 09/01/17 at 09:00 Hydrochlorothiazide (Microzide) 12.5 mg DAILY PO Last administered on at 09:09; Start 09/01/17 at 09:00 Losartan Potassium (Cozaar) 100 mg DAILY PO Last administered on 09/05/17at 09: 09; Start 09/01/17 at 09:00 Pravastatin Sodium (Pravachol) 20 mg DAILY PO Last administered on 09/05/17at 09 :11; Start 09/01/17 at 09:00 Meclizine HCl (Antivert) 12.5 mg Q8H PRN PO VERTIGO; Start 09/01/17 at 09:00; Stop 09/01/17 at 14:02; Status DC Metoprolol Tartrate (Lopressor) 100 mg BID PO Last administered on 09/05/17at 09 :11; Start 09/01/17 at 09:00 Pantoprazole Sodium (Protonix) 20 mg DAILY PO Last administered on 09/05/17at 09 :09; Start 09/01/17 at 09:00 Prednisone (Deltasone) 2.5 mg DAILY PO Last administered on 09/05/17at 09:10; Start 09/01/17 at 09:00 Aspirin (Aspirin) 325 mg DAILY PO ; Start 09/01/17 at 09:15; Stop 09/01/17 at 14 :02; Status DC Ceftriaxone Sodium 1000 mg/ Sodium Chloride 100 ml @ 200 mls/hr Q24H IV Last administered on 09/04/17at 10:37; Start 09/01/17 at 09:00; Stop 09/04/17 at 15:00 ; Status DC Potassium Bicarb/ Potassium Chloride (K-Lyte Cl Eff) 50 meq ONCE ONCE PO ; Start 09/01/17 at 09:15; Stop 09/01/17 at 09:46; Status DC Potassium Bicarb/ Potassium Chloride (K-Lyte Cl Eff) 25 meq DAILY PO Last administered on 09/05/17at 09:10; Start 09/02/17 at 09:00 Potassium Bicarb/ Potassium Chloride (K-Lyte Cl Eff) 50 meq ONCE ONCE PO ; Start 09/01/17 at 09:15; Stop 09/01/17 at 09:16; Status UNV Potassium Bicarb/ Potassium Chloride (K-Lyte Cl Eff) 25 meq DAILY PO ; Start at 09:00; Status UNV Iohexol (Omnipaque 350 Inj) 65 ml STK-MED ONCE IVCONTRAST Last administered on 09/01/17at 10:32; Start 09/01/17 at 10:32; Stop 09/01/17 at 10:33; Status DC Lorazepam (Ativan Inj) 1 mg ONCE ONCE IV PUSH Last administered on 09/01/17at 11:51; Start 09/01/17 at 11:00; Stop 09/02/17 at 09:55; Status DC Gadodiamide (Omniscan Pf Inj) 20 ml STK-MED ONCE IVCONTRAST Last administered on 09/01/17at 12:36; Start 09/01/17 at 12:36; Stop 09/01/17 at 12:37; Status DC Acyclovir Sodium 568 mg/Sodium Chloride 100 ml @ 100 mls/hr Q8H IV Last administered on 09/04/17at 09:39; Start 09/01/17 at 17:00; Stop 09/04/17 at 14:51 ; Status DC Ampicillin Sodium 1000 mg/Sodium Chloride 100 ml @ 400 mls/hr Q4H IV Last administered on 09/02/17at 07:39; Start 09/01/17 at 16:00; Stop 09/02/17 at 08:22 ; Status DC Vancomycin HCl 850 mg/Sodium Chloride 258.5 ml @ 250 mls/hr Q12H IV ; Start 04/11 at 18:00; Stop 09/01/17 at 22:08; Status DC Levetriacetam 100 ml @ 400 mls/hr Q12HR IV Last administered on 09/04/17at 21: 57; Start 09/01/17 at 21:00; Stop 09/05/17 at 07:40; Status DC Vancomycin HCl 850 mg/Sodium Chloride 258.5 ml @ 250 mls/hr Q12H IV Last administered on 09/02/17at 00:04; Start 09/01/17 at 22:00; Stop 09/02/17 at 08:22 ; Status DC Vancomycin HCl 1000 mg/Sodium Chloride 250 ml @ 250 mls/hr ONCE ONCE IV ; Start 09/02/17 at 09:45; Stop 09/02/17 at 10:44; Status UNV Pharmacy Profile Note 0 ml @ 0 mls/hr UNSCH OTHER ; Start 09/02/17 at 09:45 Vancomycin HCl 1000 mg/Sodium Chloride 250 ml @ 250 mls/hr Q24H IV Last administered on 09/04/17at 12:08; Start 09/02/17 at 12:00 Senna/Docusate Sodium (Franci-Colace) 2 tab BID PO Last administered on at 22:04; Start 09/02/17 at 21:00 Magnesium Hydroxide (Milk Of [place]meet Liq) 30 ml Q6H PRN PO CONSTIPATION; Start 09/02/17 at 12:15 Miscellaneous Information SPECIFIC LAB TO BE SIMONE... ONCE ONCE .XX ; Start 09/05 at 11:45; Stop 09/05/17 at 11:46 Acetaminophen (Tylenol) 650 mg Q8H PRN PO HEADACHE Last administered on at 23:02; Start 09/02/17 at 23:00 Potassium Bicarb/ Potassium Chloride (K-Lyte Cl Eff) 75 meq ONCE ONCE PO Last administered on 09/03/17at 13:02; Start 09/03/17 at 12:45; Stop 09/03/17 at 12:46; Status DC Gadodiamide (Omniscan Pf Inj) 10 ml STK-MED ONCE IVCONTRAST Last administered on 09/04/17at 15:51; Start 09/04/17 at 15:51; Stop 09/04/17 at 15:52; Status DC Levetriacetam (Keppra) 500 mg Q12HR PO Last administered on 09/05/17at 09:09; Start 09/05/17 at 09:00 A/P Problem List: (1) Encephalopathy ICD Code: G93.40 - Encephalopathy, unspecified (2) CVA (cerebral vascular accident) ICD Code: I63.9 - Cerebral infarction, unspecified (3) UTI (urinary tract infection) ICD Code: N39.0 - Urinary tract infection, site not specified (4) Hypertension ICD Code: I10 - Essential (primary) hypertension (5) Hyperlipidemia ICD Code: E78.5 - Hyperlipidemia, unspecified (6) GERD (gastroesophageal reflux disease) ICD Code: K21.9 - Gastro-esophageal reflux disease without esophagitis (7) Vertigo ICD Code: R42 - Dizziness and giddiness (8) Hypokalemia ICD Code: E87.6 - Hypokalemia Assessment and Plan 1. Encephalopathy: MUCH IMPROVED acute episode of AMS noted by family, previously AA&Ox4 at baseline per Daughter. Neuro Checks. CT Head w/ no acute findings, images reviewed by me. Possibly compounded by UTI, continue w/ IV Rocephin. 2. CVA RULED OUT slurred speech/confusion noted at 3:30pm, outside [facility] window , previously aphasic, now able to say "yes". FOLLOWING COMMANDS NOW. CTA Head w / no truncation, 3mm calcified aneurysm right ICA, CTA Neck negative, images reviewed by me. IVF, PT/Speech Consult for eval/tx. Consult Neurology for further evaluation. MUCH IMPROVED FROM YESTERDAY AWAKE AND ALERT- JOKING AROUND--POSSIBLE BENADRYL/ UNISOM OVERDOSE UNINTENTIONALLY 3. UTI: E.COLI UTI U/a w/ UTI, follow up cultures, continue w/ IV Abx, IVF. VANCO- HYPOKALEMIA WILL REPLACE AGAIN Hypertension resume home medications Hyperlipidemia resume all medications DEMENTIA AM LABS PT, OT, and ST 4. DVT Prophylaxis: SCD/Teds AWAIT SENSITIVITIES ON CULTURES ON VANCO, COAG NEGATIVE STAPH- CONSULT ID 5. Social work for d/c planning as needed. Discharge Planning Pending neurological clearance May need to go to SNF at discharge Aleksander Smith DO Sep 05, 2017 10:50
[2017-09-05] MEDS ORDERED: PHARMACY ORDERED LAB ONE (11:45)
[2017-09-05] MEDS: VANCOMYCIN 1,000 MG/NS 250 ML IV SCH ×2 (12:08)
[2017-09-05] MEDS: MAGNESIUM SULFATE 1 GM PREMIX 100 ML IV SCH ×2 (13:30→14:00)
[2017-09-05 17:52] LABS: CSF CRYPTOCOCCUS ANTIGEN NOT DETECTED (NEGATIVE)
[2017-09-06] VITALS (11 sets, daily range): BP systolic 98–136; BP diastolic 54–79; PULSE 79–99; RESP 18; TEMP 97.6–98.5; O2SAT 92–100
[2017-09-06 05:16] LABS: ALBUMIN 3.2 GM/DL (3.4-5.0); AST (GOT) 15 U/L (15-37); BICARBONATE 33.2 MEQ/L (21.0-32.0); BLOOD UREA NITROGEN 26 MG/DL (7-18); CALCIUM 10.5 MG/DL (8.5-10.1); CHLORIDE 100 MEQ/L (98-107); CREATININE 1.31 MG/DL (0.50-1.00); GLOMERULAR FILTRATION RATE 40 ML/MIN (>89); GLUCOSE,RANDOM 109 MG/DL (74-106); MAGNESIUM 2.1 MG/DL (1.5-2.5); SODIUM (NA) 143 MEQ/L (136-145)
[2017-09-06 05:32] LABS: ALKALINE PHOSPHATASE 53 U/L (45-117); ALT (GPT) 17 U/L (10-53); PHOSPHORUS 5.1 MG/DL (2.5-4.9); TOTAL BILIRUBIN ADULT 0.6 MG/DL (0.2-1.0)
[2017-09-06] MEDS ORDERED: POTASSIUM CHLORIDE 20 MEQ CONTROLLED RELEASE TAB PO ONE (06:30)
--- NOTE | 2017-09-06 07:38 | HHI.PR ---
Subjective Remarks slept from2-6 am no hallucinations Objective Vital Signs Date Time Temp Pulse Resp B/P (MAP) Pulse Ox O2 Delivery O2 Flow Rate FiO2 09/06/17 04:26 99 18 125/79 (94) 97 09/06/17 00:00 98.3 98 18 133/74 (93) 97 09/05/17 20:10 97.7 90 20 116/59 (78) 95 09/05/17 20:00 92 09/05/17 19:36 98 Nasal Cannula 2.00 09/05/17 15:59 97.9 80 18 105/72 (83) 98 09/05/17 12:16 100 09/05/17 11:24 98.8 73 18 127/70 (89) 100 09/05/17 09:51 75 09/05/17 07:42 98.6 82 18 133/63 (86) 95 I/O 09/05/17 09/05/17 09/05/17 09/06/17 09/06/17 09/06/17 07:00 15:00 23:00 07:00 15:00 23:00 Intake Total 240 ml Balance 240 ml Intake Oral 240 ml # Voids 2 3 1 1 # Bowel Movements 0 1 Result Diagram: 09/05/17 0652 09/06/17 0425 Objective Remarks awake alert face sym moves all follows commands well speech clear knows month and yr vff moves all well Assessment and Plan Assessment and Plan imp LP neg eeg some mild r changes +/- sharps on keppra blood and urine cx pos plan hsv pcr neg off acyclovir i dw med team watch renal fx daily on that ivf keppra change to po mri the posterior fluid resolved some hallucinations yest could have been sleep deprivation or keppra will watch ? dc soon? 09/06/17 doing well oriented ready for dc neurowise will recheck eeg and if neg dc keppra have cards see for 12 beat VT run Brock Laughlin MD Sep 06, 2017 07:38
[2017-09-06] MEDS: LOSARTAN 50 MG TAB PO SCH (08:32)
[2017-09-06] MEDS: predniSONE 5 MG TAB PO SCH (08:32)
[2017-09-06] MEDS: levETIRAcetam 500 MG TAB PO SCH ×2 (08:32→23:14)
[2017-09-06] MEDS: HYDROCHLOROTHIAZIDE 12.5 MG CAP PO SCH (08:32)
[2017-09-06] MEDS: DOCUSATE SODIUM 50 MG/SENNA 8.6 MG TAB PO SCH ×2 (08:32→21:00)
[2017-09-06] MEDS: PRAVASTATIN SOD 20 MG TAB PO SCH (08:32)
[2017-09-06] MEDS: ASPIRIN 81 MG CHEW TAB PO SCH (08:33)
[2017-09-06] MEDS: POTASSIUM CHLORIDE 10 MEQ CONTROLLED RELEASE TAB PO SCH (08:33)
[2017-09-06] MEDS: METOPROLOL TARTRATE 100 MG TAB PO SCH ×2 (08:33→23:14)
[2017-09-06] MEDS: PANTOPRAZOLE SOD 20 MG DELAYED RELEASE TAB PO SCH (08:33)
[2017-09-06] MEDS: HEPARIN SODIUM - SQ 10,000 UNITS/ML VIAL SQ SCH ×2 (08:34→23:15)
[2017-09-06] MEDS: FUROSEMIDE 40 MG TAB PO SCH (08:35)
[2017-09-06] MEDS: SODIUM CHLORIDE 0.9% FLUSH 10 ML FLUSH IV FLUSH SCH ×2 (08:35→23:14)
--- NOTE | 2017-09-06 08:43 | PD.CONS ---
HPI Consult Requested By Primary Care Physician Unknown History of Present Illness 76-year-old female with past medical history of HTN, HLD, COPD, GERD who initially presented to the hospital 09/01 with altered mental status and was found to have UTI and bacteremia. She has been improving since admission with antibiotics. Last night her blood pressure was lower at 116/59 and her metoprolol 100 mg (takes for blood pressure) dose was held. She had a 12 beat run of V. tach last night. She was asymptomatic; denies any chest pain, shortness of breath, palpitations. She denies any prior history of heart disease or arrhythmia. Her potassium was low at 3.4, replenish today by primary team. Review of Systems Negative except as stated in the HPI Past Family Social History Allergies: Coded Allergies: No Known Allergies (Unverified Allergy, Unknown, 09/01/17) Past Medical History Hypertension Hyperlipidemia COPD GERD Past Surgical History Appendectomy, Hysterectomy Reported Medications Reported Meds & Active Scripts Active Reported Hydrochlorothiazide 12.5 Mg Tab 12.5 Mg PO DAILY Aspirin 81 Mg Chew 81 Mg CHEW DAILY EC-Naprosyn (Naproxen) 500 Mg Tabdr 500 Mg PO BID Metoprolol Tartrate 100 Mg Tab 100 Mg PO BID Omeprazole 20 Mg Tab 20 Mg PO DAILY Meclizine (Meclizine HCl) 12.5 Mg Tab 12.5 Mg PO DIRECTED PRN Unisom Sleepgels (Diphenhydramine (Sleep)) 50 Mg Cap 50 Mg PO HS PRN Losartan (Losartan Potassium) 100 Mg Tab 100 Mg PO DAILY Promethazine (Promethazine HCl) 12.5 Mg Tab 12.5 Mg PO Q6H PRN Lovastatin 20 Mg Tab 20 Mg PO DAILY Prednisone 2.5 Mg Tab 2.5 Mg PO DAILY Furosemide 40 Mg Tab 40 Mg PO DAILY Active Ordered Medications Current Medications Medications (Trade) Dose Ordered Sig/Valdez Route Start Time Stop Time Status Last Admin (NS Flush) 2 ml BID IV FLUSH 09/01/17 09:00 09/06/17 08:35 (NS Flush) 2 ml UNSCH PRN IV FLUSH 09/01/17 00:30 (Vasotec Inj) 1.25 mg Q4H PRN IV PUSH 09/01/17 00:30 (Zofran Inj) 4 mg Q6HR PRN IV PUSH 3/10/18 04:00 09/01/17 04:07 (Lasix) 40 mg DAILY PO 09/01/17 09:00 09/06/17 08:35 (Cozaar) 100 mg DAILY PO 09/01/17 09:00 09/06/17 08:32 (Pravachol) 20 mg DAILY PO 09/01/17 09:00 09/06/17 08:32 (Lopressor) 100 mg BID PO 09/01/17 09:00 09/06/17 08:33 (Protonix) 20 mg DAILY PO 09/01/17 09:00 09/06/17 08:33 (Deltasone) 2.5 mg DAILY PO 09/01/17 09:00 09/06/17 08:32 Pharmacy Profile Note 0 ml @ 0 mls/hr UNSCH OTHER 09/02/17 09:45 Vancomycin HCl 1000 mg/Sodium Chloride 250 ml @ 250 mls/hr Q24H IV 09/02/17 12:00 09/05/17 12:08 (Franci-Colace) 2 tab BID PO 09/02/17 21:00 09/06/17 08:32 (Milk Of [place] Liq) 30 ml Q6H PRN PO 09/02/17 12:15 (Tylenol) 650 mg Q8H PRN PO 09/02/17 23:00 09/02/17 23:02 (Keppra) 500 mg Q12HR PO 09/05/17 09:00 09/06/17 08:32 (KCl) 30 meq DAILY PO 09/06/17 09:00 09/06/17 08:33 (Aspirin Chew) 81 mg DAILY PO 09/06/17 09:00 09/06/17 08:33 (Heparin Inj) 5,000 units Q12HR SQ 09/06/17 09:00 09/06/17 08:34 Family History Denies any family history of heart disease Social History Positive for tobacco. Negative for alcohol or drugs. Physical Exam Vital Signs Vital Signs Date Time Temp Pulse Resp B/P (MAP) Pulse Ox O2 Delivery O2 Flow Rate FiO2 09/06/17 08:00 98.5 90 18 118/75 (89) 100 09/06/17 04:26 99 18 125/79 (94) 97 09/06/17 00:00 98.3 98 18 133/74 (93) 97 09/05/17 20:10 97.7 90 20 116/59 (78) 95 09/05/17 20:00 92 09/05/17 19:36 98 Nasal Cannula 2.00 09/05/17 15:59 97.9 80 18 105/72 (83) 98 09/05/17 12:16 100 09/05/17 11:24 98.8 73 18 127/70 (89) 100 09/05/17 09:51 75 Physical Exam GENERAL: Well-developed well-nourished. In no acute distress. NECK: No carotid bruits. No JVD. CARDIOVASCULAR: Regular rate and rhythm. No murmur appreciated. RESPIRATORY: No accessory muscle use. Clear to auscultation. Breath sounds equal bilaterally. MUSCULOSKELETAL: No clubbing or cyanosis. No edema. NEUROLOGICAL: Awake and alert. Normal speech. Laboratory Laboratory Tests Test 09/05/17 11:55 09/06/17 04:25 Vancomycin Level Trough 16.8 Blood Urea Nitrogen 26 Creatinine 1.31 Random Glucose 109 Total Protein 7.0 Albumin 3.2 Calcium Level 10.5 Phosphorus Level 5.1 Magnesium Level 2.1 Alkaline Phosphatase 53 Aspartate Amino Transf (AST/SGOT) 15 Alanine Aminotransferase (ALT/SGPT) 17 Total Bilirubin 0.6 Sodium Level 143 Potassium Level 3.4 Chloride Level 100 Carbon Dioxide Level 33.2 Anion Gap 10 Estimat Glomerular Filtration Rate 40 Date/Time Source Procedure Growth Status 09/03/17 20:00 Blood Peripheral Aerobic Blood Culture - Preliminary NO GROWTH IN 2 DAYS Resulted 09/03/17 20:00 Blood Peripheral Anaerobic Blood Culture - Preliminary NO GROWTH IN 2 DAYS Resulted 09/01/17 19:07 Cerebral Spinal Fluid Lumbar Puncture Fungal Smear - Final NO FUNGAL ELEMENTS SEEN. Resulted 09/01/17 19:07 Cerebral Spinal Fluid Lumbar Puncture Fungal Culture Pending Resulted 08/31/17 22:37 Urine Catheterized Urine Urine Culture - Final Escherichia Coli Complete Result Diagram: 09/05/17 0652 09/06/17 0425 Imaging Last Impressions Brain MRI 09/04/17 0600 Signed Impressions: Service Date/Time: Monday, September 04, 2017 15:32 - CONCLUSION: 1. Near interval resolution of previously noted T2 hyperintense subarachnoid fluid in the parietal and occipital lobes. There is no residual restricted diffusion, meningeal enhancement or significant blood products. Jordan Epstein MD Neck Magnetic Resonance Angiography 09/01/17 Signed Impressions: Service Date/Time: Friday, September 01, 2017 12:09 - CONCLUSION: 1. No evidence of significant stenosis in the extracranial carotid and vertebral arteries. 2. Improved visualization of the intracranial vessels following administration of contrast compared to nonenhanced MRA. There is no evidence of distal left vertebral artery stenosis or focal areas of [id number] narrowing in the proximal MCAs. Carlin Walters MD Lumbar Puncture Fluoroscopy 09/01/17 Signed Impressions: Service Date/Time: Friday, September 01, 2017 19:14 - CONCLUSION: Uncomplicated fluoroscopically guided lumbar puncture. Gordon Rodriguez Jr., MD Head Magnetic Resonance Angiography 09/01/17 Signed Impressions: Service Date/Time: Friday, September 01, 2017 12:09 - CONCLUSION: 1. Suboptimal visualization of the intracranial vessels do to motion artifact. 2. Irregularity is evident throughout the middle and posterior cerebral arteries. 3. Focal areas of diminished flow related enhancement which may represent focal stenoses however considering the amount of background motion these may be artifactual. Carlin Walters MD Chest CT 09/01/17 Signed Impressions: Service Date/Time: Friday, September 01, 2017 10:13 - CONCLUSION: 1. 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 2. No suspicious pulmonary mass or acute airspace disease. 3. Moderate cardiomegaly with calcific described disease of the coronary arteries. 4. Simple left renal cyst. 5. Significant bilateral shoulder arthropathy. Carlin Walters MD Neck CTA [id number] Signed Impressions: Service Date/Time: Thursday, August 31, 2017 23:08 - CONCLUSION: Negative CTA of the carotids. Gordon Huerta MD Head CTA [id number] Signed Impressions: Service Date/Time: Thursday, August 31, 2017 23:08 - CONCLUSION: No evidence of vessel truncation. 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 Grodon Huerta MD Head CT [id number] Signed Impressions: Service Date/Time: Thursday, August 31, 2017 22:18 - CONCLUSION: 1. No acute findings in the brain. Gordon Huerta MD Chest X-Ray 08/31/17 [id number] Signed Impressions: Service Date/Time: Thursday, August 31, 2017 22:24 - CONCLUSION: 1. No focal infiltrates seen. 2. 1.8 cm focal opacity right perihilar region of uncertain significance; cannot exclude a focal mass. Gordon Huerta MD Assessment and Plan Assessment and Plan 76-year-old female with past medical history of HTN, HLD, COPD, GERD who initially presented to the hospital 09/01 with altered mental status and was found to have UTI and bacteremia. The patient had an asymptomatic 12 beat run of NSVT early on 09/06. Nonsustained ventricular tachycardia: Echocardiogram 09/03 was essentially unremarkable. Check Lexiscan to rule out ischemic etiology. Continue metoprolol. Replenish electrolytes. Hypertension: BP has been lower, DC HCTZ. Continue metoprolol and losartan. Discussed Condition With Patient with RN at bedside, Tim Hooper Sep 06, 2017 08:43
--- NOTE | 2017-09-06 12:01 | HHI.PR ---
Subjective Remarks This is a 76-year-old female with a PMH of HTN, Hyperlipidemia, COPD and Tobacco Abuse who is brought to the ER by EMS secondary to AMS, Stroke Alert initiated in field prior to arrival. Pt unable to provide any history as she is aphasic, not following commands. Per Daughter, pt is AA&Ox4 at baseline, ambulates without difficulty. Today pt noted to be confused, not making sense, slurring speech at approx 3:30pm. On arrival, BP 142/67, HR 77, O2 sat 97% on 2L NC, Afebrile. CBC unremarkable. Chemistry unremarkable with the. GFR 59. Troponin negative. INR 1.2. CXR with no focal infiltrates, 1.8 cm opacity right perihilar region, cannot exclude mass. CT Head negative. 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 CTA Neck negative. S/p Zosyn in ER. 3-10 patient remains totally aphasic Not able to follow any commands. Past swallow eval with pured diet and thickened liquids We will resume her home medications Continue on aspirin and statin Await neurological evaluation Physical therapy, occupational therapy, and speech therapy evaluations 3-11 POSITIVE CULTURES PENDING SENSITIVITIES CONTINUE ROCEPHIN VANCOMYCIN AND ACYCLOVIR DW NEUROLOGY MOVED TO NEURO FLOOR MUCH MORE ALERT TODAY TALKATIVE- COOPERATIVE DW RN AND PT AND CM AM LABS 3-12 CONSULT ID REGARDING COAG NEG STAPH MUCH MORE TALKATIVE AND ALERT PROBABLY UNISOM OVERDOSE UNINTENTIONALLY UTI AND COAG NEGATIVE STAPH MUCH IMPROVED DOES NOT WANT TO GO TO REHAB DW FAMILY AND RN AND PT AND CASE MANAGEMENT 313 THINKS SHE SAW ID TODAY DW RN AND PT TO HAVE REPEAT MRI TODAY CONTINUE PT AND OT MAY NEED SNF AT [place] 3-14 AWAIT ID CLEARANCE MEDS ADJUSTED BY ID ACYCLOVIR STOPPED, ROCEPHIN STOPPED SWITCH TO PO MEDS FOR KEPPRA DOES NOT WANT TO GO TO REHAB EVEN THOUGH PT AND OT RECOMMEND IT AM LABS 3-15 TO HAVE STRESS TEST TODAY HAD 12 BEAT RUN OF VTACH SEEN BY CARDIO HAD EEG NOT PERFECT- CONTINUE KEPPRA HOPEFULLY TO [facility] TOMORROW RESTART PAIN MEDS DW RN AND PT AND CM TO HAVE STRESS TEST TODAY HOPEFULLY TO [facility] TOMORROW ON 3-16 Objective Vitals Vital Signs Date Time Temp Pulse Resp B/P (MAP) Pulse Ox O2 Delivery O2 Flow Rate FiO2 09/06/17 08:57 97 Nasal Cannula 3.00 09/06/17 08:00 98.5 90 18 118/75 (89) 100 09/06/17 04:26 99 18 125/79 (94) 97 09/06/17 00:00 98.3 98 18 133/74 (93) 97 09/05/17 20:10 97.7 90 20 116/59 (78) 95 09/05/17 20:00 92 09/05/17 19:36 98 Nasal Cannula 2.00 09/05/17 15:59 97.9 80 18 105/72 (83) 98 09/05/17 12:16 100 I/O 09/05/17 09/05/17 09/05/17 09/06/17 09/06/17 09/06/17 06:59 14:59 22:59 06:59 14:59 22:59 Intake Total 240 ml Balance 240 ml Intake Oral 240 ml # Voids 2 3 1 1 # Bowel Movements 0 1 Result Diagram: 09/05/17 0652 09/06/17 0425 Other Results Laboratory Tests Test 09/04/17 05:40 09/05/17 06:52 09/05/17 11:55 09/06/17 04:25 White Blood Count 9.5 TH/MM3 9.6 TH/MM3 Red Blood Count 4.20 MIL/MM3 4.44 MIL/MM3 Hemoglobin 13.2 GM/DL 13.6 GM/DL Hematocrit 38.6 % 40.1 % Mean Corpuscular Volume 91.7 FL 90.3 FL Mean Corpuscular Hemoglobin 31.3 PG 30.6 PG Mean Corpuscular Hemoglobin Concent 34.2 % 33.9 % Red Cell Distribution Width 13.5 % 13.6 % Platelet Count 283 TH/MM3 298 TH/MM3 Mean Platelet Volume 7.4 FL 7.3 FL Neutrophils (%) (Auto) 69.4 % 67.1 % Lymphocytes (%) (Auto) 17.9 % 19.7 % Monocytes (%) (Auto) 9.2 % 9.4 % Eosinophils (%) (Auto) 2.9 % 3.1 % Basophils (%) (Auto) 0.6 % 0.7 % Neutrophils # (Auto) 6.6 TH/MM3 6.5 TH/MM3 Lymphocytes # (Auto) 1.7 TH/MM3 1.9 TH/MM3 Monocytes # (Auto) 0.9 TH/MM3 0.9 TH/MM3 Eosinophils # (Auto) 0.3 TH/MM3 0.3 TH/MM3 Basophils # (Auto) 0.1 TH/MM3 0.1 TH/MM3 CBC Comment DIFF FINAL DIFF FINAL Differential Comment Blood Urea Nitrogen 20 MG/DL 19 MG/DL 26 MG/DL Creatinine 1.11 MG/DL 1.08 MG/DL 1.31 MG/DL Random Glucose 96 MG/DL 109 MG/DL 109 MG/DL Total Protein 6.8 GM/DL 7.1 GM/DL 7.0 GM/DL Albumin 3.3 GM/DL 3.3 GM/DL 3.2 GM/DL Calcium Level 9.7 MG/DL 10.2 MG/DL 10.5 MG/DL Phosphorus Level 3.5 MG/DL 4.4 MG/DL 5.1 MG/DL Magnesium Level 1.7 MG/DL 1.6 MG/DL 2.1 MG/DL Alkaline Phosphatase 42 U/L 46 U/L 53 U/L Aspartate Amino Transf (AST/SGOT) 16 U/L 16 U/L 15 U/L Alanine Aminotransferase (ALT/SGPT) 16 U/L 17 U/L 17 U/L Total Bilirubin 0.7 MG/DL 0.7 MG/DL 0.6 MG/DL Sodium Level 145 MEQ/L 143 MEQ/L 143 MEQ/L Potassium Level 3.4 MEQ/L 3.5 MEQ/L 3.4 MEQ/L Chloride Level 105 MEQ/L 102 MEQ/L 100 MEQ/L Carbon Dioxide Level 31.4 MEQ/L 33.0 MEQ/L 33.2 MEQ/L Anion Gap 9 MEQ/L 8 MEQ/L 10 MEQ/L Estimat Glomerular Filtration Rate 48 ML/MIN 50 ML/MIN 40 ML/MIN Vancomycin Level Trough 16.8 MCG/ML Imaging Last Impressions Brain MRI 09/04/17 0600 Signed Impressions: Service Date/Time: Monday, September 04, 2017 15:32 - CONCLUSION: 1. Near interval resolution of previously noted T2 hyperintense subarachnoid fluid in the parietal and occipital lobes. There is no residual restricted diffusion, meningeal enhancement or significant blood products. Jordan Epstein MD Neck Magnetic Resonance Angiography 09/01/17 0000 Signed Impressions: Service Date/Time: Friday, September 01, 2017 12:09 - CONCLUSION: 1. No evidence of significant stenosis in the extracranial carotid and vertebral arteries. 2. Improved visualization of the intracranial vessels following administration of contrast compared to nonenhanced MRA. There is no evidence of distal left vertebral artery stenosis or focal areas of [id number] narrowing in the proximal MCAs. Carlin Walters MD Lumbar Puncture Fluoroscopy 09/01/17 Signed Impressions: Service Date/Time: Friday, September 01, 2017 19:14 - CONCLUSION: Uncomplicated fluoroscopically guided lumbar puncture. Gordon Rodriguez Jr., MD Head Magnetic Resonance Angiography 09/01/17 Signed Impressions: Service Date/Time: Friday, September 01, 2017 12:09 - CONCLUSION: 1. Suboptimal visualization of the intracranial vessels do to motion artifact. 2. Irregularity is evident throughout the middle and posterior cerebral arteries. 3. Focal areas of diminished flow related enhancement which may represent focal stenoses however considering the amount of background motion these may be artifactual. Carlin Walters MD Chest CT 09/01/17 Signed Impressions: Service Date/Time: Friday, September 01, 2017 10:13 - CONCLUSION: 1. 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 2. No suspicious pulmonary mass or acute airspace disease. 3. Moderate cardiomegaly with calcific described disease of the coronary arteries. 4. Simple left renal cyst. 5. Significant bilateral shoulder arthropathy. Carlin Walters MD Neck CTA [id number] Signed Impressions: Service Date/Time: Thursday, August 31, 2017 23:08 - CONCLUSION: Negative CTA of the carotids. Gordon Huerta MD Head CTA [id number] Signed Impressions: Service Date/Time: Thursday, August 31, 2017 23:08 - CONCLUSION: No evidence of vessel truncation. 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 Gordon Huerta MD Head CT [id number] Signed Impressions: Service Date/Time: Thursday, August 31, 2017 22:18 - CONCLUSION: 1. No acute findings in the brain. Gordon Huerta MD Chest X-Ray [id number] Signed Impressions: Service Date/Time: Thursday, August 31, 2017 22:24 - CONCLUSION: 1. No focal infiltrates seen. 2. 1.8 cm focal opacity right perihilar region of uncertain significance; cannot exclude a focal mass. Gordon Huerta MD Objective Remarks GENERAL: She is awake and alert ORIENTED X3 MUCH IMPROVED- TALKATIVE AND COOPERATIVE SKIN: Warm and dry. HEAD: Atraumatic. Normocephalic. EYES: Pupils equal and round. No scleral icterus. No injection or drainage. Extraocular muscles appear grossly intact ENT: No nasal bleeding or discharge. Mucous membranes pink and moist. Tongue is midline NECK: Trachea midline. No JVD. Supple CARDIOVASCULAR: Regular rate and rhythm. S1-S2 no S3 or S4 NO HEAVE OR THRILL OR RUB RESPIRATORY: No accessory muscle use. Clear to auscultation. Breath sounds equal bilaterally. GASTROINTESTINAL: Abdomen soft, non-tender, nondistended. Hepatic and splenic margins not palpable. MUSCULOSKELETAL: Extremities without clubbing, cyanosis, or edema. No obvious deformities. NEUROLOGICAL: Awake and alert. No obvious cranial nerve deficits. Motor grossly within normal limits. Five out of 5 muscle strength in the arms and legs. GOOD SPEECH PSYCHIATRIC: Appropriate mood and affect; insight and judgment ARE NORMAL- NO LONGER APHASIC-RESOLVED Procedures LUMBAR PUNCTURE Medications and IVs Current Medications Sodium Chloride (NS Flush) 2 ml UNSCH PRN IVF FLUSH AFTER USING IV ACCESS; Start 08/31/17 at 22:15; Stop 09/01/17 at 00:39; Status DC Ondansetron HCl (Zofran Inj) 4 mg STK-MED ONCE .ROUTE ; Start 08/31/17 at 22:27; Stop 08/31/17 at 22:28; Status DC Ondansetron HCl (Zofran Inj) 4 mg ONCE ONCE IV PUSH Last administered on at 22:51; Start 08/31/17 at 22:45; Stop 08/31/17 at 22:46; Status DC Aspirin (Aspirin) 325 mg ONCE ONCE PO Last administered on 08/31/17at 23:30; Start 08/31/17 at 23:00; Stop 09/01/17 at 14:02; Status DC Iohexol (Omnipaque 350 Inj) 75 ml STK-MED ONCE IVCONTRAST Last administered on 08/31/17at 23:29; Start 08/31/17 at 23:29; Stop 08/31/17 at 23:30; Status DC Piperacillin Sod/ Tazobactam Sod 100 ml @ 200 mls/hr ONCE ONCE IV Last administered on 09/01/17at 00:23; Start 08/31/17 at 23:45; Stop 09/01/17 at 00:14 ; Status DC Sodium Chloride (NS Flush) 2 ml BID IV FLUSH Last administered on 09/06/17at 08: 35; Start 09/01/17 at 09:00 Sodium Chloride (NS Flush) 2 ml UNSCH PRN IV FLUSH FLUSH AFTER USING IV ACCESS ; Start 09/01/17 at 00:30 Enalaprilat (Vasotec Inj) 1.25 mg Q4H PRN IV PUSH For SBP > 220 or DBP > 120; Start 09/01/17 at 00:30 Aspirin (Aspirin Supp) 300 mg DAILY RECTAL Last administered on 09/01/17at 07:44 ; Start 09/01/17 at 09:00; Stop 09/01/17 at 14:02; Status DC Insulin Aspart (NovoLOG SUPPLEMENTAL SCALE) 1 ACHS SQ ; Start 09/01/17 at 08:00 ; Stop 09/03/17 at 12:22; Status DC Dextrose (D50w (Vial) Inj) 50 ml UNSCH PRN IV PUSH HYPOGLYCEMIA-SEE COMMENTS; Start 09/01/17 at 00:30; Stop 09/03/17 at 12:22; Status DC Glucagon (Glucagon Inj) 1 mg UNSCH PRN OTHER HYPOGLYCEMIA-SEE COMMENTS; Start 09/01/17 at 00:30; Stop 09/03/17 at 12:22; Status DC Ondansetron HCl (Zofran Inj) 4 mg Q6HR PRN IV PUSH NAUSEA OR VOMITING Last administered on 09/01/17at 04:07; Start 09/01/17 at 04:00 Aspirin (Aspirin Chew) 81 mg DAILY CHEW ; Start 09/01/17 at 09:00; Stop at 09:11; Status DC Furosemide (Lasix) 40 mg DAILY PO Last administered on 09/06/17at 08:35; Start 09/01/17 at 09:00 Hydrochlorothiazide (Microzide) 12.5 mg DAILY PO Last administered on at 08:32; Start 09/01/17 at 09:00; Stop 09/06/17 at 08:37; Status DC Losartan Potassium (Cozaar) 100 mg DAILY PO Last administered on 09/06/17at 08: 32; Start 09/01/17 at 09:00 Pravastatin Sodium (Pravachol) 20 mg DAILY PO Last administered on 09/06/17at 08 :32; Start 09/01/17 at 09:00 Meclizine HCl (Antivert) 12.5 mg Q8H PRN PO VERTIGO; Start 09/01/17 at 09:00; Stop 09/01/17 at 14:02; Status DC Metoprolol Tartrate (Lopressor) 100 mg BID PO Last administered on 09/06/17at 08 :33; Start 09/01/17 at 09:00 Pantoprazole Sodium (Protonix) 20 mg DAILY PO Last administered on 09/06/17at 08 :33; Start 09/01/17 at 09:00 Prednisone (Deltasone) 2.5 mg DAILY PO Last administered on 09/06/17at 08:32; Start 09/01/17 at 09:00 Aspirin (Aspirin) 325 mg DAILY PO ; Start 09/01/17 at 09:15; Stop 09/01/17 at 14 :02; Status DC Ceftriaxone Sodium 1000 mg/ Sodium Chloride 100 ml @ 200 mls/hr Q24H IV Last administered on 09/04/17at 10:37; Start 09/01/17 at 09:00; Stop 09/04/17 at 15:00 ; Status DC Potassium Bicarb/ Potassium Chloride (K-Lyte Cl Eff) 50 meq ONCE ONCE PO ; Start 09/01/17 at 09:15; Stop 09/01/17 at 09:46; Status DC Potassium Bicarb/ Potassium Chloride (K-Lyte Cl Eff) 25 meq DAILY PO Last administered on 09/05/17at 09:10; Start 09/02/17 at 09:00; Stop 09/05/17 at 10:52 ; Status DC Potassium Bicarb/ Potassium Chloride (K-Lyte Cl Eff) 50 meq ONCE ONCE PO ; Start 09/01/17 at 09:15; Stop 09/01/17 at 09:16; Status UNV Potassium Bicarb/ Potassium Chloride (K-Lyte Cl Eff) 25 meq DAILY PO ; Start at 09:00; Status UNV Iohexol (Omnipaque 350 Inj) 65 ml STK-MED ONCE IVCONTRAST Last administered on 09/01/17at 10:32; Start 09/01/17 at 10:32; Stop 09/01/17 at 10:33; Status DC Lorazepam (Ativan Inj) 1 mg ONCE ONCE IV PUSH Last administered on 09/01/17at 11:51; Start 09/01/17 at 11:00; Stop 09/02/17 at 09:55; Status DC Gadodiamide (Omniscan Pf Inj) 20 ml STK-MED ONCE IVCONTRAST Last administered on 09/01/17at 12:36; Start 09/01/17 at 12:36; Stop 09/01/17 at 12:37; Status DC Acyclovir Sodium 568 mg/Sodium Chloride 100 ml @ 100 mls/hr Q8H IV Last administered on 09/04/17at 09:39; Start 09/01/17 at 17:00; Stop 09/04/17 at 14:51 ; Status DC Ampicillin Sodium 1000 mg/Sodium Chloride 100 ml @ 400 mls/hr Q4H IV Last administered on 09/02/17at 07:39; Start 09/01/17 at 16:00; Stop 09/02/17 at 08:22 ; Status DC Vancomycin HCl 850 mg/Sodium Chloride 258.5 ml @ 250 mls/hr Q12H IV ; Start 04/11 at 18:00; Stop 09/01/17 at 22:08; Status DC Levetriacetam 100 ml @ 400 mls/hr Q12HR IV Last administered on 09/04/17at 21: 57; Start 09/01/17 at 21:00; Stop 09/05/17 at 07:40; Status DC Vancomycin HCl 850 mg/Sodium Chloride 258.5 ml @ 250 mls/hr Q12H IV Last administered on 09/02/17at 00:04; Start 09/01/17 at 22:00; Stop 09/02/17 at 08:22 ; Status DC Vancomycin HCl 1000 mg/Sodium Chloride 250 ml @ 250 mls/hr ONCE ONCE IV ; Start 09/02/17 at 09:45; Stop 09/02/17 at 10:44; Status UNV Pharmacy Profile Note 0 ml @ 0 mls/hr UNSCH OTHER ; Start 09/02/17 at 09:45 Vancomycin HCl 1000 mg/Sodium Chloride 250 ml @ 250 mls/hr Q24H IV Last administered on 09/05/17at 12:08; Start 09/02/17 at 12:00 Senna/Docusate Sodium (Franci-Colace) 2 tab BID PO Last administered on at 08:32; Start 09/02/17 at 21:00 Magnesium Hydroxide (Milk Of Magnesia Liq) 30 ml Q6H PRN PO CONSTIPATION; Start 09/02/17 at 12:15 Miscellaneous Information SPECIFIC LAB TO BE ... ONCE ONCE .XX Last administered on 09/05/17at 12:06; Start 09/05/17 at 11:45; Stop 09/05/17 at 11:46 ; Status DC Acetaminophen (Tylenol) 650 mg Q8H PRN PO HEADACHE Last administered on at 23:02; Start 09/02/17 at 23:00 Potassium Bicarb/ Potassium Chloride (K-Lyte Cl Eff) 75 meq ONCE ONCE PO Last administered on 09/03/17at 13:02; Start 09/03/17 at 12:45; Stop 09/03/17 at 12:46; Status DC Gadodiamide (Omniscan Pf Inj) 10 ml STK-MED ONCE IVCONTRAST Last administered on 09/04/17at 15:51; Start 09/04/17 at 15:51; Stop 09/04/17 at 15:52; Status DC Levetriacetam (Keppra) 500 mg Q12HR PO Last administered on 09/06/17at 08:32; Start 09/05/17 at 09:00 Potassium Chloride (KCl) 30 meq DAILY PO Last administered on 09/06/17at 08:33; Start 09/06/17 at 09:00 Magnesium Sulfate/ Dextrose 100 ml @ 100 mls/hr Q1H IV Last administered on at 14:00; Start 09/05/17 at 11:00; Stop 09/05/17 at 12:59; Status DC Potassium Chloride (KCl) 40 meq ONCE ONCE PO Last administered on 09/06/17at 06 :30; Start 09/06/17 at 06:30; Stop 09/06/17 at 06:31; Status DC Aspirin (Aspirin Chew) 81 mg DAILY PO Last administered on 09/06/17at 08:33; Start 09/06/17 at 09:00 Heparin Sodium (Porcine) (Heparin Inj) 5,000 units Q12HR SQ Last administered on 09/06/17at 08:34; Start 09/06/17 at 09:00 A/P Problem List: (1) Encephalopathy ICD Code: G93.40 - Encephalopathy, unspecified (2) CVA (cerebral vascular accident) ICD Code: I63.9 - Cerebral infarction, unspecified (3) UTI (urinary tract infection) ICD Code: N39.0 - Urinary tract infection, site not specified (4) Hypertension ICD Code: I10 - Essential (primary) hypertension (5) Hyperlipidemia ICD Code: E78.5 - Hyperlipidemia, unspecified (6) GERD (gastroesophageal reflux disease) ICD Code: K21.9 - Gastro-esophageal reflux disease without esophagitis (7) Vertigo ICD Code: R42 - Dizziness and giddiness (8) Hypokalemia ICD Code: E87.6 - Hypokalemia Assessment and Plan 1. Encephalopathy: MUCH IMPROVED acute episode of AMS noted by family, previously AA&Ox4 at baseline per Daughter. Neuro Checks. CT Head w/ no acute findings, images reviewed by me. Possibly compounded by UTI, continue w/ IV Rocephin. 2. CVA RULED OUT slurred speech/confusion noted at 3:30pm, outside TPA window , previously aphasic, now able to say "yes". FOLLOWING COMMANDS NOW. CTA Head w / no truncation, 3mm calcified aneurysm right ICA, CTA Neck negative, images reviewed by me. IVF, PT/Speech Consult for eval/tx. Consult Neurology for further evaluation. MUCH IMPROVED FROM YESTERDAY AWAKE AND ALERT- JOKING AROUND--POSSIBLE BENADRYL/ UNISOM OVERDOSE UNINTENTIONALLY 3. UTI: E.COLI UTI U/a w/ UTI, follow up cultures, continue w/ IV Abx, IVF. VANCO- HYPOKALEMIA WILL REPLACE AGAIN Hypertension resume home medications Hyperlipidemia resume all medications DEMENTIA AM LABS PT, OT, and ST 4. DVT Prophylaxis: SCD/Teds OSTEOARTHRITIS- RESTART PAIN MEDS 12 BEAT RUN OF VTACH- TO HAVE STRESS TEST TODAY DW RN AND PT AND CM TO [facility] WHEN SHE IS CLEARED BY ID, NEURO AND CARDIO AWAIT SENSITIVITIES ON CULTURES ON VANCO, COAG NEGATIVE STAPH- CONSULT ID 5. Social work for d/c planning as needed. Discharge Planning Pending neurological clearance AND ID AND CARDIO HOPEFULLY TO [facility] TOMORROW Aleksander Smith DO Sep 06, 2017 12:01
[2017-09-06] MEDS: ACETAMINOPHEN/HYDROcodone 325 MG/10 MG TAB PO PRN ×2 (12:45→18:58)
[2017-09-06] MEDS ORDERED: REGADENOSON INJ 0.4 MG/5 ML SYR IV ONE (14:36)
--- NOTE | 2017-09-06 15:51 | RADRPT ---
EXAM DATE/TIME: 09/06/2017 13:54 [facility] COMPARISON: No previous studies available for comparison. INDICATIONS : Chest pain. Abnormal EKG. DOSE: 25.5 mCi Tc99m Myoview at stress. 8.8 mCi Tc99m Myoview at rest. 0.4 mg Lexiscan STRESS SYMPTOMS: Dyspnea. EJECTION FRACTION: 37% MEDICAL HISTORY : Hypertension. Chronic obstructive pulmonary disease. Gastroesophageal reflux disease. SURGICAL HISTORY : Appendectomy. Hysterectomy. ENCOUNTER: Initial ACUITY: 4 - 6 days PAIN SCALE: 3/10 LOCATION: chest TECHNIQUE: The patient underwent pharmacologic stress with infusion of prescribed dose. Continuous ECG tracing was monitored during stress. Gated SPECT imaging was performed after stress and conventional SPECT i maging was performed at rest. The examination was performed on a SPECT/CT scanner, both attenuation and non-corrected datasets were reviewed. FINDINGS: DISTRIBUTION: The maximum perfused segment at stress is in the anterolateral wall. PERFUSION STUDY: Decreased perfusion in the inferior wall during stress. GATED STUDY: Global hypokinesia with significant reduced ejection fraction. CONCLUSION: 1. Inferior wall ischemia. 2. Global hypokinesia with reduced EF of 37%. RISK CATEGORY: Low (<1% Annual Mortality Rate) Jordan Epstein MD on September 06, 2017 at 15:47 Board Certified Radiologist. This report was verified electronically.
--- NOTE | 2017-09-06 16:12 | HHI.IDPN ---
Note Infectious Disease Note Patient is sitting at the side of the bed. Noted to have nonsustained V. tach. She is alert and oriented. No fever or chills. Reports that she had mild nausea earlier. Does not have nausea now. 76-year-old white female who was admitted to the hospital because of altered mental status. PAST MEDICAL HISTORY: Hypertension, COPD, hyperlipidemia, history of appendectomy, history of hysterectomy. ALLERGIES: NO KNOWN DRUG ALLERGIES. MEDICATIONS: Current Medications Medications (Trade) Dose Ordered Sig/Valdez Route PRN Reason Start Time Stop Time Status Last Admin Dose Admin Sodium Chloride (NS Flush) 2 ml BID IV FLUSH 09/01/17 09:00 09/06/17 08:35 Sodium Chloride (NS Flush) 2 ml UNSCH PRN IV FLUSH FLUSH AFTER USING IV ACCESS 09/01/17 00:30 Enalaprilat (Vasotec Inj) 1.25 mg Q4H PRN IV PUSH For SBP > 220 or DBP > 120 09/01/17 00:30 Ondansetron HCl (Zofran Inj) 4 mg Q6HR PRN IV PUSH NAUSEA OR VOMITING 09/01/17 04:00 09/01/17 04:07 Furosemide (Lasix) 40 mg DAILY PO 09/01/17 09:00 09/06/17 08:35 Losartan Potassium (Cozaar) 100 mg DAILY PO 09/01/17 09:00 09/06/17 08:32 Pravastatin Sodium (Pravachol) 20 mg DAILY PO 09/01/17 09:00 09/06/17 08:32 Metoprolol Tartrate (Lopressor) 100 mg BID PO 09/01/17 09:00 09/06/17 08:33 Pantoprazole Sodium (Protonix) 20 mg DAILY PO 09/01/17 09:00 09/06/17 08:33 Prednisone (Deltasone) 2.5 mg DAILY PO 09/01/17 09:00 09/06/17 08:32 Pharmacy Profile Note 0 ml @ 0 mls/hr UNSCH OTHER 09/02/17 09:45 Vancomycin HCl 1000 mg/Sodium Chloride 250 ml @ 250 mls/hr Q24H IV 09/02/17 12:00 09/05/17 12:08 Senna/Docusate Sodium (Franci-Colace) 2 tab BID PO 09/02/17 21:00 09/06/17 08:32 Magnesium Hydroxide (Milk Of Mag[place]ur[place] Liq) 30 ml Q6H PRN PO CONSTIPATION 09/02/17 12:15 Acetaminophen (Tylenol) 650 mg Q8H PRN PO HEADACHE 09/02/17 23:00 09/02/17 23:02 Levetriacetam (Keppra) 500 mg Q12HR PO 09/05/17 09:00 09/06/17 08:32 Potassium Chloride (KCl) 30 meq DAILY PO 09/06/17 09:00 09/06/17 08:33 Aspirin (Aspirin Chew) 81 mg DAILY PO 09/06/17 09:00 09/06/17 08:33 Heparin Sodium (Porcine) (Heparin Inj) 5,000 units Q12HR SQ 09/06/17 09:00 09/06/17 08:34 Acetaminophen/ Hydrocodone Bitart ([place] 10-325 Mg) 1 tab Q6H PRN PO PAIN 6-10 09/06/17 12:15 09/06/17 12:45 SOCIAL HISTORY: Positive tobacco 1/2-1 pack a day. No alcohol. No illicit drugs. OBJECTIVE: Vital Signs Date Time Temp Pulse Resp B/P (MAP) Pulse Ox O2 Delivery O2 Flow Rate FiO2 09/06/17 12:00 80 18 105/54 (71) 92 09/06/17 08:57 97 Nasal Cannula 3.00 09/06/17 08:00 98.5 90 18 118/75 (89) 100 09/06/17 04:26 99 18 125/79 (94) 97 09/06/17 00:00 98.3 98 18 133/74 (93) 97 09/05/17 20:10 97.7 90 20 116/59 (78) 95 09/05/17 20:00 92 09/05/17 19:36 98 Nasal Cannula 2.00 Laboratory Tests Test 09/05/17 06:52 White Blood Count 9.6 TH/MM3 Red Blood Count 4.44 MIL/MM3 Hemoglobin 13.6 GM/DL Hematocrit 40.1 % Mean Corpuscular Volume 90.3 FL Mean Corpuscular Hemoglobin 30.6 PG Mean Corpuscular Hemoglobin Concent 33.9 % Red Cell Distribution Width 13.6 % Platelet Count 298 TH/MM3 Mean Platelet Volume 7.3 FL Neutrophils (%) (Auto) 67.1 % Lymphocytes (%) (Auto) 19.7 % Monocytes (%) (Auto) 9.4 % Eosinophils (%) (Auto) 3.1 % Basophils (%) (Auto) 0.7 % Neutrophils # (Auto) 6.5 TH/MM3 Lymphocytes # (Auto) 1.9 TH/MM3 Monocytes # (Auto) 0.9 TH/MM3 Eosinophils # (Auto) 0.3 TH/MM3 Basophils # (Auto) 0.1 TH/MM3 CBC Comment DIFF FINAL Differential Comment Laboratory Tests Test 09/05/17 06:52 09/06/17 04:25 Blood Urea Nitrogen 19 MG/DL 26 MG/DL Creatinine 1.08 MG/DL 1.31 MG/DL Random Glucose 109 MG/DL 109 MG/DL Total Protein 7.1 GM/DL 7.0 GM/DL Albumin 3.3 GM/DL 3.2 GM/DL Calcium Level 10.2 MG/DL 10.5 MG/DL Phosphorus Level 4.4 MG/DL 5.1 MG/DL Magnesium Level 1.6 MG/DL 2.1 MG/DL Alkaline Phosphatase 46 U/L 53 U/L Aspartate Amino Transf (AST/SGOT) 16 U/L 15 U/L Alanine Aminotransferase (ALT/SGPT) 17 U/L 17 U/L Total Bilirubin 0.7 MG/DL 0.6 MG/DL Sodium Level 143 MEQ/L 143 MEQ/L Potassium Level 3.5 MEQ/L 3.4 MEQ/L Chloride Level 102 MEQ/L 100 MEQ/L Carbon Dioxide Level 33.0 MEQ/L 33.2 MEQ/L Anion Gap 8 MEQ/L 10 MEQ/L Estimat Glomerular Filtration Rate 50 ML/MIN 40 ML/MIN Microbiology Date/Time Source Procedure Growth Status 09/03/17 20:00 Blood Peripheral Aerobic Blood Culture - Preliminary NO GROWTH IN 3 DAYS Resulted 09/03/17 20:00 Blood Peripheral Anaerobic Blood Culture - Preliminary NO GROWTH IN 3 DAYS Resulted 09/03/17 19:50 Blood Peripheral Aerobic Blood Culture - Preliminary NO GROWTH IN 3 DAYS Resulted 09/03/17 19:50 Blood Peripheral Anaerobic Blood Culture - Preliminary NO GROWTH IN 3 DAYS Resulted IMAGING: Last 72 hours Impressions Myocardial Perfusion Scan Nuc Med 09/06/17 0000 Signed Impressions: Service Date/Time: August 13:54 - CONCLUSION: 1. Inferior wall ischemia. 2. Global hypokinesia with reduced EF of 37%%. RISK CATEGORY: Low (<1%% Annual Mortality Rate) Jordan Epstein MD Brain MRI 09/04/17 0600 Signed Impressions: Service Date/Time: Monday, September 04, 2017 15:32 - CONCLUSION: 1. Near interval resolution of previously noted T2 hyperintense subarachnoid fluid in the parietal and occipital lobes. There is no residual restricted diffusion, meningeal enhancement or significant blood products. Jordan Epstein MD Brain MRI 09/02/17 0000 Signed Impressions: Service Date/Time: Saturday, September 02, 2017 12:49 - CONCLUSION: 1. Interval development of T2 hyperintense fluid in the subarachnoid space in the parietal and occipital lobes which may represent either subarachnoid blood or proteinaceous exudate. 2. No evidence of acute infarct or parenchymal hemorrhage. 3. No evidence of developing intra-axial edema. Carlin Walters MD Microbiology Date/Time Source Procedure Growth Status 09/03/17 20:00 Blood Peripheral Aerobic Blood Culture - Preliminary NO GROWTH IN 1 DAY Resulted 09/03/17 20:00 Blood Peripheral Anaerobic Blood Culture - Preliminary NO GROWTH IN 1 DAY Resulted 09/03/17 19:50 Blood Peripheral Aerobic Blood Culture - Preliminary NO GROWTH IN 1 DAY Resulted 09/03/17 19:50 Blood Peripheral Anaerobic Blood Culture - Preliminary NO GROWTH IN 1 DAY Resulted 09/01/17 19:07 Cerebral Spinal Fluid Lumbar Puncture Fungal Smear - Final NO FUNGAL ELEMENTS SEEN. Resulted 09/01/17 19:07 Cerebral Spinal Fluid Lumbar Puncture Fungal Culture Pending Resulted 09/01/17 19:07 Cerebral Spinal Fluid Lumbar Puncture Acid Fast Stain - Final NO ACID FAST BACILLI SEEN Resulted 09/01/17 19:07 Cerebral Spinal Fluid Lumbar Puncture Mycobacterial Culture Pending Resulted 09/01/17 19:07 Cerebral Spinal Fluid Lumbar Puncture Gram Stain - Final Complete 09/01/17 19:07 Cerebral Spinal Fluid Lumbar Puncture CSF Culture - Final NO GROWTH IN 72 HOURS Complete PHYSICAL EXAMINATION: GENERAL: No acute distress. Awake, alert and oriented. HEENT: No icterus. Oropharynx has moist mucosa, without visible lesions. NECK: Supple, without adenopathy. LUNGS: Clear breath sounds. CARDIOVASCULAR: Regular rate and rhythm, without murmurs, rubs or gallops. ABDOMEN: Bowel sounds present, soft, no tenderness appreciated. Her bowel sounds are diminished, however. EXTREMITIES: No clubbing, cyanosis or edema. Ecchymoses at the Posterior left shoulder. SKIN: No rash. NEUROLOGIC: The patient is alert and oriented. No gross focal findings. PSYCHIATRIC: Calm and cooperative. IMPRESSION: 1. Positive blood culture. Questionable etiology. The patient has had no recent instrumentation to suggest a possible portal of entry for the staph epidermidis in the blood. 2. Urinary tract infection due to Escherichia coli. 3. Altered mental status resolved. Cerebrospinal fluid evaluation was unremarkable. RECOMMENDATIONS: Continue vancomycin for the Staph coagulase-negative for 3 more days. Until 11/09. She is [facility] to [facility]. Antibiotics can be continued there. Dionisio Cotter MD Sep 06, 2017 16:12
[2017-09-06] MEDS: VANCOMYCIN 1,000 MG/NS 250 ML IV SCH ×2 (17:15)
--- NOTE | 2017-09-06 21:16 | MG ---
cc: Markie Lechuga MD EEG RECORD #[id number] Mild asymmetric right posterior hemispheric slowing 20-50 microvolts followed by attenuation. Generalized slowing suggestive of drowsy state. Occasional tiny right posterior sharp transients. Tiny phase reversal. Reduced driving with photic stimulation. Single lead EKG showing sinus rhythm. INTERPRETATION: Asymmetric right posterior hemispheric slowing. Occasional sharp transients suggestive of structural lesion or mild cortical irritability in that region. Clinical correlation. Markie Lechuga MD MG/rt , 09:04 PM , 09:16 PM
[2017-09-07] VITALS: BP 127/74; PULSE 80; RESP 18; TEMP 97.7; O2SAT 93
[2017-09-07 07:43] VITALS: BP 134/65; PULSE 85; RESP 18; TEMP 98; O2SAT 98
[2017-09-07 08:03] LABS: CREATININE 1.49 MG/DL (0.50-1.00); GLOMERULAR FILTRATION RATE 34 ML/MIN (>89)
[2017-09-07] MEDS: PRAVASTATIN SOD 20 MG TAB PO SCH (08:06)
[2017-09-07] MEDS: METOPROLOL TARTRATE 100 MG TAB PO SCH (08:06)
[2017-09-07] MEDS: LOSARTAN 50 MG TAB PO SCH (08:06)
[2017-09-07] MEDS: ASPIRIN 81 MG CHEW TAB PO SCH (08:07)
[2017-09-07] MEDS: PANTOPRAZOLE SOD 20 MG DELAYED RELEASE TAB PO SCH (08:07)
[2017-09-07] MEDS: predniSONE 5 MG TAB PO SCH (08:07)
[2017-09-07] MEDS: levETIRAcetam 500 MG TAB PO SCH (08:07)
[2017-09-07] MEDS: FUROSEMIDE 40 MG TAB PO SCH (08:07)
[2017-09-07] MEDS: POTASSIUM CHLORIDE 10 MEQ CONTROLLED RELEASE TAB PO SCH (08:08)
[2017-09-07] MEDS: DOCUSATE SODIUM 50 MG/SENNA 8.6 MG TAB PO SCH (08:08)
[2017-09-07] MEDS: HEPARIN SODIUM - SQ 10,000 UNITS/ML VIAL SQ SCH (08:08)
[2017-09-07] MEDS: ACETAMINOPHEN/HYDROcodone 325 MG/10 MG TAB PO PRN ×2 (08:17→13:54)
--- NOTE | 2017-09-07 08:28 | HHI.PR ---
Subjective Remarks slept from2-6 am no hallucinations Objective Vital Signs Date Time Temp Pulse Resp B/P (MAP) Pulse Ox O2 Delivery O2 Flow Rate FiO2 09/07/17 07:43 98.0 85 18 134/65 (88) 98 09/07/17 00:00 97.7 80 18 127/74 (91) 93 09/06/17 23:00 80 09/06/17 20:56 96 Nasal Cannula 3.00 09/06/17 20:00 97.9 83 18 124/72 (89) 92 09/06/17 16:00 97.6 97 18 98/55 (69) 98 09/06/17 14:00 18 09/06/17 12:00 80 18 105/54 (71) 92 09/06/17 12:00 79 09/06/17 08:57 97 Nasal Cannula 3.00 I/O 09/06/17 09/06/17 09/06/17 09/07/17 09/07/17 09/07/17 07:00 15:00 23:00 07:00 15:00 23:00 # Voids 1 Result Diagram: 09/05/17 0652 09/07/17 0509 Objective Remarks awake alert face sym moves all follows commands well speech clear knows month and yr vff moves all well looks great today Assessment and Plan Assessment and Plan imp LP neg eeg some mild r changes +/- sharps on keppra blood and urine cx pos plan hsv pcr neg off acyclovir i dw med team watch renal fx daily on that ivf keppra change to po mri the posterior fluid resolved some hallucinations yest could have been sleep deprivation or keppra will watch ? dc soon? 09/06/17 doing well oriented ready for dc neurowise will recheck eeg and if neg dc keppra have cards see for 12 beat VT run 09/07/17 cards on case loks well neurowise repeat eeg still some r sharps so stay on keprra ok to rehab when cards clears and will fu office Brock Laughlin MD Sep 07, 2017 08:28
--- NOTE | 2017-09-07 09:31 | PD.CARD.PN ---
Subjective Subjective Remarks No further arrhythmia noted overnight. Patient remains asymptomatic with no chest pain, shortness breath, or palpitations. The pain is for the patient to go to [facility]. Objective Medications Current Medications Medications (Trade) Dose Ordered Sig/Valdez Route Start Time Stop Time Status Last Admin (NS Flush) 2 ml BID IV FLUSH 09/01/17 09:00 09/06/17 23:14 (NS Flush) 2 ml UNSCH PRN IV FLUSH 09/01/17 00:30 (Vasotec Inj) 1.25 mg Q4H PRN IV PUSH 09/01/17 00:30 (Zofran Inj) 4 mg Q6HR PRN IV PUSH 09/01/17 04:00 09/01/17 04:07 (Lasix) 40 mg DAILY PO 09/01/17 09:00 09/07/17 08:07 (Cozaar) 100 mg DAILY PO 09/01/17 09:00 09/07/17 08:06 (Pravachol) 20 mg DAILY PO 09/01/17 09:00 09/07/17 08:06 (Lopressor) 100 mg BID PO 09/01/17 09:00 09/07/17 08:06 (Protonix) 20 mg DAILY PO 09/01/17 09:00 09/07/17 08:07 (Deltasone) 2.5 mg DAILY PO 09/01/17 09:00 09/07/17 08:07 Pharmacy Profile Note 0 ml @ 0 mls/hr UNSCH OTHER 09/02/17 09:45 Vancomycin HCl 1000 mg/Sodium Chloride 250 ml @ 250 mls/hr Q24H IV 09/02/17 12:00 09/06/17 17:15 (Franci-Colace) 2 tab BID PO 09/02/17 21:00 09/06/17 08:32 (Milk Of Magnesia Liq) 30 ml Q6H PRN PO 09/02/17 12:15 (Tylenol) 650 mg Q8H PRN PO 09/02/17 23:00 09/02/17 23:02 (Keppra) 500 mg Q12HR PO 09/05/17 09:00 09/07/17 08:07 (KCl) 30 meq DAILY PO 09/06/17 09:00 09/07/17 08:08 (Aspirin Chew) 81 mg DAILY PO 09/06/17 09:00 09/07/17 08:07 (Heparin Inj) 5,000 units Q12HR SQ 09/06/17 09:00 09/07/17 08:08 (Happy 10-325 Mg) 1 tab Q6H PRN PO 09/06/17 12:15 09/07/17 08:17 Vital Signs / I&O Vital Signs Date Time Temp Pulse Resp B/P (MAP) Pulse Ox O2 Delivery O2 Flow Rate FiO2 09/07/17 07:43 98.0 85 18 134/65 (88) 98 09/07/17 00:00 97.7 80 18 127/74 (91) 93 09/06/17 23:00 80 09/06/17 20:56 96 Nasal Cannula 3.00 09/06/17 20:00 97.9 83 18 124/72 (89) 92 09/06/17 16:00 97.6 97 18 98/55 (69) 98 09/06/17 14:00 18 09/06/17 12:00 80 18 105/54 (71) 92 09/06/17 12:00 79 I/O 09/06/17 09/06/17 09/06/17 09/07/17 09/07/17 09/07/17 06:59 14:59 22:59 06:59 14:59 22:59 # Voids 1 Physical Exam GENERAL: Well-developed well-nourished. In no acute distress. NECK: No carotid bruits. No JVD. CARDIOVASCULAR: Regular rate and rhythm. No murmur appreciated. RESPIRATORY: No accessory muscle use. Clear to auscultation. Breath sounds equal bilaterally. MUSCULOSKELETAL: No clubbing or cyanosis. No edema. NEUROLOGICAL: Awake and alert. Normal speech. Laboratory Laboratory Tests Test 09/07/17 05:09 Creatinine 1.49 MG/DL Estimat Glomerular Filtration Rate 34 ML/MIN Imaging Last Impressions Myocardial Perfusion Scan Nuc Med 09/06/17 0000 Signed Impressions: Service Date/Time: August 13:54 - CONCLUSION: 1. Inferior wall ischemia. 2. Global hypokinesia with reduced EF of 37%%. RISK CATEGORY: Low (<1%% Annual Mortality Rate) Jordan Epstein MD Brain MRI 09/04/17 0600 Signed Impressions: Service Date/Time: Monday, September 04, 2017 15:32 - CONCLUSION: 1. Near interval resolution of previously noted T2 hyperintense subarachnoid fluid in the parietal and occipital lobes. There is no residual restricted diffusion, meningeal enhancement or significant blood products. Jordan Epstein MD Neck Magnetic Resonance Angiography 09/01/17 0000 Signed Impressions: Service Date/Time: Friday, September 01, 2017 12:09 - CONCLUSION: 1. No evidence of significant stenosis in the extracranial carotid and vertebral arteries. 2. Improved visualization of the intracranial vessels following administration of contrast compared to nonenhanced MRA. There is no evidence of distal left vertebral artery stenosis or focal areas of [id number] narrowing in the proximal MCAs. Carlin Walters MD Lumbar Puncture Fluoroscopy 09/01/17 0000 Signed Impressions: Service Date/Time: Friday, September 01, 2017 19:14 - CONCLUSION: Uncomplicated fluoroscopically guided lumbar puncture. Gordon Rodriguez Jr., MD Head Magnetic Resonance Angiography 09/01/17 0000 Signed Impressions: Service Date/Time: Friday, September 01, 2017 12:09 - CONCLUSION: 1. Suboptimal visualization of the intracranial vessels do to motion artifact. 2. Irregularity is evident throughout the middle and posterior cerebral arteries. 3. Focal areas of diminished flow related enhancement which may represent focal stenoses however considering the amount of background motion these may be artifactual. Carlin Walters MD Chest CT 09/01/17 0000 Signed Impressions: Service Date/Time: Friday, September 01, 2017 10:13 - CONCLUSION: 1. 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 2. No suspicious pulmonary mass or acute airspace disease. 3. Moderate cardiomegaly with calcific described disease of the coronary arteries. 4. Simple left renal cyst. 5. Significant bilateral shoulder arthropathy. Carlin Walters MD Neck CTA [id number] Signed Impressions: Service Date/Time: Thursday, August 31, 2017 23:08 - CONCLUSION: Negative CTA of the carotids. Gordon Huerta MD Head CTA [id number] Signed Impressions: Service Date/Time: Thursday, August 31, 2017 23:08 - CONCLUSION: No evidence of vessel truncation. 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 Gordon Huerta MD Head CT [id number] Signed Impressions: Service Date/Time: Thursday, August 31, 2017 22:18 - CONCLUSION: 1. No acute findings in the brain. Gordon Huerta MD Chest X-Ray [id number] Signed Impressions: Service Date/Time: Thursday, August 31, 2017 22:24 - CONCLUSION: 1. No focal infiltrates seen. 2. 1.8 cm focal opacity right perihilar region of uncertain significance; cannot exclude a focal mass. Gordon Huerta MD Assessment and Plan Assessment and Plan 76-year-old female with past medical history of HTN, HLD, COPD, GERD who initially presented to the hospital 09/01 with altered mental status and was found to have UTI and bacteremia. The patient had an asymptomatic 12 beat run of NSVT early on 09/06. Nonsustained ventricular tachycardia: Suspect secondary to increased adrenergic tone from recent infection and encephalopathy. Echocardiogram 09/03 was essentially normal. Lexiscan was mildly positive but low risk, would recommend medical management at this time. Continue beta-abbey. Replenish electrolytes. After the patient gets to rehab, could repeat 24 hour Holter monitor, if recurrent V. tach, would recommend EP study at that time. Hypertension: BP has been lower, DC HCTZ. Continue metoprolol and losartan. The patient is clear for discharge to rehabilitation from a cardiology perspective. We will sign off at this time, please feel free to call with any questions. Discussed Condition With Dr. Allen, patient, Tim Savage Sep 07, 2017 09:31
[2017-09-07 09:46] VITALS: PULSE 77
[2017-09-07 11:33] LABS: ALBUMIN 3.5 GM/DL (3.4-5.0); BICARBONATE 24.8 MEQ/L (21.0-32.0); BLOOD UREA NITROGEN 30 MG/DL (7-18); CALCIUM 10.4 MG/DL (8.5-10.1); CHLORIDE 103 MEQ/L (98-107); GLUCOSE,RANDOM 83 MG/DL (74-106); SODIUM (NA) 140 MEQ/L (136-145)
[2017-09-07 11:37] LABS: ALT (GPT) 18 U/L (10-53); AST (GOT) 18 U/L (15-37)
[2017-09-07 11:39] LABS: ALKALINE PHOSPHATASE 59 U/L (45-117); TOTAL BILIRUBIN ADULT 0.5 MG/DL (0.2-1.0); TOTAL PROTEIN 7.1 GM/DL (6.4-8.2)
[2017-09-07 12:03] VITALS: BP 128/60; PULSE 76; RESP 18; TEMP 98.3; O2SAT 93
[2017-09-07] MEDS ORDERED: LEVE500 PO (12:31)
[2017-09-07] MEDS ORDERED: VANC1000P IV (12:31)
[2017-09-07] MEDS: VANCOMYCIN 1,000 MG/NS 250 ML IV SCH ×2 (12:51)
[2017-09-07] MEDS: SODIUM CHLORIDE 0.9% FLUSH 10 ML FLUSH IV FLUSH SCH (13:54)
[2017-09-07 16:00] VITALS: BP 126/60; PULSE 78; RESP 18; TEMP 98; O2SAT 92
--- NOTE | 2017-09-07 16:31 | RADRPT ---
EXAM DATE/TIME: 09/07/2017 14:45 [facility] COMPARISON: No previous studies available for comparison. INDICATIONS : Elevated labs. MEDICAL HISTORY : Hypercholesterolemia. Congestive heart failure. Congestive heart failure. Arthritis. SURGICAL HISTORY : Hysterectomy. Cardiac catheterization. ENCOUNTER: Initial ACUITY: 1 day PAIN SCORE: 0/10 LOCATION: Bilateral flank MEASUREMENTS: RIGHT KIDNEY: 9.8 x 4.7 x 4.7 cm LEFT KIDNEY: 9.5 x 4.3 x 5.2 cm FINDINGS: RIGHT KIDNEY: Increased renal cortical echogenicity without evidence for hydronephrosis or stone. There are multipl e hypoechoic cystic lesions with the largest measuring 9 x 8 x 8 mm in the mid pole. LEFT KIDNEY: Increased renal cortical echogenicity without evidence hydronephrosis or stone. Single anechoic cyst in the inferior pole measuring 1.9 x 1.8 x 1.7 cm. BLADDER: Within normal limits given the degree of distension. CONCLUSION: 1. Increased renal cortical echogenicity consistent with medical renal disease. 2. No evidence for obstructive uropathy. 3. Bilateral renal cysts, as above. Jordan Epstein MD on September 07, 2017 at 16:27 Board Certified Radiologist. This report was verified electronically.
[2017-09-07 17:41] VITALS: O2SAT 92
[2017-09-07 17:55] LABS: BACTERIA, URINE RARE /hpf; BILIRUBIN, URINE NEG (NEG); BLOOD, URINE NEG (NEG); GLUCOSE,URINE NEG (NEG); HYALINE CAST, URINE 29 /lpf (RARE); KETONE, URINE NEG (NEG); NITRITE,URINE NEG (NEG); SQUAMOUS EPITHELIAL CELL URINE 26 /hpf (0-5); URINE COLOR YELLOW (YELLW/STRAW); URINE LEUKOCYTE ESTERASE LARGE (NEG)
[2017-09-07 18:19] LABS: CREATININE, RANDOM URINE 54.6 MG/DL
--- NOTE | 2017-09-07 23:11 | HHI.DS ---
Discharge Summary Admission Date Sep 01, 2017 at 00:18 Discharge Date: Sep 07, 2017 Admitting Diagnosis Altered mental status/TIA/UTI (1) Encephalopathy ICD Code: G93.40 - Encephalopathy, unspecified Status: Acute (2) CVA (cerebral vascular accident) ICD Code: I63.9 - Cerebral infarction, unspecified (3) UTI (urinary tract infection) ICD Code: N39.0 - Urinary tract infection, site not specified Status: Acute (4) Hypertension ICD Code: I10 - Essential (primary) hypertension (5) Hyperlipidemia ICD Code: E78.5 - Hyperlipidemia, unspecified (6) GERD (gastroesophageal reflux disease) ICD Code: K21.9 - Gastro-esophageal reflux disease without esophagitis (7) Vertigo ICD Code: R42 - Dizziness and giddiness (8) Hypokalemia ICD Code: E87.6 - Hypokalemia Status: Acute Procedures LUMBAR PUNCTURE Brief History - From Admission This is a 76-year-old female with a PMH of HTN, Hyperlipidemia, COPD and Tobacco Abuse who is brought to the ER by EMS secondary to AMS, Stroke Alert initiated in field prior to arrival. Pt unable to provide any history as she is aphasic, not following commands. Per Daughter, pt is AA&Ox4 at baseline, ambulates without difficulty. Today pt noted to be confused, not making sense, slurring speech at approx 3:30pm. On arrival, BP 142/67, HR 77, O2 sat 97% on 2L NC, Afebrile. CBC unremarkable. Chemistry unremarkable with the. GFR 59. Troponin negative. INR 1.2. CXR with no focal infiltrates, 1.8 cm opacity right perihilar region, cannot exclude mass. CT Head negative. 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 CTA Neck negative. S/p Zosyn in ER. CBC/BMP: 09/05/17 0652 09/07/17 0509 Significant Findings Laboratory Tests Test 09/05/17 06:52 09/05/17 11:55 09/06/17 04:25 09/07/17 05:09 Monocytes (%) (Auto) 9.4 % (0.0-8.0) Blood Urea Nitrogen 19 MG/DL (7-18) 26 MG/DL (7-18) 30 MG/DL (7-18) Creatinine 1.08 MG/DL (0.50-1.00) 1.31 MG/DL (0.50-1.00) 1.49 MG/DL (0.50-1.00) Random Glucose 109 MG/DL (74-106) 109 MG/DL (74-106) Albumin 3.3 GM/DL (3.4-5.0) 3.2 GM/DL (3.4-5.0) Calcium Level 10.2 MG/DL (8.5-10.1) 10.5 MG/DL (8.5-10.1) 10.4 MG/DL (8.5-10.1) Carbon Dioxide Level 33.0 MEQ/L (21.0-32.0) 33.2 MEQ/L (21.0-32.0) Estimat Glomerular Filtration Rate 50 ML/MIN (>89) 40 ML/MIN (>89) 34 ML/MIN (>89) Vancomycin Level Trough 16.8 MCG/ML (5.0-10.0) Phosphorus Level 5.1 MG/DL (2.5-4.9) Potassium Level 3.4 MEQ/L (3.5-5.1) Test 09/07/17 16:13 09/07/17 17:00 Urine Turbidity HAZY (CLEAR) Urine Leukocyte Esterase LARGE (NEG) Urine Bacteria RARE /hpf (NONE) Imaging Last Impressions Renal Ultrasound 09/07/17 0000 Signed Impressions: Service Date/Time: Thursday, September 07, 2017 14:45 - CONCLUSION: 1. Increased renal cortical echogenicity consistent with medical renal disease. 2. No evidence for obstructive uropathy. 3. Bilateral renal cysts, as above. Jordan Epstein MD Myocardial Perfusion Scan Nuc Med 09/06/17 0000 Signed Impressions: Service Date/Time: August 13:54 - CONCLUSION: 1. Inferior wall ischemia. 2. Global hypokinesia with reduced EF of 37%%. RISK CATEGORY: Low (<1%% Annual Mortality Rate) Jordan Epstein MD Brain MRI 09/04/17 0600 Signed Impressions: Service Date/Time: Monday, September 04, 2017 15:32 - CONCLUSION: 1. Near interval resolution of previously noted T2 hyperintense subarachnoid fluid in the parietal and occipital lobes. There is no residual restricted diffusion, meningeal enhancement or significant blood products. Jordan Epstein MD Neck Magnetic Resonance Angiography 09/01/17 0000 Signed Impressions: Service Date/Time: Friday, September 01, 2017 12:09 - CONCLUSION: 1. No evidence of significant stenosis in the extracranial carotid and vertebral arteries. 2. Improved visualization of the intracranial vessels following administration of contrast compared to nonenhanced MRA. There is no evidence of distal left vertebral artery stenosis or focal areas of dpdo-my-logscudx narrowing in the proximal MCAs. Carlin Walters MD Lumbar Puncture Fluoroscopy 09/01/17 0000 Signed Impressions: Service Date/Time: Friday, September 01, 2017 19:14 - CONCLUSION: Uncomplicated fluoroscopically guided lumbar puncture. Gordon Rodriguez Jr., MD Head Magnetic Resonance Angiography 09/01/17 0000 Signed Impressions: Service Date/Time: Friday, September 01, 2017 12:09 - CONCLUSION: 1. Suboptimal visualization of the intracranial vessels do to motion artifact. 2. Irregularity is evident throughout the middle and posterior cerebral arteries. 3. Focal areas of diminished flow related enhancement which may represent focal stenoses however considering the amount of background motion these may be artifactual. Carlin Walters MD Chest CT 09/01/17 0000 Signed Impressions: Service Date/Time: Friday, September 01, 2017 10:13 - CONCLUSION: 1. 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 2. No suspicious pulmonary mass or acute airspace disease. 3. Moderate cardiomegaly with calcific described disease of the coronary arteries. 4. Simple left renal cyst. 5. Significant bilateral shoulder arthropathy. Carlin Walters MD Neck CTA [id number] Signed Impressions: Service Date/Time: Thursday, August 31, 2017 23:08 - CONCLUSION: Negative CTA of the carotids. Gordon Huerta MD Head CTA [id number] Signed Impressions: Service Date/Time: Thursday, August 31, 2017 23:08 - CONCLUSION: No evidence of vessel truncation. 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 Gordon Huerta MD Head CT [id number] Signed Impressions: Service Date/Time: Thursday, August 31, 2017 22:18 - CONCLUSION: 1. No acute findings in the brain. Gordon Huerta MD Chest X-Ray [id number] Signed Impressions: Service Date/Time: Thursday, August 31, 2017 22:24 - CONCLUSION: 1. No focal infiltrates seen. 2. 1.8 cm focal opacity right perihilar region of uncertain significance; cannot exclude a focal mass. Gordon Huerta MD PE at Discharge GENERAL: She is awake and alert ORIENTED X3 MUCH IMPROVED- TALKATIVE AND COOPERATIVE SKIN: Warm and dry. HEAD: Atraumatic. Normocephalic. EYES: Pupils equal and round. No scleral icterus. No injection or drainage. Extraocular muscles appear grossly intact ENT: No nasal bleeding or discharge. Mucous membranes pink and moist. Tongue is midline NECK: Trachea midline. No JVD. Supple CARDIOVASCULAR: Regular rate and rhythm. S1-S2 no S3 or S4 NO HEAVE OR THRILL OR RUB RESPIRATORY: No accessory muscle use. Clear to auscultation. Breath sounds equal bilaterally. GASTROINTESTINAL: Abdomen soft, non-tender, nondistended. Hepatic and splenic margins not palpable. MUSCULOSKELETAL: Extremities without clubbing, cyanosis, or edema. No obvious deformities. NEUROLOGICAL: Awake and alert. No obvious cranial nerve deficits. Motor grossly within normal limits. Five out of 5 muscle strength in the arms and legs. GOOD SPEECH PSYCHIATRIC: Appropriate mood and affect; insight and judgment ARE NORMAL- NO LONGER APHASIC-RESOLVED Hospital Course 09/07. Acute kidney injury with creatinine 1.5. Likely secondary to supratherapeutic vancomycin. Discussed with pharmacy. Continue on vancomycin. Ultrasound kidneys with increased echogenicity, however no hydronephrosis. Urinalysis does not appear infectious. Likely secondary to vancomycin. Expect improved. His best with [facility], who confirms that they can continue to monitor at [place]. Patient will continue on vancomycin to complete 09/09 as per infectious disease. 1. Encephalopathy: MUCH IMPROVED acute episode of AMS noted by family, previously AA&Ox4 at baseline per Daughter. Neuro Checks. CT Head w/ no acute findings, images reviewed by me. Possibly compounded by UTI, continue w/ IV Rocephin. 2. CVA RULED OUT slurred speech/confusion noted at 3:30pm, outside TPA window , previously aphasic, now able to say "yes". FOLLOWING COMMANDS NOW. CTA Head w / no truncation, 3mm calcified aneurysm right ICA, CTA Neck negative, images reviewed by me. IVF, PT/Speech Consult for eval/tx. Consult Neurology for further evaluation. MUCH IMPROVED FROM YESTERDAY AWAKE AND ALERT- JOKING AROUND--POSSIBLE BENADRYL/ UNISOM OVERDOSE UNINTENTIONALLY 3. UTI: E.COLI UTI U/a w/ UTI, follow up cultures, continue w/ IV Abx, IVF. VANCO- HYPOKALEMIA WILL REPLACE AGAIN Hypertension resume home medications Hyperlipidemia resume all medications DEMENTIA AM LABS PT, OT, and ST 4. DVT Prophylaxis: SCD/Teds OSTEOARTHRITIS- RESTART PAIN MEDS 12 BEAT RUN OF VTACH- TO HAVE STRESS TEST TODAY DW RN AND PT AND CM TO [facility] [place] WHEN SHE IS CLEARED BY ID, NEURO AND CARDIO AWAIT SENSITIVITIES ON CULTURES ON VANCO, COAG NEGATIVE STAPH- CONSULT ID 5. Social work for d/c planning as needed. Pt Condition on Discharge: Good Discharge Disposition: Rehab Inpatient Discharge Time: > 30 minutes Discharge Instructions DIET: Follow Instructions for: Heart Healthy Diet Activities you can perform: Regular-No Restrictions Follow up Referrals: Cardiology - 2 Weeks with Mat Allen MD Neurology - 2 Weeks with Brock Laughlin MD New Medications: Vancomycin Inj (Vancomycin Inj) 1 Gram Inj 1000 MG IV DAILY for Infection for 2 Days, BAG 0 Refills Levetiracetam (Keppra) 500 Mg Tab 500 MG PO Q12HR for Seizure Control for 30 Days, TAB Continued Medications: Aspirin (Aspirin) 81 Mg Chew 81 MG CHEW DAILY, TAB 0 Refills Diphenhydramine (Sleep) (Unisom Sleepgels) 50 Mg Cap 50 MG PO HS PRN for INSOMNIA, CAP Furosemide (Furosemide) 40 Mg Tab 40 MG PO DAILY, #30 TAB 0 Refills Lovastatin (Lovastatin) 20 Mg Tab 20 MG PO DAILY for Cholesterol Management, #30 TAB 0 Refills Meclizine (Meclizine) 12.5 Mg Tab 12.5 MG PO DIRECTED PRN for VERTIGO, TAB 0 Refills Metoprolol Tartrate (Metoprolol Tartrate) 100 Mg Tab 100 MG PO BID, #60 TAB 0 Refills Omeprazole (Omeprazole) 20 Mg Tab 20 MG PO DAILY, #30 TAB 0 Refills Prednisone (Prednisone) 2.5 Mg Tab 2.5 MG PO DAILY, TAB 0 Refills Promethazine (Promethazine) 12.5 Mg Tab 12.5 MG PO Q6H PRN for NAUSEA OR VOMITING, TAB 0 Refills Discontinued Medications: Hydrochlorothiazide (Hydrochlorothiazide) 12.5 Mg Tab 12.5 MG PO DAILY, #30 TAB 0 Refills Losartan (Losartan) 100 Mg Tab 100 MG PO DAILY for Blood Pressure Management, #30 TAB [address] (EC-Naprosyn) 500 Mg Tabdr 500 MG PO BID, #60 TAB 0 Refills Go Bateman MD Sep 07, 2017 23:11
[2017-09-08] MEDS ORDERED: PHARMACY ORDERED LAB ONE (11:45)
== END 2017-09-07 19:13 | DRG 917 ==
LOC: NEPE 22:08 → NEDA 09-01 00:18 → N06A 09-01 01:26 → N05A 09-01 19:44 → N05B 09-01 19:45 → N05A 09-01 19:47
PROVIDERS: ADMIT Internal Medicine; ATTEND Internal Medicine
PROC: 009U3ZX Drainage of Spinal Canal, Percutaneous Approach, Diagnostic (ICD-10-PCS; principal; 2017-09-01)
DX: T45.0X1A Poisoning by antiallergic and antiemetic drugs, accidental (unintentional), initial encounter (principal); G93.40 Encephalopathy, unspecified; I47.2 Ventricular tachycardia; B95.7 Other staphylococcus as the cause of diseases classified elsewhere; R78.81 Bacteremia; N39.0 Urinary tract infection, site not specified; R47.01 Aphasia; E87.6 Hypokalemia; J44.9 Chronic obstructive pulmonary disease, unspecified; B96.20 Unspecified Escherichia coli [E. coli] as the cause of diseases classified elsewhere; E78.5 Hyperlipidemia, unspecified; F17.210 Nicotine dependence, cigarettes, uncomplicated; K21.9 Gastro-esophageal reflux disease without esophagitis; F03.90 Unspecified dementia, unspecified severity, without behavioral disturbance, psychotic disturbance, mood disturbance, and anxiety; M19.90 Unspecified osteoarthritis, unspecified site
CPT/HCPCS: 36600; 62270; 70450; 70496; 70498; 70544; 70548; 70551; 70553; 71045; 71260; 76775; 76937; 77003; 78452; 80053; 80061; 80202; 81001; 82140; 82570; 82607; 82805; 82945; 82948; 83036; 83735; 83880; 84100; 84157; 84300; 84425; 84439; 84443; 84484; 85025; 85610; 85652; 85730; 86038; 86140; 86403; 86592; 87015; 87040; 87070; 87077; 87086; 87102; 87116; 87186; 87205; 87206; 87529; 88108; 89051; 93005; 93017; 93306; 95819; 96374; A9502; A9579; J0133; J0290; J0696; J1644; J1953; J2060; J2405; J2543; J2785; J3370; J3475; J7050; J7512; Q9967

== ENCOUNTER 2018-03-25 17:59 | Observation (INO) ==
[2018-03-25] MEDS ORDERED: Sod Chloride 0.9% Inj 1,000 ML IV.SIG SCH (18:45)
--- NOTE | 2018-03-25 19:00 | ED ---
HPI General Chief complaint: Weakness Stated complaint: poss uti Time Seen by Provider: 03/25/18 18:44 History of Present Illness HPI Narrative: 77-year-old female with history of hypertension, who presents today with complaint of nausea vomiting. Patient states she has had it since yesterday. Patient reports that she has had burning with urination. She denies any fevers, chills. She was noted to be throwing up when I entered the room. We did give her Zofran. She denies any abdominal pains. She denies any chest pain, chest pressure. There is no other symptoms. She does state that she had a can of beans dropped out of the cupboard and struck her breast and her left foot. She has a large bruise over her breast and on the top of her foot. There are no other complaints at the time of examination. Related Data Home Medications Medication Instructions Recorded Confirmed alendronate [Fosamax] 70 mg PO QWEEK 03/25/18 03/25/18 aspirin 81 mg PO DAILY 03/25/18 03/25/18 hydrocodone-acetaminophen 1 tab PO Q4-6H PRN 03/25/18 03/25/18 levetiracetam [Keppra] 500 mg PO BID 03/25/18 03/25/18 lovastatin 20 mg PO DAILY 03/25/18 03/25/18 metoprolol tartrate 100 mg PO BID 03/25/18 03/25/18 oysbxmzwfios-mmya-awito acid 1 tab PO DAILY 03/25/18 03/25/18 [Centrum Complete] naproxen 500 mg PO BID 03/25/18 03/25/18 niacin 500 mg PO BID 03/25/18 03/25/18 omega 6-tgz-boe-fish oil [Fish Oil] 1,000 mg PO BID 03/25/18 03/25/18 ondansetron [Zofran ODT] 4 mg PO Q6-8H PRN 03/25/18 03/25/18 potassium chloride 10 meq PO DAILY 03/25/18 03/25/18 prednisone 5 mg PO DAILY 03/25/18 03/25/18 promethazine 12.5 mg PO Q6H PRN 03/25/18 03/25/18 Allergies Allergy/AdvReac Type Severity Reaction Status Date / Time No Known Allergies Allergy Unverified 03/25/18 18:10 Review of Systems ROS: all other systems reviewed are negative Constitutional Denies chills and Denies fever(s) Eyes Reports system reviewed and no additional complaints, except as docu ENT Reports system reviewed and no additional complaints, except as docu Cardiovascular Denies chest pain and Denies dyspnea Respiratory Denies chest congestion and Denies cough Gastrointestinal Denies abdominal pain, Reports nausea and Reports vomiting Genitourinary Denies urinary frequency and Denies dysuria Musculoskeletal Denies back pain and Reports other (Left foot pain) Neurologic Denies dizziness, Denies headache(s), Denies focal weakness and Reports weakness (Generalized) [facility] Medical History Medical History COPD (chronic obstructive pulmonary disease) (Acute) H/O: hysterectomy (Acute) Hypertension (Acute) Osteoporosis (Acute) Surgical History Surgical History History of colon resection (Acute) Social History Social History Substance History: No History of Abuse Second Hand Smoke Exposure: Yes Smoking Status: Current some day smoker Tobacco Type: Cigarettes How Often Do You Have a Drink Containing Alcohol: Never Recent Travel in [facility] within the Last 8 Weeks: No Recent Out of Country Travel within the Last 8 Weeks: No Immunization History Tetanus Immunization: Unsure Hx Influenza Vaccine This Season: No Exam Narrative Exam Narrative: GENERAL: Well-developed well-nourished female who is actively vomiting when I entered the room. SKIN: Focused skin assessment warm/dry. Large hematoma over her left breast. She reports this is from when the can of beans fell on her out of the cabinet. HEAD: Atraumatic. Normocephalic. EYES: No scleral icterus. No injection or drainage. ENT: No nasal bleeding or discharge. Mucous membranes pink and moist. NECK: Trachea midline. Supple. CARDIOVASCULAR: Sinus tachycardia with a rate in the 1 teens. No murmur appreciated. RESPIRATORY: No accessory muscle use. Clear to auscultation. Breath sounds equal bilaterally. GASTROINTESTINAL: Abdomen soft, non-tender, nondistended. Hepatic and splenic margins not palpable. MUSCULOSKELETAL: No obvious deformities. There is a bruise over the dorsum of the left foot. No bony deformity appreciated. NEUROLOGICAL: Awake and alert. No obvious cranial nerve deficits. Motor grossly within normal limits. Normal speech. Course Initial Documented Vital Signs Temperature 98.3 F 03/25/18 18:05 Pulse Rate 120 H 03/25/18 18:05 Respiratory Rate 20 10/01/18 18:05 Blood Pressure 166/106 H 03/25/18 18:05 Pulse Oximetry 97 03/25/18 18:05 Last Documented Vital Signs Temperature 97.8 F 03/26/18 00:00 Pulse Rate 75 03/26/18 03:30 Respiratory Rate 16 03/26/18 00:00 Blood Pressure 169/78 H 03/26/18 00:00 Pulse Oximetry 92 L 03/26/18 00:00 Sign Out Sign Out Data: Patient Sign Out occurred on 03/25/18 at 19:20. Patient's care was discussed, and care was transferred from Hugo Sorto MD to Marcia Napier MD. Sign Out Comment: 77-year-old female presents with nausea vomiting. Patient also reports urinary symptoms. Labs are pending at this time. She will be signed out to Dr. Napier at change of shift. Disposition will be per Dr. Napier. Last updated by Hugo Sorto MD at 03/25/18 19:07 Post-Handoff Eval: Accepted in transfer of care from Dr. Sorto for follow-up of pending labs/ urinalysis and patient disposition with plan for admission Medical Decision Making MDM Narrative Medical decision making narrative: 77-year-old female with a history of hypertension, presents today with complaints of nausea vomiting. Patient reports symptoms times 2436 hrs. No reported fevers, chills. She was with tachycardia when she arrived. She has been given Zofran and 1 L of fluid. Labs are pending at this time. She will be signed out to Dr. Napier at change of shift. Disposition will be per Dr. Napier. At 8:34 PM lab values grossly normal range EKG is sinus tachycardia with rate of [address] segment flattening mild depression laterally but on review of prior EKGs sounds essentially unchanged. Urinalysis remains pending. UA: wnl discussed with Dr Damian for OBS admission; family reports confusion and slurred speech -- CT brain w/o ordered, patient administered evening dose of Keppra and metoprolol. Patient also identified to have ecchymosis of the left breast and left foot secondary to can falling on her chest wall and foot. Medical Screen Exam Complete: Yes Emergency Medical Condition: Yes Differential Diagnosis Differential Diagnosis: Sepsis versus metabolic derangement versus UTI Medical Records Medical records reviewed: Yes I reviewed the patient's medical records. Lab Data Lab results reviewed: Yes I reviewed the patient's lab results. Result diagrams: 03/25/18 18:20 03/25/18 18:20 Lab Results 03/25/18 03/25/18 03/25/18 Range/Units 18:20 18:20 18:25 CBC w Diff Auto diff final WBC 9.3 (4.0-11.0) th/mm3 RBC 4.08 (4.00-5.30) mil/mm3 Hgb 12.9 (11.6-15.3) gm/dL Hct 38.0 (35.0-46.0) % MCV 93.2 (80.0-100.0) fL MCH 31.5 (27.0-34.0) pg MCHC 33.8 (32.0-36.0) % RDW 13.1 (11.6-17.2) % Plt Count 392 (150-450) th/mm3 MPV 6.7 L (7.0-11.0) fL Neut % (Auto) 76.7 H (16.0-70.0) % Lymph % (Auto) 15.3 (9.0-44.0) % [place] % (Auto) 7.2 (0.0-8.0) % Eos % (Auto) 0.4 (0.0-4.0) % Baso % (Auto) 0.4 (0.0-2.0) % Neut # (Auto) 7.2 (1.8-7.7) th/mm3 Lymph # (Auto) 1.4 (1.0-4.8) th/mm3 [place] # (Auto) 0.7 (0.0-0.9) th/mm3 Eos # (Auto) 0.0 (0.0-0.4) th/mm3 Baso # (Auto) 0.0 (0.0-0.2) th/mm3 WBC Differential . Differential Comment . Sodium 141 (136-145) meq/L Potassium 3.8 (3.5-5.1) meq/L Chloride 105 (98-107) meq/L Carbon Dioxide 23.2 (21.0-32.0) meq/L Anion Gap 13 (5-15) meq/L BUN 16 (7-18) mg/dL Creatinine 0.92 (0.50-1.00) mg/dL Estimated GFR 60 L (>89) mL/min Random Glucose 134 H (74-106) mg/dL Lactic Acid 1.9 (0.4-2.0) mmol/L Calcium 9.3 (8.5-10.1) mg/dL Total Bilirubin 1.0 (0.2-1.0) mg/dL AST 20 (15-37) U/L ALT 23 (10-53) U/L Alkaline Phosphatase 61 (45-117) U/L Total Creatine Kinase 171 (26-192) U/L CK-MB (CK-2) 1.9 (0.5-3.6) ng/mL Troponin I 0.02 (0.02-0.05) ng/mL Total Protein 7.5 (6.4-8.2) g/dL Albumin 3.9 (3.4-5.0) g/dL Urine Color (Yellw/Straw) Urine Clarity (Clear) Urine pH (5.0-8.5) Ur Specific [place] (1.002-1.035) Urine Protein (Neg-Trace) mg/dL Urine Glucose (UA) (Negative) mg/dL Urine Ketones (Negative) mg/dL Urine Occult Blood (Negative) Urine Nitrate (Negative) Urine Bilirubin (Negative) Urine Urobilinogen (Less than 2) mg/dL Ur Leukocyte Esterase (Negative) Urine RBC (0-3) /hpf Urine WBC (0-5) /hpf Amorphous Sediment (None) /hpf Urine Mucus (Occasional) /lpf Micro UA Comment Ur Microscopic Review Urine Culture Comments 03/25/18 03/25/18 Range/Units 21:03 22:02 CBC w Diff WBC (4.0-11.0) th/mm3 RBC (4.00-5.30) mil/mm3 Hgb (11.6-15.3) gm/dL Hct (35.0-46.0) % MCV (80.0-100.0) fL MCH (27.0-34.0) pg MCHC (32.0-36.0) % RDW (11.6-17.2) % Plt Count (150-450) th/mm3 MPV (7.0-11.0) fL Neut % (Auto) (16.0-70.0) % Lymph % (Auto) (9.0-44.0) % [place] % (Auto) (0.0-8.0) % Eos % (Auto) (0.0-4.0) % Baso % (Auto) (0.0-2.0) % Neut # (Auto) (1.8-7.7) th/mm3 Lymph # (Auto) (1.0-4.8) th/mm3 [place] # (Auto) (0.0-0.9) th/mm3 Eos # (Auto) (0.0-0.4) th/mm3 Baso # (Auto) (0.0-0.2) th/mm3 WBC Differential Differential Comment Sodium (136-145) meq/L Potassium (3.5-5.1) meq/L Chloride (98-107) meq/L Carbon Dioxide (21.0-32.0) meq/L Anion Gap (5-15) meq/L BUN (7-18) mg/dL Creatinine (0.50-1.00) mg/dL Estimated GFR (>89) mL/min Random Glucose (74-106) mg/dL Lactic Acid (0.4-2.0) mmol/L Calcium (8.5-10.1) mg/dL Total Bilirubin (0.2-1.0) mg/dL AST (15-37) U/L ALT (10-53) U/L Alkaline Phosphatase (45-117) U/L Total Creatine Kinase 182 (26-192) U/L CK-MB (CK-2) 2.3 (0.5-3.6) ng/mL Troponin I 0.04 (0.02-0.05) ng/mL Total Protein (6.4-8.2) g/dL Albumin (3.4-5.0) g/dL Urine Color Yellow (Yellw/Straw) Urine Clarity Clear (Clear) Urine pH 5.5 (5.0-8.5) Ur Specific [place] 1.025 (1.002-1.035) Urine Protein Trace (Neg-Trace) mg/dL Urine Glucose (UA) Negative (Negative) mg/dL Urine Ketones Trace H (Negative) mg/dL Urine Occult Blood Negative (Negative) Urine Nitrate Negative (Negative) Urine Bilirubin Negative (Negative) Urine Urobilinogen 0.2 (Less than 2) mg/dL Ur Leukocyte Esterase Negative (Negative) Urine RBC 0-3 (0-3) /hpf Urine WBC 0-5 (0-5) /hpf Amorphous Sediment Few H (None) /hpf Urine Mucus Few H (Occasional) /lpf Micro UA Comment Cath-culture not ind Ur Microscopic Review Microscopic reviewed Urine Culture Comments Cath-cult not ind Imaging Data Radiologist's impression: Chest X-Ray 03/25/18 18:45 CONCLUSION: No acute abnormality demonstrated. Scarring of the right lung again noted. Foot X-Ray 03/25/18 19:00 CONCLUSION: Intact left foot. Chronic findings as above. Head CT 03/25/18 23:06 CONCLUSION: 1. No acute intracranial abnormality. . ECG Data EKG Prior to Arrival: No Prior ECG tracings: not available for review Interpretation: Sinus tachycardia rate [address] elevation injury pattern or ectopy noted Discharge Plan Discharge Disposition Patient Disposition: 30 Still Patient Discharge Condition Condition: Stable Discharge Details Diagnosis: Generalized weakness, Sinus tachycardia, Chest wall contusion, Contusion of foot, left Physicians Team ED Provider: Marcia Napier Primary Care Provider: UNKNOWN, Attending Provider: Domenica Damian Status ED Status: Left Department Discharge Information Discharge Date/Time: 03/26/18 00:32
[2018-03-25 19:04] LABS: Baso % (Auto) 0.4 % (0.0-2.0); Eos % (Auto) 0.4 % (0.0-4.0); Hemoglobin 12.9 gm/dL (11.6-15.3); Lymph # (Auto) 1.4 th/mm3 (1.0-4.8); Lymph % (Auto) 15.3 % (9.0-44.0); Mean Corpuscular HGB Conc 33.8 % (32.0-36.0); Mean Corpuscular Hemoglobin 31.5 pg (27.0-34.0); Mean Corpuscular Volume 93.2 fL (80.0-100.0); Mean Platelet Volume 6.7 fL (7.0-11.0); Mono # (Auto) 0.7 th/mm3 (0.0-0.9); Mono % (Auto) 7.2 % (0.0-8.0); Neut # (Auto) 7.2 th/mm3 (1.8-7.7); Neut % (Auto) 76.7 % (16.0-70.0); Platelet Count 392 th/mm3 (150-450); Red Blood Count 4.08 mil/mm3 (4.00-5.30); Red Cell Distribution Width 13.1 % (11.6-17.2); White Blood Count 9.3 th/mm3 (4.0-11.0)
[2018-03-25 19:15] LABS: Chloride 105 meq/L (98-107); Potassium 3.8 meq/L (3.5-5.1); Sodium 141 meq/L (136-145)
[2018-03-25 19:18] LABS: Calcium 9.3 mg/dL (8.5-10.1)
[2018-03-25 19:19] LABS: Albumin 3.9 g/dL (3.4-5.0); Anion Gap 13 meq/L (5-15); Blood Urea Nitrogen 16 mg/dL (7-18); Carbon Dioxide 23.2 meq/L (21.0-32.0); Glucose,Random 134 mg/dL (74-106)
[2018-03-25 19:22] LABS: Alanine Aminotransferase 23 U/L (10-53); Aspartate Aminotransferase 20 U/L (15-37); Glomerular Filtration Rate 60 mL/min (>89)
[2018-03-25 19:23] LABS: Total Protein 7.5 g/dL (6.4-8.2)
[2018-03-25 19:25] LABS: Alkaline Phosphatase 61 U/L (45-117); Creatine Kinase 171 U/L (26-192)
[2018-03-25 19:27] LABS: Troponin I 0.02 ng/mL (0.02-0.05)
--- NOTE | 2018-03-25 19:34 | XR ---
EXAM DATE: 03/25/2018 6:45 PM EDT AGE/SEX: 77 years / Female INDICATIONS: Fever , possible urinary tract infection. CLINICAL DATA: This is the patient's initial encounter. Patient reports that signs and symptoms have been present for 1 day and indicates a pain score of 0/10. MEDICAL/SURGICAL HISTORY: None. None. COMPARISON: [facility] [place] [facility] [place] & [place], 09/14/[place]. . FINDINGS: Mild scarring in the right mid lung again noted; there appear to be some old right rib fractures. No acute pneumonia. No pleural effusion or pneumothorax. Heart size stable, within normal limits. CONCLUSION: No acute abnormality demonstrated. Scarring of the right lung again noted. Electronically signed by: Shad Carranza MD 03/25/2018 7:33 PM EDT
--- NOTE | 2018-03-25 19:35 | XR ---
EXAM DATE: 03/25/2018 7:00 PM EDT AGE/SEX: 77 years / Female INDICATIONS: Left foot bruising, patient dropped can on left foot. CLINICAL DATA: This is the patient's initial encounter. Patient reports that signs and symptoms have been present for 2 days and indicates a pain score of 4/10. MEDICAL/SURGICAL HISTORY: None. None. COMPARISON: No prior exams available for comparison. FINDINGS: No fracture or subluxation demonstrated of the left foot. There is severe hallux valgus. Moderate to severe osteoarthritis seen of the first metatarsophalangea l joint and sesamoids. Second through fifth hammertoe. Tiny heel spur. CONCLUSION: Intact left foot. Chronic findings as above. Electronically signed by: Shad Carranza MD 03/25/2018 7:34 PM EDT
[2018-03-25 19:37] LABS: Creatine Kinase MB 1.9 ng/mL (0.5-3.6)
[2018-03-25 21:05] LABS: Bilirubin,Urine Negative (Negative); Clarity,Urine Clear (Clear); Color,Urine Yellow (Yellw/Straw); Glucose,Urine (UA) Negative (Negative); Leukocyte Esterase,Urine Negative (Negative); Nitrite,Urine Negative (Negative); PH,Urine 5.5 (5.0-8.5); Specific Gravity,Urine 1.025 (1.002-1.035); Urobilinogen,Urine 0.2 mg/dL (Less than 2)
[2018-03-25 21:17] LABS: Amorphous Sediment,Urine Few /hpf; Mucus,Urine Few /lpf (Occasional); RBC,Urine 0-3 /hpf (0-3); WBC,Urine 0-5 /hpf (0-5)
[2018-03-25] MEDS ORDERED: Sodium Chlor 0.9% Inj 500 ML IV.SIG SCH (22:00)
[2018-03-25 22:27] LABS: Creatine Kinase 182 U/L (26-192)
[2018-03-25 22:28] LABS: Troponin I 0.04 ng/mL (0.02-0.05)
[2018-03-25] MEDS ORDERED: levETIRAcetam 500 MG Tablet PO ONE (22:30)
[2018-03-25] MEDS ORDERED: Metoprolol Tartrate 100 MG Tablet PO ONE (22:30)
[2018-03-25 22:40] LABS: Creatine Kinase MB 2.3 ng/mL (0.5-3.6)
[2018-03-25] MEDS ORDERED: Acetaminophen 325 MG Tablet PO PRN (23:06)
[2018-03-25] MEDS ORDERED: Bisacodyl 10 MG Supp RECTAL PRN (23:06)
[2018-03-25] MEDS ORDERED: Sod Chloride 0.9% Inj 1,000 ML IV.CONT SCH (23:15)
[2018-03-25] MEDS ORDERED: levETIRAcetam 500 MG Tablet PO SCH (23:15)
--- NOTE | 2018-03-25 23:35 | CT ---
EXAM DATE: 03/25/2018 11:12 PM EDT AGE/SEX: 77 years / Female INDICATIONS: Weakness. Confusion. CLINICAL DATA: This is the patient's initial encounter. Patient reports that signs and symptoms have been present for 1 day and indicates a pain score of 0/10. MEDICAL/SURGICAL HISTORY: Hypertension. None. RADIATION DOSE: 50.20 CTDI (mGy) COMPARISON: [facility] [place] BRAIN W/O CONTRAST, 09/02/2017. . TECHNIQUE: CT of the head without contrast. Using automated exposure control and adjustment of the mA and/or kV according to patient size, radiation dose was kept as low as reasonably achievable to ob tain optimal diagnostic quality images. DICOM format image data is available electronically for revi ew and comparison. FINDINGS: Cerebrum: Moderate diffuse cerebral atrophy. The ventricles are normal for degree of atrophy. No des dence of midline shift, mass lesion, hemorrhage or acute infarction. No extraaxial fluid collections are seen. Posterior Fossa: The cerebellum and brainstem are intact. The 4th ventricle is midline. The cerebe llopontine angle is unremarkable. Extracranial: The visualized portion of the orbits is intact. Skull: The calvaria is intact. No evidence of skull fracture. CONCLUSION: 1. No acute intracranial abnormality. . Electronically signed by: Jordan Epstein MD 03/25/2018 11:34 PM EDT
[2018-03-26] MEDS ORDERED: Aluminum/Magnesium/Simethacone Susp 30 ML UDC PO ONE (01:31)
[2018-03-26] MEDS: Enoxaparin Inj 40 MG/0.4 ML Syringe SQ SCH ×2 (01:46→23:51)
[2018-03-26 04:43] LABS: Calcium 8.7 mg/dL (8.5-10.1); Carbon Dioxide 26.2 meq/L (21.0-32.0)
[2018-03-26 04:51] LABS: Troponin I 0.05 ng/mL (0.02-0.05)
[2018-03-26 05:03] LABS: CKMB Percent 1.3 % (0.0-4.0); Creatine Kinase MB 3.5 ng/mL (0.5-3.6)
[2018-03-26 07:15] LABS: Baso % (Auto) 0.5 % (0.0-2.0); Eos # (Auto) 0.1 th/mm3 (0.0-0.4); Eos % (Auto) 0.9 % (0.0-4.0); Hematocrit 35.8 % (35.0-46.0); Hemoglobin 11.8 gm/dL (11.6-15.3); Lymph # (Auto) 1.5 th/mm3 (1.0-4.8); Lymph % (Auto) 17.8 % (9.0-44.0); Mean Corpuscular Hemoglobin 31.1 pg (27.0-34.0); Mean Corpuscular Volume 94.1 fL (80.0-100.0); Mean Platelet Volume 6.9 fL (7.0-11.0); Mono # (Auto) 0.8 th/mm3 (0.0-0.9); Mono % (Auto) 9.2 % (0.0-8.0); Neut # (Auto) 6.2 th/mm3 (1.8-7.7); Neut % (Auto) 71.6 % (16.0-70.0); Platelet Count 356 th/mm3 (150-450); Red Cell Distribution Width 13.1 % (11.6-17.2); White Blood Count 8.6 th/mm3 (4.0-11.0)
[2018-03-26] MEDS ORDERED: levETIRAcetam 500 MG Tablet PO SCH (09:00)
[2018-03-26] MEDS ORDERED: Metoprolol Tartrate 100 MG Tablet PO SCH (09:00)
[2018-03-26] MEDS: levETIRAcetam 500 MG Tablet PO SCH ×2 (10:09→21:21)
[2018-03-26] MEDS: Metoprolol Tartrate 100 MG Tablet PO SCH ×2 (10:09→21:21)
[2018-03-26] MEDS: predniSONE 5 MG Tablet PO SCH (10:10)
--- NOTE | 2018-03-26 12:44 | P.HP ---
History of Present Illness Primary Care Physician: UNKNOWN Chief Complaint: nausea and vomiting History of Present Illness: This is a 77-year-old female patient with a known medical history of hypertension, hyperlipidemia who presented to the ED with complaints of nausea and vomiting times 2 days. Patient states that she is been unable to eat past couple days without vomiting. Her appetite has been diminished as well. She denies any recent fevers, chills, cough, shortness of breath, abdominal pain, diarrhea or dysuria. Patient denies any chest pain. It should be noted that patient did have some confusion upon presentation to the ED. A head CT was done which was negative for any acute abnormalities. Confusion has resolved and improved, at time of assessment patient is axOx3. It should be noted that patient presented also with a left breast ecchymotic area as well as ecchymosis on her dorsal aspect of her left foot. Supposedly patient struck her breast and left foot with a can of beans as she was taking them out of the cupboard. Patient does live alone, PT is seen patient today with recommendations for rehab although patient is insisting on going home. Patient does not have anyone at home with her and at this time it is felt that this is an unsafe discharge to discharge her home. - Diagnosis (1) Nausea and vomiting (2) Generalized weakness Review of Systems All other systems reviewed negative except as stated in HPI PMFSH - History History Provided By: Patient - Medical History Medical History: Medical History (Last Reviewed 03/26/18 @ 13:02 by Mely Hidalgo) COPD (chronic obstructive pulmonary disease) H/O: hysterectomy Hypertension Osteoporosis - Surgical History Surgical History: Surgical History (Last Reviewed 03/26/18 @ 13:02 by Mely Hidalgo) History of colon resection - Family History Family History: Family History (Last Updated 03/26/18 @ 13:02 by Mely Hidalgo) Other Family history in first degree relatives is unremarkable - Tobacco History Second Hand Smoke Exposure: Yes Tobacco Use In Past 30 Days: Yes Smoking Status: Current some day smoker Tobacco Type: Cigarettes - Alcohol History How Often Do You Have a Drink Containing Alcohol: Never - Substance Use History Substance History: No History of Abuse - Travel History Recent Travel in the [facility] Within the Last 8 Weeks: No Recent Travel Out of the Country Within the Last 8 Weeks: No - Immunization History Tetanus Immunization: Unsure Hx Influenza Vaccine This Season: No Medications and Allergies Active Medications: Active Medications Acetaminophen (Tylenol) 650 mg PO Q4H PRN PRN Reason: Temp > 100.4 Hydrocodone Bitart/Acetaminophen ([place] 10/325) 1 tab PO Q4H PRN PRN Reason: Pain > 4 Last Admin: 03/26/18 10:20 Dose: 1 tab Aspirin (Aspirin Chew) 81 mg PO DAILY [facility] Last Admin: 03/26/18 10:09 Dose: 81 mg Bisacodyl (Dulcolax Supp) 10 mg RECTAL DAILY PRN PRN Reason: SEVERE CONSITIPATION Clonidine HCl (Catapres) 0.1 mg PO Q6H PRN PRN Reason: SYS BP GREATER THAN 160 MMHG Enoxaparin Sodium (Lovenox Inj) 40 mg SQ Q24H [facility] Last Admin: 03/26/18 01:46 Dose: 40 mg Sodium Chloride (Ns Inj) 1,000 mls @ 0 mls/hr IV.SIG BOLUS GHADA Sodium Chloride (Ns Inj) 500 mls @ 0 mls/hr IV.SIG BOLUS [facility] Levetiracetam (Keppra) 500 mg PO BID [facility] Last Admin: 03/26/18 10:09 Dose: 500 mg Metoprolol Tartrate (Lopressor) 100 mg PO BID [facility] Last Admin: 03/26/18 10:09 Dose: 100 mg Ondansetron HCl (Zofran Inj) 4 mg IV.PUSH Q6H PRN PRN Reason: NAUSEA OR VOMITING Last Admin: 03/26/18 10:18 Dose: 4 mg Potassium Chloride (Klor-Con 10) 10 meq PO DAILY [facility] Last Admin: 03/26/18 10:09 Dose: 10 meq Pravastatin Sodium (Pravachol) 20 mg PO DAILY [facility] Last Admin: 03/26/18 10:09 Dose: 20 mg Prednisone (Deltasone) 5 mg PO DAILY [facility] Last Admin: 03/26/18 10:10 Dose: 5 mg Sennosides (Senokot) 17.2 mg PO Q12H PRN PRN Reason: Moderate Constipation Allergies Allergy/AdvReac Type Severity Reaction Status Date / Time No Known Allergies Allergy Unverified 03/25/18 18:10 Home Medications Medication Instructions Recorded Confirmed Type alendronate [Fosamax] 70 mg PO QWEEK 03/25/18 03/25/18 History aspirin 81 mg PO DAILY 03/25/18 03/25/18 History hydrocodone-acetaminophen 1 tab PO Q4-6H PRN 03/25/18 03/25/18 History levetiracetam [Keppra] 500 mg PO BID 03/25/18 03/25/18 History lovastatin 20 mg PO DAILY 03/25/18 03/25/18 History metoprolol tartrate 100 mg PO BID 03/25/18 03/25/18 History cpvddvxgqirk-feey-ohyiu acid 1 tab PO DAILY 03/25/18 03/25/18 History [Centrum Complete] naproxen 500 mg PO BID 03/25/18 03/25/18 History niacin 500 mg PO BID 03/25/18 03/25/18 History omega 6-ysn-zgo-fish oil [Fish Oil] 1,000 mg PO BID 03/25/18 03/25/18 History ondansetron [Zofran ODT] 4 mg PO Q6-8H PRN 03/25/18 03/25/18 History potassium chloride 10 meq PO DAILY 03/25/18 03/25/18 History prednisone 5 mg PO DAILY 03/25/18 03/25/18 History promethazine 12.5 mg PO Q6H PRN 03/25/18 03/25/18 History Exam Vital signs: Vital Signs 03/25/18 18:05 03/25/18 18:25 03/25/18 21:22 Temperature 98.3 F Pulse Rate 120 H 113 H 104 H Respiratory Rate 20 20 Blood Pressure 166/106 H 138/78 Pulse Oximetry 97 98 03/25/18 23:53 03/26/18 00:00 03/26/18 03:30 Temperature 97.8 F Pulse Rate 101 H 80 75 Respiratory Rate 16 Blood Pressure 141/71 H 169/78 H Pulse Oximetry 95 92 L 03/26/18 04:00 03/26/18 08:00 Temperature 98.5 F 96.9 F L Pulse Rate 80 73 Respiratory Rate 16 Blood Pressure 160/87 H 188/95 H Pulse Oximetry 92 L Intake & Output 03/25/18 03/26/18 03/26/18 18:59 06:59 18:59 Weight 58.8 kg Other: # Voids 2 2 Date of Last Bowel Movement 03/25/18 03/24/18 Narrative: GENERAL: Well-developed, well-nourished patient in [facility]. SKIN: Warm and dry. No rash. Left breast extensive ecchymosis with no palpable hematoma as well as left dorsal aspect of the foot. Area of left breast has been marked, no change from overnight. HEAD: Normocephalic. Atraumatic. EYES: Pupils equal and round. No scleral icterus. No injection or drainage. ENT: No nasal bleeding or discharge. Mucous membranes pink and moist. NECK: Supple. Trachea midline. CARDIOVASCULAR: Regular rate and rhythm. S1, S2 noted. No murmur appreciated. RESPIRATORY: No accessory muscle use. Clear to auscultation. Breath sounds equal bilaterally. GASTROINTESTINAL: Abdomen soft, non-tender, nondistended. Normoactive bowel sounds x4. MUSCULOSKELETAL: No obvious deformities. Extremities without clubbing, cyanosis , or edema. NEUROLOGICAL: Awake and alert. No obvious cranial nerve deficits. Motor grossly within normal limits. 5/5 muscle strength in bilateral upper and lower extremities. Normal speech. PSYCHIATRIC: Appropriate mood and affect; insight and judgment normal. Results - Labs CBC & Chem 7: 03/26/18 06:10 03/26/18 04:10 Labs: Laboratory Results - last 24 hr 03/25/18 03/25/18 03/25/18 18:20 18:20 18:25 CBC w Diff Auto diff final WBC 9.3 RBC 4.08 Hgb 12.9 Hct 38.0 MCV 93.2 MCH 31.5 MCHC 33.8 RDW 13.1 Plt Count 392 MPV 6.7 L Neut % (Auto) 76.7 H Lymph % (Auto) 15.3 Trigg % (Auto) 7.2 Eos % (Auto) 0.4 Baso % (Auto) 0.4 Neut # (Auto) 7.2 Lymph # (Auto) 1.4 Trigg # (Auto) 0.7 Eos # (Auto) 0.0 Baso # (Auto) 0.0 WBC Differential . Differential Comment . Sodium 141 Potassium 3.8 Chloride 105 Carbon Dioxide 23.2 Anion Gap 13 BUN 16 Creatinine 0.92 Estimated GFR 60 L Random Glucose 134 H Lactic Acid 1.9 Calcium 9.3 Total Bilirubin 1.0 AST 20 ALT 23 Alkaline Phosphatase 61 Total Creatine Kinase 171 CK-MB (CK-2) 1.9 CK-MB (CK-2) % Troponin I 0.02 Total Protein 7.5 Albumin 3.9 Urine Color Urine Clarity Urine pH Ur Specific [place] Urine Protein Urine Glucose (UA) Urine Ketones Urine Occult Blood Urine Nitrate Urine Bilirubin Urine Urobilinogen Ur Leukocyte Esterase Urine RBC Urine WBC Amorphous Sediment Urine Mucus Micro UA Comment Ur Microscopic Review Urine Culture Comments 03/25/18 03/25/18 03/26/18 21:03 22:02 04:10 CBC w Diff WBC RBC Hgb Hct MCV MCH MCHC RDW Plt Count MPV Neut % (Auto) Lymph % (Auto) Trigg % (Auto) Eos % (Auto) Baso % (Auto) Neut # (Auto) Lymph # (Auto) Trigg # (Auto) Eos # (Auto) Baso # (Auto) WBC Differential Differential Comment Sodium Potassium Chloride Carbon Dioxide Anion Gap BUN Creatinine Estimated GFR Random Glucose Lactic Acid Calcium Total Bilirubin AST ALT Alkaline Phosphatase Total Creatine Kinase 182 263 H CK-MB (CK-2) 2.3 3.5 CK-MB (CK-2) % 1.3 Troponin I 0.04 0.05 Total Protein Albumin Urine Color Yellow Urine Clarity Clear Urine pH 5.5 Ur Specific [place] 1.025 Urine Protein Trace Urine Glucose (UA) Negative Urine Ketones Trace H Urine Occult Blood Negative Urine Nitrate Negative Urine Bilirubin Negative Urine Urobilinogen 0.2 Ur Leukocyte Esterase Negative Urine RBC 0-3 Urine WBC 0-5 Amorphous Sediment Few H Urine Mucus Few H Micro UA Comment Cath-culture not ind Ur Microscopic Review Microscopic reviewed Urine Culture Comments Cath-cult not ind 03/26/18 03/26/18 04:10 06:10 CBC w Diff Auto diff final WBC 8.6 RBC 3.80 L Hgb 11.8 Hct 35.8 MCV 94.1 MCH 31.1 MCHC 33.0 RDW 13.1 Plt Count 356 MPV 6.9 L Neut % (Auto) 71.6 H Lymph % (Auto) 17.8 Trigg % (Auto) 9.2 H Eos % (Auto) 0.9 Baso % (Auto) 0.5 Neut # (Auto) 6.2 Lymph # (Auto) 1.5 Trigg # (Auto) 0.8 Eos # (Auto) 0.1 Baso # (Auto) 0.0 WBC Differential . Differential Comment . Sodium 141 Potassium 4.0 Chloride 106 Carbon Dioxide 26.2 Anion Gap 9 BUN 13 Creatinine 0.78 Estimated GFR 72 L Random Glucose 129 H Lactic Acid Calcium 8.7 Total Bilirubin AST ALT Alkaline Phosphatase Total Creatine Kinase CK-MB (CK-2) CK-MB (CK-2) % Troponin I Total Protein Albumin Urine Color Urine Clarity Urine pH Ur Specific [place] Urine Protein Urine Glucose (UA) Urine Ketones Urine Occult Blood Urine Nitrate Urine Bilirubin Urine Urobilinogen Ur Leukocyte Esterase Urine RBC Urine WBC Amorphous Sediment Urine Mucus Micro UA Comment Ur Microscopic Review Urine Culture Comments - Imaging Impressions Chest X-Ray 03/25/18 18:45 CONCLUSION: No acute abnormality demonstrated. Scarring of the right lung again noted. Foot X-Ray 03/25/18 19:00 CONCLUSION: Intact left foot. Chronic findings as above. Head CT 03/25/18 23:06 CONCLUSION: 1. No acute intracranial abnormality. . Caprini VTE Risk Assessment Caprini VTE Risk Assessment: Moderate/High Risk (score >= 2) Caprini Risk Assessment Model: Point Value = 1 Point Value = 2 Point Value = 3 Point Value = 5 Age 41-60 Minor surgery BMI > 25 kg/m2 Swollen legs Varicose veins or History of unexplained or recurrent spontaneous Oral contraceptives or hormone replacement Sepsis (< 1 month) Serious lung disease, including pneumonia (< 1 month) Abnormal pulmonary function Acute myocardial infarction Congestive heart failure (< 1 month) History of inflammatory bowel disease Medical patient at bed rest Age 61-74 Arthroscopic surgery Major open surgery (> 45 min) Laparoscopic surgery (> 45 min) Malignancy Confined to bed (> 72 hours) Immobilizing plaster cast Central venous access Age >= 75 History of VTE Family history of VTE Factor V Leiden Prothrombin [id number] Lupus anticoagulant Anticardiolipin antibodies Elevated serum homocysteine Heparin-induced thrombocytopenia Other congenital or acquired thrombophilia Stroke (< 1 month) Elective arthroplasty Hip, pelvis, or leg fracture Acute spinal cord injury (< 1 month) Prophylaxis Regimen: Total Risk Factor Score Risk Level Prophylaxis Regimen 0-1 Low Early ambulation 2 Moderate Order ONE of the following: *Sequential Compression Device (SCD) *Heparin 5000 units SQ BID 3-4 Higher Order ONE of the following medications: *Heparin 5000 units SQ TID *Enoxaparin/Lovenox 40 mg SQ daily (WT < 150 kg, CrCl > 30 mL/min) *Enoxaparin/Lovenox 30 mg SQ daily (WT < 150 kg, CrCl > 10-29 mL/min) *Enoxaparin/Lovenox 30 mg SQ BID (WT < 150 kg, CrCl > 30 mL/min) AND/OR *Sequential Compression Device (SCD) 5 or more Highest Order ONE of the following medications: *Heparin 5000 units SQ TID (Preferred with Epidurals) *Enoxaparin/Lovenox 40 mg SQ daily (WT < 150 kg, CrCl > 30 mL/min) *Enoxaparin/Lovenox 30 mg SQ daily (WT < 150 kg, CrCl > 10-29 mL/min) *Enoxaparin/Lovenox 30 mg SQ BID (WT < 150 kg, CrCl > 30 mL/min) AND *Sequential Compression Device (SCD) Assessment and Plan - Assessment (1) Nausea and vomiting Code(s): R11.2 - Nausea with vomiting, unspecified Status: Acute (2) Generalized weakness Code(s): R53.1 - Weakness Status: Acute - Plan This is a 77-year-old female patient with: Transient confusion -Reports of confusion and some memory issues upon arrival to the ED. -A head CT was done without any acute abnormality. -At time of assessment patient is ax0x3. Will continue to monitor. -Workup for sepsis in ED. Was given IVF. Lactic acid 1.9. UA and blood cultures negative to date. No leukocytosis. Nausea and vomiting x 2 days -Patient has had nausea and vomiting x 2 days. Has resolved since presentation. -Patient is tolerating PO intake well. Antiemetics as needed. Generalized weakness at home -Reports of some weakness at home. Lives independently. -Appreciate PT input, recommendations for rehab. Patient is insisting to go home today, states she does not need support. Denies any family locally to assist. -I feel at this time it is an unsafe discharge to let patient go home at this time. -Will assess for improvement and consult to case management to assist with DC planning and recommended DME. Left breast ecchymosis Left foot ecchymosis -Secondary to contusion from dropping a can of beans at home. -Chest x-ray reviewed and not showing any acute abnormality. -No change with ecchymosis, area marked and will continue to monitor. No signs of hematoma on palpation. -Foot x-ray without fracture. Hypertension, chronic: Elevated BP while hospitalized. Restart home BP meds. Continue to monitor trends. Clonidine as needed. History of COPD: Stable. Encouraged smoking cessation. DVT prophylaxis: SCDs. ambulation. Lovenox.
[2018-03-26] MEDS ORDERED: Aluminum/Magnesium/Simethacone Susp 30 ML UDC PO PRN (12:48)
--- NOTE | 2018-03-26 17:49 | ECG ---
Date Performed: 03/25/2018 Time Performed: 19:04:25 PTAGE: 77 years EKG: SINUS TACHYCARDIA LEFT VENTRICULAR HYPERTROPHY AND ST-T CHANGE Compared to previous tracing , sinus rate is faster ABNORMAL ECG PREVIOUS TRACING : 08/31/2017 22.46 DOCTOR: Gee Gonzalez Interpretating Date/Time 03/26/2018 17:48:52
--- NOTE | 2018-03-26 17:51 | ECG ---
Date Performed: 03/26/2018 Time Performed: 04:26:22 PTAGE: 77 years EKG: LIKELY Sinus rhythm , THOUGH P WAVES ARE DIFFICULT TO APPRECIATE DUE TO BASELINE ARTIFACT MODERATE VOLTAGE CRITERIA FOR L VH, CONSIDER NORMAL VARIANT POSSIBLE SEPTAL MYOCARDIAL INFARCTION ABNORMAL RHYTHM ECG PREVIOUS TRACING : 03/25/2018 19.04 DOCTOR: Gee Gonzalez Interpretating Date/Time 03/26/2018 17:49:58
[2018-03-27 08:33] VITALS: BP 149/83; TEMP 96.6; O2SAT 96
[2018-03-27] MEDS: levETIRAcetam 500 MG Tablet PO SCH (09:01)
[2018-03-27] MEDS: Metoprolol Tartrate 100 MG Tablet PO SCH (09:01)
[2018-03-27] MEDS: predniSONE 5 MG Tablet PO SCH (09:02)
[2018-03-27 09:05] VITALS: RESP 17
--- NOTE | 2018-03-27 09:25 | P.PNIM ---
Subjective Interval history: Follow up generalized weakness, nausea and vomiting. Patient seen and examined, sitting in chair comfortably in [facility]. Much improved. Feels at baseline. Family at bedside. Eager to go home. She is ambulating in her room without any problems. Ecchymosis on breast and left foot have improved. Denies any chest pain, shortness of breath or pain. Patient is insisting she has support at home to be discharged. CM assisting with DME. Will DC today after PT works with patient. Physical Exam Vital signs: Vital Signs 03/26/18 13:05 03/26/18 14:08 03/26/18 18:53 Temperature 98.0 F 98.2 F Pulse Rate 75 73 78 Respiratory Rate 16 15 Blood Pressure 175/81 H 152/94 H 141/80 H Pulse Oximetry 98 95 03/26/18 20:00 03/27/18 00:00 03/27/18 04:00 Temperature 97.2 F L 98.1 F 97.0 F L Pulse Rate 74 66 73 Respiratory Rate 16 16 16 Blood Pressure 160/76 H 179/82 H 137/75 Pulse Oximetry 90 L 96 98 03/27/18 08:00 03/27/18 09:04 Temperature 96.6 F L Pulse Rate 75 Respiratory Rate 18 17 Blood Pressure 149/83 H Pulse Oximetry 96 Intake & Output 03/26/18 03/27/18 03/27/18 18:59 06:59 18:59 Intake Total 770 / 770 200 / 200 Balance 770 / 770 200 / 200 Weight 58.8 kg Intake: IV 770 / 770 NS Inj 1,000 ML @ 70 mls/hr IV. 770 / 770 CONT .[id number] [facility] Rx#: [id number] Oral 200 / 200 Other: # Voids 2 2 Date of Last Bowel Movement 03/24/18 Narrative: GENERAL: Well-developed, well-nourished patient in [facility]. SKIN: Warm and dry. No rash. Left breast with improving ecchymosis with no palpable hematoma as well as left dorsal aspect of the foot. Area of left breast has been marked, no change from overnight. HEAD: Normocephalic. Atraumatic. EYES: Pupils equal and round. No scleral icterus. No injection or drainage. ENT: No nasal bleeding or discharge. Mucous membranes pink and moist. NECK: Supple. Trachea midline. CARDIOVASCULAR: Regular rate and rhythm. S1, S2 noted. No murmur appreciated. RESPIRATORY: No accessory muscle use. Clear to auscultation. Breath sounds equal bilaterally. GASTROINTESTINAL: Abdomen soft, non-tender, nondistended. Normoactive bowel sounds x4. MUSCULOSKELETAL: No obvious deformities. Extremities without clubbing, cyanosis , or edema. NEUROLOGICAL: Awake and alert. No obvious cranial nerve deficits. Motor grossly within normal limits. 5/5 muscle strength in bilateral upper and lower extremities. Normal speech. PSYCHIATRIC: Appropriate mood and affect; insight and judgment normal. - Urinary Catheter Management Straight Cath placed during this visit: yes Reason for continuing: Not indwelling catheter Insertion date: 03/25/18 Insertion time: 21:04 Results - Labs CBC & Chem 7: 03/26/18 06:10 03/26/18 04:10 Microbiology 03/25/18 18:20 Blood - Peripheral Aerobic Blood Culture - Preliminary No growth in 1 day 03/25/18 18:20 Blood - Peripheral Anaerobic Blood Culture - Preliminary No growth in 1 day 03/25/18 18:25 Blood - Peripheral Aerobic Blood Culture - Preliminary No growth in 1 day 03/25/18 18:25 Blood - Peripheral Anaerobic Blood Culture - Preliminary No growth in 1 day Assessment and Plan - Assessment (1) Nausea and vomiting Code(s): R11.2 - Nausea with vomiting, unspecified Status: Acute (2) Generalized weakness Code(s): R53.1 - Weakness Status: Acute - Plan This is a 77-year-old female patient with: Transient confusion. Resolved. -Reports of confusion and some memory issues upon arrival to the ED. -A head CT was done without any acute abnormality. -At time of assessment patient is ax0x3. Will continue to monitor. -Workup for sepsis in ED. Was given IVF. Lactic acid 1.9. UA and blood cultures negative to date. No leukocytosis. Nausea and vomiting x 2 days. Resolved. -Patient has had nausea and vomiting x 2 days. Has resolved since presentation. -Patient is tolerating PO intake well. Antiemetics as needed. Generalized weakness at home, improving. -Reports of some weakness at home. Lives independently. -Appreciate PT input, recommendations for rehab but if support at home can do HHC. Patient is insisting to go home, states she does have the support she needs at home. -Spoke with patient and family. CM assisting with DME and HHC. Left breast ecchymosis. Improving. Left foot ecchymosis. Improving. -Secondary to contusion from dropping a can of beans at home. -Chest x-ray reviewed and not showing any acute abnormality. -No change with ecchymosis, area marked and will continue to monitor. No signs of hematoma on palpation. -Foot x-ray without fracture. -Continue to monitor closely. Hypertension, chronic: Elevated BP while hospitalized. Restart home BP meds. Continue to monitor trends. Clonidine as needed. History of COPD: Stable. Encouraged smoking cessation. DVT prophylaxis: SCDs. ambulation. Lovenox. DC home. Follow up PCP. Activity as tolerated. Diet as tolerated. RX as ordered.
[2018-03-27 10:21] VITALS: PULSE 69
--- NOTE | 2018-03-27 10:30 | P.DCO ---
- Diagnosis (3) Chest wall contusion (4) Contusion of foot, left - Physical Therapy Order: Evaluate and treat, Improve ambulation, Strength and gait training - Home Health Nursing Order: Medical education, Signs/symptoms of disease process, Medication education-adverse effect, Nursing assessment with vital signs - Case Management Consult Yes - Certification I have seen patient Kelsea Day on 03/27/18. My clinical findings support the need for the requested home health care services because: Deconditioned with increased weakness I certify that my clinical findings support that this patient is homebound because: Unsteady gait/balance (3) Chest wall contusion Qualifiers: Encounter type: initial encounter Laterality: left Qualified Code(s): S20.212A - Contusion of left front wall of thorax, initial encounter (4) Contusion of foot, left Qualifiers: Encounter type: initial encounter Qualified Code(s): S90.32XA - Contusion of left foot, initial encounter
== END 2018-03-27 10:59 | disposition home health service (06) ==
LOC: PHEDA 17:59 → PHED 17:59 → PH3 03-26 00:15
PROVIDERS: ADMIT Internal Medicine; ATTEND Internal Medicine